=== PATIENT | female | born 1995 | race Caucasian/White ===

== ENCOUNTER 2018-01-02 12:28 | Emergency (ER) | payer SELFPAY ==
--- NOTE | 2018-01-02 12:58 | EDPHYS ---
Physician Documentation [facility] Name: Shania Martino Age: 22 yrs Sex: Female : 1995 Arrival Date: 01/02/2018 Time: 12:30 Bed 24 Private MD: Gómez Nunez ED Physician Akin Crockett HPI: 01/02 12:55 This 22 yrs old Female presents to ER via Ambulatory with complaints of Ear rn Pain. 12:55 The patient presents with pain. The complaints affect the right ear. Onset: The rn symptoms/episode began/occurred 1 week(s) ago. Modifying factors: The symptoms are alleviated by nothing, the symptoms are aggravated by pulling on ears, touching. Severity of symptoms: At their worst the symptoms were mild in the emergency department the symptoms are unchanged. The patient has not experienced similar symptoms in the past. The patient has not recently seen a physician. 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 - Social history:: Smoking status: Patient uses tobacco products, smokes one-half pack cigarettes per day. - Ebola Screening: : Patient negative for fever greater than or equal to 101.5 degrees Fahrenheit, and additional compatible Ebola Virus Disease symptoms Patient denies exposure to infectious person Patient denies travel to an Ebola-affected area in the 21 days before illness onset No symptoms or risks identified at this time. - Family history:: not pertinent. - Hospitalizations: : No recent hospitalization is reported. ROS: 12:55 Constitutional: Negative for fever, chills, and weight loss, Eyes: Negative for injury, rn pain, redness, and discharge, ENT: + right ear pain and drainage Exam: 12:55 Constitutional: This is a well developed, well nourished patient who is awake, alert, rn and in no acute distress. ENT: right TM with swelling and pain with palpation, + greenish discharge in external canal, TM not visualized Vital Signs: 12:52 BP 131 / 82; Pulse 105; Resp 16; Temp 98.4; Pulse Ox 98% on R/A; Weight 77.11 kg; aj Height 4 ft. 9 in. (144.78 cm); 12:52 Body Mass Index 36.79 (77.11 kg, 144.78 cm) aj MDM: 12:47 Patient medically screened. rn 12:55 Differential diagnosis: otitis externa. Data reviewed: vital signs, nurses notes, and rn as a result, I will discharge patient. Counseling: I had a detailed discussion with the patient and/or guardian regarding: the historical points, exam findings, and any diagnostic results supporting the discharge/admit diagnosis, the need for outpatient follow up, to return to the emergency department if symptoms worsen or persist or if there are any questions or concerns that arise at home. Special discussion: I discussed with the patient/guardian in detail that at this point there is no indication for admission to the hospital. It is understood, however, that if the symptoms persist or worsen the patient needs to return immediately for re-evaluation. Based on the history and exam findings, there is no indication for further emergent testing or inpatient evaluation. I discussed with the patient/guardian the need to see the ENT specialist for further evaluation of the symptoms. ED course: Told to f/u with ENT given diabetic and possible progression or possibility of fungal infection if abx dont work.. Administered Medications: No medications were administered Disposition: 01/02/18 12:57 Discharged to Home. Impression: Otitis externa in other diseases classified elsewhere, right ear. - Condition is Stable. - Discharge Instructions: Otitis Externa. - Prescriptions for Cipro 500 mg Oral Tablet - take 1 tablet by ORAL route every 12 hours for 10 days; 20 tablet. Cortisporin- TC 3.3-3-10-0.5 mg/mL Otic Suspension - instill 4 drop by OTIC route every 6 hours; 1 bottle. - Medication Reconciliation Form, Thank You Letter, Antibiotic Education, Prescription Opioid Use form. - Follow up: Nidia Galo MD; When: As needed; Reason: Recheck today's complaints, Re-evaluation by your physician. - Problem is an ongoing problem. - Symptoms are unchanged. Signatures: Nai Pelletier RN RN Akin Casas MD MD rn Reaves, Karey, RN RN kr2 Corrections: (The following items were deleted from the chart) 13:13 12:57 01/02/2018 12:57 Discharged to Home. Impression: Otitis externa in other diseases kr2 classified elsewhere, right ear. Condition is Stable. Prescriptions for Cipro 500 mg Oral Tablet - take 1 tablet by ORAL route every 12 hours for 10 days; 20 tablet, Cortisporin-TC 3.3-3-10-0.5 mg/mL Otic Suspension - instill 4 drop by OTIC route every 6 hours; 1 bottle. and Forms are Medication Reconciliation Form, Thank You Letter, Antibiotic Education, Prescription Opioid Use. Follow up: Nidia Galo; When: As needed; Reason: Recheck today's complaints, Re-evaluation by your physician. Problem is an ongoing problem. Symptoms are unchanged. rn
--- NOTE | 2018-01-02 12:58 | ER ---
Nurse's Notes [facility] Name: Shania Martino Age: 22 yrs Sex: Female : 1995 Arrival Date: 01/02/2018 Time: 12:30 Bed 24 Private MD: Gómez Nunez Diagnosis: Otitis externa in other diseases classified elsewhere, right ear Presentation: 01/02 12:50 Presenting complaint: Patient states: Right ear pain for 1 week. Denies fever. aj Transition of care: patient was not received from another setting of care. Onset of symptoms was December 27, 2017. Risk Assessment: Do you want to hurt yourself or someone else? Patient reports no desire to harm self or others. Initial Sepsis Screen: Does the patient meet any 2 criteria? No. Patient's initial sepsis screen is negative. Does the patient have a suspected source of infection? No. Patient's initial sepsis screen is negative. Care prior to arrival: None. 12:50 Method Of Arrival: Ambulatory aj 12:50 Acuity: NEGRO 5 aj Triage Assessment: 12:52 General: Appears in no apparent distress. comfortable, Behavior is calm, cooperative, aj appropriate for age. Pain: Complains of pain in right ear. EENT: Reports pain in right ear. Neuro: Level of Consciousness is awake, alert, obeys commands, Oriented to person, place, time, situation, Appropriate for age. Respiratory: Airway is patent Respiratory effort is even, unlabored, Respiratory pattern is regular, symmetrical. Derm: Skin is intact, is healthy with good turgor, Skin is pink, warm \T\ dry. normal. 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 - Social history:: Smoking status: Patient uses tobacco products, smokes one-half pack cigarettes per day. - Ebola Screening: : Patient negative for fever greater than or equal to 101.5 degrees Fahrenheit, and additional compatible Ebola Virus Disease symptoms Patient denies exposure to infectious person Patient denies travel to an Ebola-affected area in the 21 days before illness onset No symptoms or risks identified at this time. - Family history:: not pertinent. - Hospitalizations: : No recent hospitalization is reported. Screenin:12 Abuse screen: Denies threats or abuse. Denies injuries from another. Nutritional kr2 screening: No deficits noted. Tuberculosis screening: No symptoms or risk factors identified. Fall Risk None identified. Assessment: 13:00 General: Appears in no apparent distress. comfortable, well groomed, well developed, kr2 well nourished, Behavior is calm, cooperative, appropriate for age. Pain: Complains of pain in right ear Pain currently is 8 out of 10 on a pain scale. Quality of pain is described as aching, tender, Is continuous. Neuro: Level of Consciousness is awake, alert, obeys commands, Oriented to person, place, time, situation, Appropriate for age. Cardiovascular: Capillary refill < 3 seconds in bilateral fingers Patient's skin is warm and dry. Respiratory: Airway is patent Respiratory effort is even, unlabored, Respiratory pattern is regular, symmetrical. EENT: Ear canal w/ drainage noted from right ear. Derm: Skin is intact, is healthy with good turgor, Skin is pink, warm \T\ dry. Vital Signs: 12:52 BP 131 / 82; Pulse 105; Resp 16; Temp 98.4; Pulse Ox 98% on R/A; Weight 77.11 kg; aj Height 4 ft. 9 in. (144.78 cm); 12:52 Body Mass Index 36.79 (77.11 kg, 144.78 cm) aj ED Course: 12:30 Patient arrived in ED. sb2 12:31 Gómez Nunez MD is Private Physician. sb2 12:47 Akin Crockett MD is Attending Physician. rn 12:51 Triage completed. aj 12:52 Arm band placed on right wrist. Patient placed in an exam room. aj 12:57 Nidia Galo MD is Referral Physician. rn 13:10 Mandi Larios, ANASTASIA is Primary Nurse. kr2 13:12 Patient has correct armband on for positive identification. Bed in low position. Call kr2 light in reach. Side rails up X 1. Pulse ox on. NIBP on. Door closed. Warm blanket given. Head of bed elevated. 13:12 No provider procedures requiring assistance completed. Patient did not have IV access kr2 during this emergency room visit. Administered Medications: No medications were administered Outcome: 12:57 Discharge ordered by . rn 13:12 Discharged to home ambulatory, with family. kr2 13:12 Condition: good 13:12 Discharge instructions given to patient, family, Instructed on discharge instructions, follow up and referral plans. medication usage, Demonstrated understanding of instructions, follow-up care, medications, Prescriptions given X 2. 13:13 Patient left the ED. kr2 Signatures: Nai Pelletier RN Akin Tam MD MD rn Reaves, Karey, RN RN kr2 Mary Menendez sb2
[2018-01-02 13:16] VITALS: BP 131/82; TEMP 98.4; O2SAT 98
== END 2018-01-02 13:13 | disposition home or self-care (01) ==
LOC: ER 12:28
DX: H60.91 Unspecified otitis externa, right ear (principal); F17.210 Nicotine dependence, cigarettes, uncomplicated; F20.9 Schizophrenia, unspecified
CPT/HCPCS: 99283

== ENCOUNTER 2018-03-23 21:51 | Emergency (ER) | payer OTHER, SELFPAY ==
--- NOTE | 2018-03-23 23:12 | ER ---
Nurse's Notes [facility] Name: Shania Martino Age: 23 yrs Sex: Female : 1995 Arrival Date: 03/23/2018 Time: 21:52 Bed 23 Private MD: Diagnosis: Other sprain of right thumb Presentation: 03/23 22:25 Presenting complaint: Patient states: right hand, wrist pain started tonight while tl3 playing with daughter, unable to move wrist, thumb or index finger. Transition of care: patient was not received from another setting of care. Onset of symptoms was March 23, 2018. Risk Assessment: Do you want to hurt yourself or someone else? Patient reports no desire to harm self or others. Initial Sepsis Screen: Does the patient meet any 2 criteria? No. Patient's initial sepsis screen is negative. Does the patient have a suspected source of infection? No. Patient's initial sepsis screen is negative. Care prior to arrival: None. 22:25 Method Of Arrival: Ambulatory tl3 22:25 Acuity: NEGRO 4 tl3 Triage Assessment: 22:28 General: Appears in no apparent distress. uncomfortable, well groomed, well developed, tl3 well nourished, Behavior is calm, cooperative, appropriate for age. Pain: Complains of pain in dorsal aspect of distal phalanx of right thumb, dorsal aspect of proximal phalanx of right thumb, dorsal aspect of distal phalanx of right index finger, dorsal aspect of middle phalanx of right index finger, dorsal aspect of proximal phalanx of right index finger, dorsal aspect of right wrist and Right first web space. EENT: No signs and/or symptoms were reported regarding the EENT system. Neuro: Level of Consciousness is awake, alert, obeys commands, Oriented to person, place, time, situation, Appropriate for age. Cardiovascular: Patient's skin is warm and dry. Respiratory: Airway is patent Respiratory effort is even, unlabored, Respiratory pattern is regular, symmetrical. GI: No signs and/or symptoms were reported involving the gastrointestinal system. : No signs and/or symptoms were reported regarding the genitourinary system. Derm: No signs and/or symptoms reported regarding the dermatologic system. Musculoskeletal: Reports pain in right hand. 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 - Social history:: Smoking status: unknown. - Ebola Screening: : No symptoms or risks identified at this time. - Family history:: not pertinent. Screenin:29 Abuse screen: Denies threats or abuse. Nutritional screening: No deficits noted. tl3 Tuberculosis screening: No symptoms or risk factors identified. Fall Risk None identified. Assessment: 23:27 Reassessment: Patient appears in no apparent distress at this time. No changes from tl3 previously documented assessment. Patient and/or family updated on plan of care and expected duration. Pain level reassessed. Vital Signs: 22:28 BP 122 / 88; Pulse 101; Resp 18; Temp 98.6; Pulse Ox 100% on R/A; tl3 23:27 BP 137 / 72; Pulse 101; Resp 18; Pulse Ox 96% ; tl3 ED Course: 21:52 Patient arrived in ED. ds1 22:11 Harpreet Briones MD is Attending Physician. mau 22:19 Dee Johnson, ANASTASIA is Primary Nurse. tl3 22:26 Triage completed. tl3 22:28 Arm band placed on left wrist. tl3 23:11 Jere Reyes MD is Referral Physician. mau 23:19 X-ray completed. Portable x-ray completed in exam room. Patient tolerated procedure kw well. 23:22 Hand Right 3 View XRAY In Process Unspecified. EDMS 23:22 Wrist Right 3 View XRAY In Process Unspecified. EDMS 23:27 Orthoglass splint: Thumb spica splint applied on right forearm. ds4 23:29 Patient has correct armband on for positive identification. Bed in low position. tl3 23:29 No provider procedures requiring assistance completed. Patient did not have IV access tl3 during this emergency room visit. Administered Medications: 23:18 Drug: Motrin 600 mg Route: PO; rv 23:29 Follow up: Response: No adverse reaction tl3 Outcome: 23:11 Discharge ordered by . mau 23:29 Discharged to home ambulatory. tl3 23:29 Condition: improved 23:29 Discharge instructions given to patient, Instructed on discharge instructions, follow up and referral plans. Demonstrated understanding of instructions, follow-up care, medications, splint care, Prescriptions given X 2. 23:38 Patient left the ED. tl3 Signatures: Dispatcher [employer] EDMS Harpreet Briones MD MD cha Sanford, Demi ds1 Mary Ann Chadwick Donovan ds4 Charla Maynard bb2 Dee Johnson, ANASTASIA RN tl3 Pete Jansen, ANASTASIA RN rv Corrections: (The following items were deleted from the chart) 23:19 23:18 X-ray completed. Portable x-ray completed in exam room. Patient tolerated bb2 procedure well. bb2
--- NOTE | 2018-03-23 23:12 | EDPHYS ---
Physician Documentation [facility] Name: Shania Martino Age: 23 yrs Sex: Female : 1995 Arrival Date: 03/23/2018 Time: 21:52 Bed 23 Private MD: ED Physician Harpreet Briones HPI: 03/23 22:57 This 23 yrs old Female presents to ER via Ambulatory with complaints of Hand mau Pain. 22:57 The patient or guardian reports decreased range of motion, pain. The complaints affect mau the MCP of right thumb and CMC of right thumb. Context: The problem was sustained at home. Onset: The symptoms/episode began/occurred 1 week(s) ago. Modifying factors: The symptoms are alleviated by holding still, the symptoms are aggravated by movement, dependent position. Associated signs and symptoms: The patient has no apparent associated signs or symptoms. Severity of symptoms: At their worst the symptoms were mild, moderate, in the emergency department the symptoms are unchanged. The patient has not experienced similar symptoms in the past. 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 - Social history:: Smoking status: unknown. - Ebola Screening: : No symptoms or risks identified at this time. - Family history:: not pertinent. ROS: 22:57 Constitutional: Negative for fever, chills, and weight loss, Eyes: Negative for injury, mau pain, redness, and discharge, ENT: Negative for injury, pain, and discharge, Neck: Negative for injury, pain, and swelling, Cardiovascular: Negative for chest pain, palpitations, and edema, Respiratory: Negative for shortness of breath, cough, wheezing, and pleuritic chest pain, Abdomen/GI: Negative for abdominal pain, nausea, vomiting, diarrhea, and constipation, Back: Negative for injury and pain, : Negative for injury, bleeding, discharge, and swelling, Skin: Negative for injury, rash, and discoloration, Neuro: Negative for headache, weakness, numbness, tingling, and seizure, Psych: Negative for depression, anxiety, suicide ideation, homicidal ideation, and hallucinations, Allergy/Immunology: Negative for hives, rash, and allergies, Endocrine: Negative for neck swelling, polydipsia, polyuria, polyphagia, and marked weight changes, Hematologic/Lymphatic: Negative for swollen nodes, abnormal bleeding, and unusual bruising. 22:57 MS/extremity: Positive for decreased range of motion, pain, swelling, tenderness, of the dorsal aspect of proximal phalanx of right thumb and dorsal aspect of right wrist. Exam: 22:57 Constitutional: This is a well developed, well nourished patient who is awake, alert, mau and in no acute distress. Head/Face: Normocephalic, atraumatic. Eyes: Pupils equal round and reactive to light, extra-ocular motions intact. Lids and lashes normal. Conjunctiva and sclera are non-icteric and not injected. Cornea within normal limits. Periorbital areas with no swelling, redness, or edema. ENT: Nares patent. No nasal discharge, no septal abnormalities noted. Tympanic membranes are normal and external auditory canals are clear. Oropharynx with no redness, swelling, or masses, exudates, or evidence of obstruction, uvula midline. Mucous membranes moist. Neck: Trachea midline, no thyromegaly or masses palpated, and no cervical lymphadenopathy. Supple, full range of motion without nuchal rigidity, or vertebral point tenderness. No Meningismus. Chest/axilla: Normal chest wall appearance and motion. Nontender with no deformity. No lesions are appreciated. Cardiovascular: Regular rate and rhythm with a normal S1 and S2. No gallops, murmurs, or rubs. Normal PMI, no JVD. No pulse deficits. Respiratory: Lungs have equal breath sounds bilaterally, clear to auscultation and percussion. No rales, rhonchi or wheezes noted. No increased work of breathing, no retractions or nasal flaring. Abdomen/GI: Soft, non-tender, with normal bowel sounds. No distension or tympany. No guarding or rebound. No evidence of tenderness throughout. Back: No spinal tenderness. No costovertebral tenderness. Full range of motion. Skin: Warm, dry with normal turgor. Normal color with no rashes, no lesions, and no evidence of cellulitis. Neuro: Awake and alert, GCS 15, oriented to person, place, time, and situation. Cranial nerves II-XII grossly intact. Motor strength 5/5 in all extremities. Sensory grossly intact. Cerebellar exam normal. Normal gait. Psych: Awake, alert, with orientation to person, place and time. Behavior, mood, and affect are within normal limits. 22:57 Musculoskeletal/extremity: ROM: limited active range of motion, limited passive range of motion, Circulation is intact in all extremities. Compartment Syndrome exam of affected extremity: is normal. DVT Exam: no swelling, negative Homans' sign noted on exam, no appreciated bluish discoloration, no erythema, no increased warmth, pain, tenderness. Vital Signs: 22:28 BP 122 / 88; Pulse 101; Resp 18; Temp 98.6; Pulse Ox 100% on R/A; tl3 23:27 BP 137 / 72; Pulse 101; Resp 18; Pulse Ox 96% ; tl3 MDM: 22:11 Patient medically screened. [facility] 22:57 Data reviewed: vital signs, nurses notes, radiologic studies. [facility] 03/23 22:56 Order name: Hand Right 3 View XRAY [facility] 03/23 22:56 Order name: Wrist Right 3 View XRAY [facility] 03/23 22:56 Order name: Thumb Spica Splint; Complete Time: 23:26 [facility] Administered Medications: 23:18 Drug: Motrin 600 mg Route: PO; rv 23:29 Follow up: Response: No adverse reaction tl3 Disposition: 03/23/18 23:11 Discharged to Home. Impression: Other sprain of right thumb. - Condition is Stable. - Discharge Instructions: Thumb Sprain. - Prescriptions for Ibuprofen 600 mg Oral Tablet - take 1 tablet by ORAL route every 8 hours As needed take with food; 21 tablet. Tylenol- Codeine #3 300-30 mg Oral Tablet - take 2 tablets by ORAL route every 6 hours As needed; 26 tablet. - Medication Reconciliation Form, Thank You Letter, Antibiotic Education, Prescription Opioid Use form. - Follow up: Private Physician; When: 2 - 3 days; Reason: Recheck today's complaints, Continuance of care, Re-evaluation by your physician. Follow up: Jere Reyes; When: 2 - 3 days; Reason: Recheck today's complaints, Re-evaluation by your physician. - Problem is new. - Symptoms have improved. Signatures: Dispatcher [employer] EDHarpreet Evangelista MD MD cha Lowrey, Tammy, RN RN tl3 Pete Jansen, RN RN rv Corrections: (The following items were deleted from the chart) 23:38 23:11 03/23/2018 23:11 Discharged to Home. Impression: Other sprain of right thumb. tl3 Condition is Stable. Discharge Instructions: Thumb Sprain. Prescriptions for Ibuprofen 600 mg Oral Tablet - take 1 tablet by ORAL route every 8 hours As needed take with food; 21 tablet, Tylenol-Codeine #3 300-30 mg Oral Tablet - take 2 tablets by ORAL route every 6 hours As needed; 26 tablet. and Forms are Medication Reconciliation Form, Thank You Letter, Antibiotic Education, Prescription Opioid Use. Follow up: Private Physician; When: 2 - 3 days; Reason: Recheck today's complaints, Continuance of care, Re-evaluation by your physician. Follow up: Jere Reyes; When: 2 - 3 days; Reason: Recheck today's complaints, Re-evaluation by your physician. Problem is new. Symptoms have improved. mau
[2018-03-23] MEDS ORDERED: IBUPROFEN 400 MG TAB ONE (23:22)
[2018-03-23] MEDS ORDERED: IBUPROFEN 200 MG TAB PO ONE (23:22)
[2018-03-24 01:04] VITALS: TEMP 98.6
[2018-03-24 01:05] VITALS: BP 137/72; O2SAT 96
--- NOTE | 2018-03-24 08:43 | RAD REPORT ---
EXAM DESCRIPTION: RAD - Wrist Right 3 View - 03/23/2018 11:22 pm CLINICAL HISTORY: Hand and wrist pain, no specific trauma history or point tenderness detailed COMPARISON: None. FINDINGS: No fracture is identified. There is no dislocation or periosteal reaction noted. No acute bone or joint finding seen. No foreign body or other soft tissue abnormality. IMPRESSION: Negative right wrist examination.
--- NOTE | 2018-03-24 08:45 | RAD REPORT ---
EXAM DESCRIPTION: RAD - Hand Right 3 View - 03/23/2018 11:22 pm CLINICAL HISTORY: Right hand and wrist pain common no specific trauma history or point tenderness de lineated. COMPARISON: None. FINDINGS: No fracture is identified. There is no dislocation or periosteal reaction noted. No forei gn body or other soft tissue abnormality. IMPRESSION: Negative right hand examination.
== END 2018-03-23 23:38 | disposition home or self-care (01) ==
LOC: ER 21:51
DX: S63.681A Other sprain of right thumb, initial encounter (principal); X58.XXXA Exposure to other specified factors, initial encounter; Y93.9 Activity, unspecified; Y92.009 Unspecified place in unspecified non-institutional (private) residence as the place of occurrence of the external cause; F31.9 Bipolar disorder, unspecified; F32.9 Major depressive disorder, single episode, unspecified
CPT/HCPCS: 99284

== ENCOUNTER 2018-04-24 18:20 | Emergency (ER) | payer OTHER ==
[2018-04-24] MEDS ORDERED: ONDANSETRON 4 MG/2 ML VIAL ONE (19:07)
[2018-04-24] MEDS ORDERED: FENTANYL CITR 100 MCG/2 ML ONE (19:07)
[2018-04-24] MEDS ORDERED: NA CHLORIDE 0.9% 1,000 ML ONE (19:08)
[2018-04-24 19:18] LABS: Absolute Monocytes 0.7 K/uL (0.1-1.3); Absolute Neutrophil 7.3 K/uL (1.8-8.0); Basophils % 0.6 % (0-1.3); Eosinophils % 2.3 % (0-4.4); Lymphocytes % 32.4 % (15.3-44.8); MCH 29.6 pg (27.0-35.0); MCV 87.3 fL (80-100); MPV 8.5 fL (7.6-11.3); Monocytes % 5.9 % (3.3-12.3); RBC Red Blood Cell Count 4.92 M/uL (3.86-4.86)
[2018-04-24 19:33] LABS: Albumin 3.9 g/dL (3.4-5.0); Bilirubin Total 0.3 mg/dL (0.2-1.0); Potassium 3.9 mmol/L (3.5-5.1); Protein, Total 7.5 g/dL (6.4-8.2)
[2018-04-24 19:33] LABS: Urine Blood TRACE (NEG); Urine Glucose NEGATIVE (NEG); Urine Protein NEGATIVE (NEG); Urine Specific Gravity >1.030 (1.005-1.030)
--- NOTE | 2018-04-24 20:00 | RAD REPORT ---
EXAM DESCRIPTION: CT - Stone Protocol - 04/24/2018 7:48 pm CLINICAL HISTORY: Flank pain. Abd pain;Flank pain COMPARISON: No comparisons TECHNIQUE: Axial images were obtained without oral or IV contrast. Lack of contrast limits solid org an and vascular assessment. The [id number] spans the entirety of the system partially obscuring uppermost abdomen and lung bases. Coronal reformatted images were obtained and reviewed. All CT scans are performed using dose optimization technique as appropriate and may include automated exposure control or mA/KV adjustment according to patient size. FINDINGS: The lower lung sher are clear. Imaged portions of the liver and spleen show no suspicious findings on non-contrast imaging. The panc reas and adrenal glands are normal. No pathologic lymphadenopathy in the abdomen or pelvis. No urinary tract stones or obstructive uropathy. No bowel obstruction, free air, free fluid or abscess. Normal appendix noted. No significant bony abnormality. IMPRESSION: No urinary tract stones or obstructive uropathy.
--- NOTE | 2018-04-24 20:04 | ER ---
Nurse's Notes [facility] Name: Shania Martino Age: 23 yrs Sex: Female : 1995 Arrival Date: 04/24/2018 Time: 18:22 Bed 6 Private MD: KAREN MIGUEL Diagnosis: Abdominal tenderness;Bipolar disorder;Dysuria Presentation: 04/24 18:31 Presenting complaint: Patient states: left flank pain/kidney pain X 1 week, denies pain iw or burning with urination, has had some vomiting and nausea, denies fever. Transition of care: patient was not received from another setting of care. Onset of symptoms was April 17, 2018. Risk Assessment: Do you want to hurt yourself or someone else? Patient reports no desire to harm self or others. Initial Sepsis Screen: Does the patient meet any 2 criteria? No. Patient's initial sepsis screen is negative. Does the patient have a suspected source of infection? No. Patient's initial sepsis screen is negative. Care prior to arrival: None. 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 - Social history:: Smoking status: Patient uses tobacco products, denies chronic smoking, but will smoke occasionally. - Ebola Screening: : Patient negative for fever greater than or equal to 101.5 degrees Fahrenheit, and additional compatible Ebola Virus Disease symptoms Patient denies exposure to infectious person Patient denies travel to an Ebola-affected area in the 21 days before illness onset No symptoms or risks identified at this time. - Family history:: not pertinent. Screenin:47 Abuse screen: Denies threats or abuse. Denies injuries from another. Nutritional rv screening: No deficits noted. Tuberculosis screening: No symptoms or risk factors identified. Fall Risk None identified. Assessment: 18:45 General: Appears in no apparent distress. comfortable, Behavior is calm, cooperative. rv Pain: Complains of pain in left flank Pain radiates to right flank. Neuro: Level of Consciousness is awake, alert, obeys commands, Oriented to person, place, time, situation. Cardiovascular: Capillary refill < 3 seconds. Respiratory: Airway is patent. GI: No signs and/or symptoms were reported involving the gastrointestinal system. : No signs and/or symptoms were reported regarding the genitourinary system. EENT: No signs and/or symptoms were reported regarding the EENT system. Derm: Skin is intact. 19:11 Reassessment: Patient appears in no apparent distress at this time. No changes from ak1 previously documented assessment. Patient is alert, oriented x 3, equal unlabored respirations, skin warm/dry/pink. Vital Signs: 18:34 BP 131 / 86; Pulse 104; Resp 16; Pulse Ox 98% on R/A; Weight 85.73 kg; Height 4 ft. 9 iw in. (144.78 cm); Pain 8/10; 18:48 Temp 98.5(O); rv 20:17 BP 121 / 71; Pulse 87; Resp 19; Temp 98.6; Pulse Ox 100% on R/A; Pain 1/10; ak1 18:34 Body Mass Index 40.90 (85.73 kg, 144.78 cm) iw ED Course: 18:22 Patient arrived in ED. rg4 18:22 KAREN MIGUEL is Private Physician. rg4 18:26 Harpreet Briones MD is Attending Physician. mau 18:32 Triage completed. iw 18:34 Arm band placed on. iw 18:47 Patient has correct armband on for positive identification. Bed in low position. Call rv light in reach. Side rails up X 1. Adult w/ patient. Pulse ox on. NIBP on. 18:57 Nichole Gould RN is Primary Nurse. ak1 19:00 Initial lab(s) drawn, by de, sent to lab. Inserted saline lock: 20 gauge in left rv forearm, using aseptic technique. Blood collected. 19:14 EKG done, by ED staff, reviewed by Harpreet Briones MD. cb2 19:20 Report given to NICHOLE OCONNOR. rv 19:30 Urine Dipstick--Ancillary (enter results) Sent. ak1 19:30 Urine --Ancillary (enter results) Sent. ak1 19:49 CT Stone Protocol In Process Unspecified. EDAZ 20:04 KAREN MIGUEL is Referral Physician. [facility] 20:17 No provider procedures requiring assistance completed. IV discontinued, intact, ak1 bleeding controlled, No redness/swelling at site. Pressure dressing applied. Administered Medications: 19:00 Drug: NS 0.9% 1000 ml Route: IV; Rate: 1 bolus; Site: left forearm; rv 20:17 Follow up: IV Status: Completed infusion ak1 19:00 Drug: fentaNYL (PF) 25 mcg Route: IVP; Site: left forearm; rv 19:30 Follow up: Response: No adverse reaction ak1 19:00 Drug: Zofran 4 mg Route: IVP; Site: left forearm; rv 19:29 Follow up: Response: No adverse reaction ak1 20:16 Not Given (Patient Refused): fentaNYL (PF) 25 mcg IVP once ak1 Outcome: 20:04 Discharge ordered by . [facility] 20:18 Discharged to home ambulatory, with family. ak1 20:18 Condition: stable 20:18 Discharge instructions given to patient, family, Instructed on discharge instructions, follow up and referral plans. no drinking with medication, no driving heavy equipment, medication usage, safe sex practices, Demonstrated understanding of instructions, follow-up care, medications, Prescriptions given X 3. 20:18 Patient left the ED. ak1 Signatures: Dispatcher [employer] [facility] Harpreet Briones MD MD cha Williams, Irene, RN RN iw Krenek, Amber, RN RN ak1 Garcia, Rubi rg4 Bulan, Christian cb2 Vicente, Ronaldo, RN RN rv
--- NOTE | 2018-04-24 20:05 | EDPHYS ---
Physician Documentation [facility] Name: Shania Martino Age: 23 yrs Sex: Female : 1995 Arrival Date: 04/24/2018 Time: 18:22 Bed 6 Private MD: KAREN MIGUEL ED Physician Harpreet Briones HPI: 04/24 18:56 This 23 yrs old Female presents to ER via Ambulatory with complaints of Low mau Back Pain. 18:56 The patient presents with pain that is acute. The symptoms are located in the low back. mau The pain radiates to the left low back and left mid back. The problem was sustained from unknown cause. Onset: The symptoms/episode began/occurred just prior to arrival. Modifying factors: The patient symptoms are alleviated by nothing, the patient symptoms are aggravated by any movement, movement, nothing. Associated signs and symptoms: The patient has no apparent associated signs or symptoms. Severity of symptoms: At their worst the symptoms were mild, moderate, in the emergency department the symptoms are unchanged. The patient has not experienced similar symptoms in the past. 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 - Social history:: Smoking status: Patient uses tobacco products, denies chronic smoking, but will smoke occasionally. - Ebola Screening: : Patient negative for fever greater than or equal to 101.5 degrees Fahrenheit, and additional compatible Ebola Virus Disease symptoms Patient denies exposure to infectious person Patient denies travel to an Ebola-affected area in the 21 days before illness onset No symptoms or risks identified at this time. - Family history:: not pertinent. ROS: 18:56 Constitutional: Negative for fever, chills, and weight loss, Eyes: Negative for injury, mau pain, redness, and discharge, ENT: Negative for injury, pain, and discharge, Neck: Negative for injury, pain, and swelling, Cardiovascular: Negative for chest pain, palpitations, and edema, Respiratory: Negative for shortness of breath, cough, wheezing, and pleuritic chest pain, : Negative for injury, bleeding, discharge, and swelling, MS/Extremity: Negative for injury and deformity, Skin: Negative for injury, rash, and discoloration, Neuro: Negative for headache, weakness, numbness, tingling, and seizure, Psych: Negative for depression, anxiety, suicide ideation, homicidal ideation, and hallucinations, Allergy/Immunology: Negative for hives, rash, and allergies, Endocrine: Negative for neck swelling, polydipsia, polyuria, polyphagia, and marked weight changes, Hematologic/Lymphatic: Negative for swollen nodes, abnormal bleeding, and unusual bruising. 18:56 Abdomen/GI: Positive for abdominal pain. 18:56 Back: Positive for pain at rest, flank pain, on the left. Exam: 18:56 Constitutional: This is a well developed, well nourished patient who is awake, alert, mau and in no acute distress. Head/Face: Normocephalic, atraumatic. Eyes: Pupils equal round and reactive to light, extra-ocular motions intact. Lids and lashes normal. Conjunctiva and sclera are non-icteric and not injected. Cornea within normal limits. Periorbital areas with no swelling, redness, or edema. ENT: Nares patent. No nasal discharge, no septal abnormalities noted. Tympanic membranes are normal and external auditory canals are clear. Oropharynx with no redness, swelling, or masses, exudates, or evidence of obstruction, uvula midline. Mucous membranes moist. Neck: Trachea midline, no thyromegaly or masses palpated, and no cervical lymphadenopathy. Supple, full range of motion without nuchal rigidity, or vertebral point tenderness. No Meningismus. Chest/axilla: Normal chest wall appearance and motion. Nontender with no deformity. No lesions are appreciated. Cardiovascular: Regular rate and rhythm with a normal S1 and S2. No gallops, murmurs, or rubs. Normal PMI, no JVD. No pulse deficits. Respiratory: Lungs have equal breath sounds bilaterally, clear to auscultation and percussion. No rales, rhonchi or wheezes noted. No increased work of breathing, no retractions or nasal flaring. Female : Normal external genitalia. Skin: Warm, dry with normal turgor. Normal color with no rashes, no lesions, and no evidence of cellulitis. MS/ Extremity: Pulses equal, no cyanosis. Neurovascular intact. Full, normal range of motion. Neuro: Awake and alert, GCS 15, oriented to person, place, time, and situation. Cranial nerves II-XII grossly intact. Motor strength 5/5 in all extremities. Sensory grossly intact. Cerebellar exam normal. Normal gait. Psych: Awake, alert, with orientation to person, place and time. Behavior, mood, and affect are within normal limits. 18:56 Abdomen/GI: Inspection: abdomen appears normal, Bowel sounds: normal, Palpation: moderate abdominal tenderness, Liver: no appreciated palpable abnormalities, Hernia: not appreciated. Vital Signs: 18:34 BP 131 / 86; Pulse 104; Resp 16; Pulse Ox 98% on R/A; Weight 85.73 kg; Height 4 ft. 9 iw in. (144.78 cm); Pain 8/10; 18:48 Temp 98.5(O); rv 20:17 BP 121 / 71; Pulse 87; Resp 19; Temp 98.6; Pulse Ox 100% on R/A; Pain 1/10; ak1 18:34 Body Mass Index 40.90 (85.73 kg, 144.78 cm) iw MDM: 18:26 Patient medically screened. [facility] 19:01 Data reviewed: vital signs, nurses notes, lab test result(s), EKG, radiologic studies. [facility] 04/24 18:53 Order name: Urine Dipstick--Ancillary (enter results) 04/24 18:53 Order name: Urine --Ancillary (enter results) 04/24 18:54 Order name: Urine Dipstick-Ancillary; Complete Time: 19:47 [facility] 04/24 18:54 Order name: Urine --Ancillary; Complete Time: 19:47 [facility] 04/24 18:55 Order name: CBC with Diff; Complete Time: 19:31 [facility] 04/24 18:55 Order name: Comprehensive Metabolic Panel; Complete Time: 19:47 [facility] 04/24 18:29 Order name: Urine Dipstick-Ancillary (obtain specimen); Complete Time: 18:45 [facility] 04/24 18:55 Order name: CT Stone Protocol; Complete Time: 20:04 [facility] 04/24 18:55 Order name: Lipase; Complete Time: 19:48 [facility] 04/24 18:55 Order name: EKG; Complete Time: 18:56 [facility] 04/24 18:29 Order name: Urine Test (obtain specimen); Complete Time: 18:45 [facility] 04/24 18:55 Order name: EKG - Nurse/Tech; Complete Time: 19:14 [facility] Administered Medications: 19:00 Drug: NS 0.9% 1000 ml Route: IV; Rate: 1 bolus; Site: left forearm; rv 20:17 Follow up: IV Status: Completed infusion ak1 19:00 Drug: fentaNYL (PF) 25 mcg Route: IVP; Site: left forearm; rv 19:30 Follow up: Response: No adverse reaction ak1 19:00 Drug: Zofran 4 mg Route: IVP; Site: left forearm; rv 19:29 Follow up: Response: No adverse reaction ak1 20:16 Not Given (Patient Refused): fentaNYL (PF) 25 mcg IVP once ak1 Disposition: 04/24/18 20:04 Discharged to Home. Impression: Abdominal tenderness, Bipolar disorder, Dysuria. - Condition is Stable. - Discharge Instructions: Abdominal Pain, Adult, Dysuria, Abdominal Pain, Adult, [id number]. - Prescriptions for Bentyl 20 mg Oral Tablet - take 1 tablet by ORAL route every 6 hours As needed; 20 tablet. Motrin IB 200 mg Oral Tablet - take 2 tablet by ORAL route every 6 hours As needed as needed with food; 20 tablet. Bactrim DS 800- 160 mg Oral Tablet - take 1 tablet by ORAL route every 12 hours for 7 days; 14 tablet. - Medication Reconciliation Form, Thank You Letter, Antibiotic Education, Prescription Opioid Use form. - Follow up: KAREN MIGUEL; When: 2 - 3 days; Reason: Recheck today's complaints, Continuance of care, Re-evaluation by your physician. - Problem is new. - Symptoms have improved. Signatures: Dispatcher [employer] Harpreet Yadav MD MD cha Williams, Irene, RN RN iw Nichole Gould RN RN ak1 Pete Jansen, RN RN rv Corrections: (The following items were deleted from the chart) 20:18 20:04 04/24/2018 20:04 Discharged to Home. Impression: Abdominal tenderness; Bipolar ak1 disorder; Dysuria. Condition is Stable. Discharge Instructions: Abdominal Pain, Adult, Dysuria, Abdominal Pain, Adult, [id number]. Prescriptions for Bentyl 20 mg Oral Tablet - take 1 tablet by ORAL route every 6 hours As needed; 20 tablet, Motrin IB 200 mg Oral Tablet - take 2 tablet by ORAL route every 6 hours As needed as needed with food; 20 tablet, Bactrim DS 800-160 mg Oral Tablet - take 1 tablet by ORAL route every 12 hours for 7 days; 14 tablet. and Forms are Medication Reconciliation Form, Thank You Letter, Antibiotic Education, Prescription Opioid Use. Follow up: KAREN MIGUEL; When: 2 - 3 days; Reason: Recheck today's complaints, Continuance of care, Re-evaluation by your physician. Problem is new. Symptoms have improved. mau
[2018-04-24 21:05] VITALS: BP 121/71; TEMP 98.6; O2SAT 100
--- NOTE | 2018-04-25 07:48 | EKG ---
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
== END 2018-04-24 20:18 | disposition home or self-care (01) ==
LOC: ER 18:20
DX: R30.0 Dysuria (principal); F31.9 Bipolar disorder, unspecified; E11.9 Type 2 diabetes mellitus without complications; F32.9 Major depressive disorder, single episode, unspecified; Z72.0 Tobacco use; Z79.4 Long term (current) use of insulin; Z88.0 Allergy status to penicillin
CPT/HCPCS: 36415; 74176; 76377; 80053; 81003; 81025; 83690; 85025; 93005; 96361; 96374; 96375; 99284; J2405; J3010; J7030

== ENCOUNTER 2019-01-14 23:59 | Emergency (ER) | payer OTHER ==
[2019-01-15] MEDS ORDERED: MAGNE/ALUM HYDROXD 30 ML UCUP ONE (00:47)
[2019-01-15] MEDS ORDERED: NA CHLORIDE 0.9% 1,000 ML ONE (00:48)
[2019-01-15] MEDS ORDERED: LIDOCAINE VISCOUS 2% SOLN 15 ML UDC ONE (00:48)
[2019-01-15 01:19] LABS: Absolute Lymphocytes (CBC) 4.9 K/uL (0.7-4.9); Basophils % 1.2 % (0-1.3); Hematocrit 41.8 % (36.0-45.0); Lymphocytes % 36.8 % (15.3-44.8); MPV 9.1 fL (7.6-11.3); RBC Red Blood Cell Count 4.82 M/uL (3.86-4.86)
[2019-01-15 01:29] LABS: ALT/SGPT 54 U/L (12-78); AST/SGOT 18 U/L (15-37); Albumin 4.1 g/dL (3.4-5.0); Alkaline Phosphatase 119 U/L (45-117); BUN Blood Urea Nitrogen 9 mg/dL (7-18); Bicarbonate 27 mmol/L (21-32); Bilirubin Direct < 0.1 mg/dL (0-0.2); Bilirubin Total 0.3 mg/dL (0.2-1.0); Glucose Level 144 mg/dL (74-106); Lipase 190 U/L (73-393); Potassium 3.5 mmol/L (3.5-5.1); Protein, Total 7.4 g/dL (6.4-8.2); Sodium Level 141 mmol/L (136-145)
[2019-01-15] MEDS ORDERED: ONDANSETRON 4 MG/2 ML VIAL ONE (02:11)
[2019-01-15] MEDS ORDERED: MORPHINE 2 MG/ML SYR ONE (02:11)
[2019-01-15 03:31] LABS: Urine Blood TRACE (NEG); Urine Glucose NEGATIVE (NEG); Urine Protein NEGATIVE (NEG); Urine Specific Gravity 1.025 (1.005-1.030); Urine pH 6.5 (5.0-7.0)
--- NOTE | 2019-01-15 03:35 | ER ---
Nurse's Notes [facility] Name: Shania Martino Age: 23 yrs Sex: Female : 1995 Arrival Date: 01/15/2019 Time: 00:03 Bed 2 Private MD: Diagnosis: Biliary colic Presentation: 01/15 00:20 Presenting complaint: Patient states: intermittent abd pain [id number] with pain becoming ak1 constant over the past 2 weeks. pt stated she vomited X3 today. Transition of care: patient was not received from another setting of care. Onset of symptoms is unknown. Risk Assessment: Do you want to hurt yourself or someone else? Patient reports no desire to harm self or others. Initial Sepsis Screen: Does the patient meet any 2 criteria? No. Patient's initial sepsis screen is negative. Does the patient have a suspected source of infection? No. Patient's initial sepsis screen is negative. Care prior to arrival: None. 00:20 Method Of Arrival: Ambulatory ak1 00:20 Acuity: NEGRO 3 ak1 Triage Assessment: 00:22 General: Appears in no apparent distress. Behavior is calm, cooperative. 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 - Social history:: Smoking status: Patient uses tobacco products, smokes one-half pack cigarettes per day. - Ebola Screening: : No symptoms or risks identified at this time. Screenin:43 Abuse screen: Denies threats or abuse. Nutritional screening: No deficits noted. jd3 Tuberculosis screening: No symptoms or risk factors identified. Fall Risk Ambulatory Aid- None/Bed Rest/Nurse Assist (0 pts). Gait- Normal/Bed Rest/Wheelchair (0 pts) Mental Status- Oriented to own ability (0 pts). Total Renner Fall Scale indicates No Risk (0-24 pts). Assessment: 00:41 General: Appears in no apparent distress. uncomfortable, Behavior is calm, cooperative, jd3 appropriate for age. Pain: Complains of pain in right upper quadrant and left lower quadrant Quality of pain is described as aching, sharp, tender. Neuro: Level of Consciousness is awake, alert, obeys commands, Oriented to person, place, time, situation. Cardiovascular: Denies chest pain, shortness of breath, Capillary refill < 3 seconds Patient's skin is warm and dry. Respiratory: Airway is patent Respiratory effort is even, unlabored, Respiratory pattern is regular, symmetrical, Denies cough, shortness of breath. GI: Abdomen is round non-distended, Bowel sounds present X 4 quads. Abd is soft and non tender X 4 quads. Reports lower abdominal pain, upper abdominal pain, nausea, vomiting, Patient currently denies constipation, diarrhea. : No signs and/or symptoms were reported regarding the genitourinary system. EENT: No signs and/or symptoms were reported regarding the EENT system. Derm: Skin is intact, Skin is dry, Skin is normal, Skin temperature is warm. Musculoskeletal: Circulation, motion, and sensation intact. Range of motion: intact in all extremities. 01:13 Reassessment: Patient appears in no apparent distress at this time. Patient and/or jd3 family updated on plan of care and expected duration. Pain level reassessed. Patient is alert, oriented x 3, equal unlabored respirations, skin warm/dry/pink. awaiting results. 02:19 Reassessment: Patient appears in no apparent distress at this time. No changes from jd3 previously documented assessment. Patient and/or family updated on plan of care and expected duration. Pain level reassessed. Patient is alert, oriented x 3, equal unlabored respirations, skin warm/dry/pink. awaiting CT results. 03:23 Reassessment: Patient appears in no apparent distress at this time. Patient and/or jd3 family updated on plan of care and expected duration. Pain level reassessed. Patient is alert, oriented x 3, equal unlabored respirations, skin warm/dry/pink. provider at bedside discussing results. 03:41 Reassessment: Patient appears in no apparent distress at this time. Patient and/or jd3 family updated on plan of care and expected duration. Pain level reassessed. Patient is alert, oriented x 3, equal unlabored respirations, skin warm/dry/pink. reported understanding of discharge instructions, even and steady gait upon discharge. Vital Signs: 00:20 BP 125 / 85; Pulse 84; Resp 16; Temp 97.4; Pulse Ox 96% on R/A; Weight 72.57 kg (R); ak1 Height 4 ft. 9 in. (144.78 cm); Pain 10/10; 01:13 BP 122 / 80; Pulse 75; Resp 17 S; Pulse Ox 100% on R/A; jd3 02:19 BP 123 / 87; Pulse 87; Resp 16 S; Pulse Ox 97% on R/A; jd3 03:24 BP 111 / 74; Pulse 76; Resp 16 S; Pulse Ox 97% on R/A; jd3 00:20 Body Mass Index 34.62 (72.57 kg, 144.78 cm) ak1 ED Course: 00:03 Patient arrived in ED. es 00:06 Kenneth Blackwell MD is Attending Physician. tw4 00:21 Triage completed. ak1 00:22 Arm band placed on Patient placed in an exam room, on a stretcher, Patient notified of ak1 wait time. 00:24 Jef Thompson, ANASTASIA is Primary Nurse. jd3 00:43 Patient has correct armband on for positive identification. Bed in low position. Call jd3 light in reach. Side rails up X 1. Adult w/ patient. 00:57 Inserted saline lock: 22 gauge in right forearm, using aseptic technique. Blood jd3 collected. 02:28 CT Abd/Pelvis - IV Contrast Only In Process Unspecified. EDMS 03:35 Dannie Hughes MD is Referral Physician. tw4 03:35 Armando Santiago MD is Referral Physician. tw4 03:41 No provider procedures requiring assistance completed. IV discontinued, intact, jd3 bleeding controlled, No redness/swelling at site. Pressure dressing applied. Administered Medications: 00:44 Drug: GI Cocktail without - (Maalox Suspension 30 ml, Lidocaine Liquid 2 % 15 jd3 ml) Route: PO; 01:40 Follow up: Response: No adverse reaction jd3 00:57 Drug: NS 0.9% 1000 ml Route: IV; Rate: 1 bolus; Site: right forearm; jd3 02:30 Follow up: Response: No adverse reaction; IV Status: Completed infusion; IV Intake: jd3 1000ml 02:03 Not Given (Patient Refused): morphine 2 mg IVP once jd3 02:03 Drug: Zofran 4 mg Route: IVP; Site: right forearm; jd3 03:00 Follow up: Response: No adverse reaction jd3 Intake: 02:30 IV: 1000ml; Total: 1000ml. jd3 Outcome: 03:34 Discharge ordered by . tw4 03:42 Discharged to home ambulatory, with family. jd3 03:42 Condition: stable 03:42 Discharge instructions given to patient, family, Instructed on discharge instructions, follow up and referral plans. medication usage, Demonstrated understanding of instructions, follow-up care, medications, Prescriptions given X 1. 03:42 Patient left the ED. jd3 Signatures: Dispatcher [employer] Stefanie Ramos Amber RN RN ak1 Jef Thompson RN RN jd3 Kenneth Blackwell MD MD tw4
--- NOTE | 2019-01-15 03:36 | EDPHYS ---
Physician Documentation [facility] Name: Shania Martino Age: 23 yrs Sex: Female : 1995 Arrival Date: 01/15/2019 Time: 00:03 Bed 2 Private MD: ED Physician Kenneth Blackwell HPI: 01/15 03:36 This 23 yrs old Female presents to ER via Ambulatory with complaints of tw4 Abdominal Pain. 03:36 The patient presents with abdominal pain. The symptoms do not radiate. Associated signs tw4 and symptoms: none. The symptoms are described as dull. Modifying factors: The symptoms are alleviated by nothing, the symptoms are aggravated by nothing. Severity of pain: At its worst the pain was moderate in the emergency department the pain is unchanged. The patient has not experienced similar symptoms in the past. 03:37 Onset: The symptoms/episode began/occurred 3 month(s) ago, and became worse 2 week(s) tw4 ago. 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 - Social history:: Smoking status: Patient uses tobacco products, smokes one-half pack cigarettes per day. - Ebola Screening: : No symptoms or risks identified at this time. ROS: 03:36 Constitutional: Negative for fever, chills, and weight loss, Eyes: Negative for injury, tw4 pain, redness, and discharge, Cardiovascular: Negative for chest pain, palpitations, and edema, Respiratory: Negative for shortness of breath, cough, wheezing, and pleuritic chest pain, MS/Extremity: Negative for injury and deformity, Skin: Negative for injury, rash, and discoloration, Neuro: Negative for headache, weakness, numbness, tingling, and seizure. 03:36 Abdomen/GI: Positive for abdominal pain, Negative for nausea and vomiting, nausea, vomiting, and diarrhea, nausea, vomiting, diarrhea, dysphagia, hematemesis, black/tarry stool, rectal pain. Exam: 03:38 Constitutional: This is a well developed, well nourished patient who is awake, alert, tw4 and in no acute distress. Head/Face: Normocephalic, atraumatic. Chest/axilla: Normal chest wall appearance and motion. Nontender with no deformity. No lesions are appreciated. Cardiovascular: Regular rate and rhythm with a normal S1 and S2. No gallops, murmurs, or rubs. Normal PMI, no JVD. No pulse deficits. Respiratory: Lungs have equal breath sounds bilaterally, clear to auscultation and percussion. No rales, rhonchi or wheezes noted. No increased work of breathing, no retractions or nasal flaring. Back: No spinal tenderness. No costovertebral tenderness. Full range of motion. MS/ Extremity: Pulses equal, no cyanosis. Neurovascular intact. Full, normal range of motion. Neuro: Awake and alert, GCS 15, oriented to person, place, time, and situation. Cranial nerves II-XII grossly intact. Motor strength 5/5 in all extremities. Sensory grossly intact. Cerebellar exam normal. Normal gait. 03:38 Abdomen/GI: Inspection: abdomen appears normal, Bowel sounds: diminished, Palpation: mild abdominal tenderness, in the epigastric area. Vital Signs: 00:20 BP 125 / 85; Pulse 84; Resp 16; Temp 97.4; Pulse Ox 96% on R/A; Weight 72.57 kg (R); ak1 Height 4 ft. 9 in. (144.78 cm); Pain 10/10; 01:13 BP 122 / 80; Pulse 75; Resp 17 S; Pulse Ox 100% on R/A; jd3 02:19 BP 123 / 87; Pulse 87; Resp 16 S; Pulse Ox 97% on R/A; jd3 03:24 BP 111 / 74; Pulse 76; Resp 16 S; Pulse Ox 97% on R/A; jd3 00:20 Body Mass Index 34.62 (72.57 kg, 144.78 cm) ak1 MDM: 00:12 Patient medically screened. tw4 03:38 Differential diagnosis: Cholelithiasis, gastritis, gastroesophageal reflux disease, GI tw4 Bleed. Data reviewed: vital signs, nurses notes. Counseling: I had a detailed discussion with the patient and/or guardian regarding: the historical points, exam findings, and any diagnostic results supporting the discharge/admit diagnosis, lab results, radiology results. Medication response: GI Cocktail partially relieved the patient's pain. Response to treatment: the patient's symptoms have mildly improved after treatment, and as a result, I will discharge patient. Special discussion: Based on the patient's Hx, exam, and Dx evaluation, there is no indication for emergent surgery or inpatient Tx. It is understood by the patient/guardian that if the Sx's persist or worsen they need to return immediately for re-evaluation. I discussed with the patient/guardian in detail that at this point there is no indication for admission to the hospital. It is understood, however, that if the symptoms persist or worsen the patient needs to return immediately for re-evaluation. ED course: Pt 's Ct revealed GB wall thickening no evidence of cholelithiasis. Pt's LFT's were normal making cholecystitis less likely. 01/15 00:06 Order name: Basic Metabolic Panel; Complete Time: 02:43 01/15 02:43 Interpretation: Normal except: CL 108; GLUC 144; GFR 85. 01/15 00:06 Order name: CBC with Diff; Complete Time: 02:43 01/15 02:43 Interpretation: Normal except: WBC 13.3. 01/15 00:06 Order name: Creatinine for Radiology; Complete Time: 02:43 01/15 02:43 Interpretation: Within normal limits: CRE 0.85. 01/15 00:06 Order name: Hepatic Function; Complete Time: 02:43 01/15 02:43 Interpretation: Normal except: ALK 119. 01/15 00:06 Order name: Lipase; Complete Time: 02:43 01/15 02:43 Interpretation: Within normal limits: LIP 190. 01/15 02:50 Order name: Urine Dipstick--Ancillary (enter results); Complete Time: 03:34 ny5 01/15 00:06 Order name: IV Saline Lock; Complete Time: 00:57 01/15 00:06 Order name: Labs collected and sent; Complete Time: 00:57 01/15 01:53 Order name: CT Abd/Pelvis - IV Contrast Only tw4 01/15 02:50 Order name: Urine --Ancillary (enter results); Complete Time: 03:34 ar5 01/15 00:06 Order name: Urine Dipstick-Ancillary (obtain specimen); Complete Time: 01:39 tw4 Administered Medications: 00:44 Drug: GI Cocktail without - (Maalox Suspension 30 ml, Lidocaine Liquid 2 % 15 jd3 ml) Route: PO; 01:40 Follow up: Response: No adverse reaction jd3 00:57 Drug: NS 0.9% 1000 ml Route: IV; Rate: 1 bolus; Site: right forearm; jd3 02:30 Follow up: Response: No adverse reaction; IV Status: Completed infusion; IV Intake: jd3 1000ml 02:03 Not Given (Patient Refused): morphine 2 mg IVP once jd3 02:03 Drug: Zofran 4 mg Route: IVP; Site: right forearm; jd3 03:00 Follow up: Response: No adverse reaction jd3 Disposition: 01/15/19 03:34 Discharged to Home. Impression: Biliary colic. - Condition is Stable. - Discharge Instructions: Biliary Colic, Adult. - Prescriptions for Tramadol 50 mg Oral Tablet - take 1 tablet by ORAL route every 8 hours as needed; 12 tablet. - Medication Reconciliation Form, Thank You Letter, Antibiotic Education, Prescription Opioid Use form. - Follow up: Private Physician; When: Upon discharge from the Emergency Department; Reason: If symptoms return, Recheck today's complaints, Continuance of care. Follow up: Dannie Hughes MD; When: Tomorrow; Reason: If symptoms return, Recheck today's complaints, Continuance of care. Follow up: Armando Santiago MD; When: Tomorrow; Reason: If symptoms return, Recheck today's complaints, Continuance of care. - Problem is new. - Symptoms have improved. Signatures: Dispatcher [employer] Nichole Machado RN RN ak1 Jef Thompson RN RN jd3 Kenneth Blackwell MD MD tw4 Corrections: (The following items were deleted from the chart) 03:36 03:34 01/15/2019 03:34 Discharged to Home. Impression: Biliary colic. Condition is tw4 Stable. Forms are Medication Reconciliation Form, Thank You Letter, Antibiotic Education, Prescription Opioid Use. Follow up: Private Physician; When: Upon discharge from the Emergency Department; Reason: If symptoms return, Recheck today's complaints, Continuance of care. Problem is new. Symptoms have improved. tw4 03:38 03:36 Onset: The symptoms/episode began/occurred today, tw4 tw4 03:42 03:36 01/15/2019 03:34 Discharged to Home. Impression: Biliary colic. Condition is jd3 Stable. Discharge Instructions: Biliary Colic, Adult. Prescriptions for Tramadol 50 mg Oral Tablet - take 1 tablet by ORAL route every 8 hours as needed; 12 tablet. and Forms are Medication Reconciliation Form, Thank You Letter, Antibiotic Education, Prescription Opioid Use. Follow up: Private Physician; When: Upon discharge from the Emergency Department; Reason: If symptoms return, Recheck today's complaints, Continuance of care. Follow up: Dannie Hughes; When: Tomorrow; Reason: If symptoms return, Recheck today's complaints, Continuance of care. Follow up: Armando Santiago; When: Tomorrow; Reason: If symptoms return, Recheck today's complaints, Continuance of care. Problem is new. Symptoms have improved. tw4
[2019-01-15 04:01] VITALS: TEMP 97.4
[2019-01-15 04:04] VITALS: O2SAT 97
[2019-01-15 04:05] VITALS: BP 111/74
--- NOTE | 2019-01-15 10:35 | RAD REPORT ---
EXAM DESCRIPTION: Abdomen Pelvis W Contrast CLINICAL HISTORY: ABD PAIN COMPARISON: None. TECHNIQUE: CT ABDOMEN PELVIS WITH IV CONTRAST on 01/15/2019 1:53 AM CDT This exam was performed according to our departmental dose-optimization program, which includes autom ated exposure control, adjustment of the mA and/or kV according to patient size and/or use of iterati ve reconstruction technique. FINDINGS: Lower lungs are clear. Abdomen: The liver is normal in appearance. There is no biliary dilatation. Gallbladder is mildly dis tended with wall thickening measuring up to 4 mm. The pancreas and spleen are normal in appearance. T he adrenal glands and kidneys are unremarkable. Abdominal aorta is normal in course and caliber without aneurysm. There is no free air. There is no r etroperitoneal adenopathy. Pelvis: There is no bowel obstruction. Urinary bladder is unremarkable. There is no free fluid. Appen álavro is normal uterus is normal in size. Skeleton: There are no acute osseous findings. No suspicious bony lesions. IMPRESSION: Mild gallbladder wall thickening. Early cholecystitis is not excluded. Electronically signed by: Dutch Noel MD 01/15/2019 2:32 AM CDT Due to temporary technical issues with the PACS/Fluency reporting system, reports are being signed by the in house radiologist as a courtesy to ensure prompt reporting. The interpreting radiologist is f ully responsible for the content of the report.
== END 2019-01-15 03:42 | disposition home or self-care (01) ==
LOC: ER 23:59
DX: K80.50 Calculus of bile duct without cholangitis or cholecystitis without obstruction (principal); E11.9 Type 2 diabetes mellitus without complications; F17.210 Nicotine dependence, cigarettes, uncomplicated; Z79.4 Long term (current) use of insulin; Z88.0 Allergy status to penicillin
CPT/HCPCS: 36415; 74177; 80048; 80076; 81003; 81025; 83690; 85025; 96361; 96374; 99284; J2270; J2405; J7030; Q9967

== ENCOUNTER 2019-04-03 22:06 | Emergency (ER) | payer OTHER, SELFPAY ==
[2019-04-03] MEDS ORDERED: SMZ./TMP. 800/160 MG TABLET ONE (22:44)
--- NOTE | 2019-04-03 22:46 | ER ---
Nurse's Notes [facility] Name: Shania Martino Age: 24 yrs Sex: Female : 1995 Arrival Date: 04/03/2019 Time: 22:08 Bed 17 Private MD: Diagnosis: Cutaneous abscess of buttock Presentation: 04/03 22:11 Presenting complaint: Patient states: i think a spider bit me on my right buttocks, I rv noticed it yesterday. we tried to pop it. today it got bigger and feels warm. Transition of care: patient was not received from another setting of care. Onset of symptoms was April 02, 2019 at 08:00. Risk Assessment: Do you want to hurt yourself or someone else? Patient reports no desire to harm self or others. Initial Sepsis Screen: Does the patient meet any 2 criteria? No. Patient's initial sepsis screen is negative. Does the patient have a suspected source of infection? No. Patient's initial sepsis screen is negative. Care prior to arrival: None. 22:11 Method Of Arrival: Ambulatory rv 22:11 Acuity: NEGRO 5 rv Triage Assessment: 22:19 Bite description: bite sustained to right gluteus bharathi is superficial, from insect rv by spider?, animal information: vaccination(s) is not applicable. General: Appears in no apparent distress. comfortable, Behavior is calm, cooperative. Pain: Complains of pain in right gluteus bharathi. EENT: No signs and/or symptoms were reported regarding the EENT system. Neuro: Level of Consciousness is awake, alert, obeys commands, Oriented to person, place, time, situation. Cardiovascular: Patient's skin is warm and dry. Respiratory: Airway is patent. GI: No signs and/or symptoms were reported involving the gastrointestinal system. : No signs and/or symptoms were reported regarding the genitourinary system. Derm: Rash noted that is red, on right gluteus bharathi. Musculoskeletal: No signs and/or symptoms reported regarding the musculoskeletal system. 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 - Social history:: Smoking status: Patient uses tobacco products, smokes one-half pack cigarettes per day. - Ebola Screening: : No symptoms or risks identified at this time. Screenin:21 Abuse screen: Denies threats or abuse. Denies injuries from another. Nutritional rv screening: No deficits noted. Tuberculosis screening: No symptoms or risk factors identified. Fall Risk None identified. Assessment: 22:21 Derm: Skin. rv 22:26 General: Appears in no apparent distress. Pain: Complains of pain in right gluteus wh bharathi Pain radiates to right leg Pain currently is 6 out of 10 on a pain scale. Quality of pain is described as aching, Pain began 1 day ago. Neuro: Level of Consciousness is awake, alert, obeys commands. Cardiovascular: Capillary refill < 3 seconds. Respiratory: Airway is patent Respiratory effort is even, unlabored, Respiratory pattern is regular, symmetrical. GI: Abdomen is round non-distended. : No signs and/or symptoms were reported regarding the genitourinary system. EENT: No signs and/or symptoms were reported regarding the EENT system. Derm: Skin is intact, is healthy with good turgor, Skin is pink, warm \T\ dry. normal, Rash noted that is on right gluteus bharathi. Musculoskeletal: Circulation, motion, and sensation intact. Vital Signs: 22:15 BP 125 / 77; Pulse 104; Resp 17; Temp 98.2(O); Pulse Ox 97% on R/A; Weight 72.57 kg; rv Height 4 ft. 9 in. (144.78 cm); 22:15 Body Mass Index 34.62 (72.57 kg, 144.78 cm) rv ED Course: 22:08 Patient arrived in ED. cl3 22:11 Pete Jansen, ANASTASIA is Primary Nurse. rv 22:13 Triage completed. rv 22:21 Patient has correct armband on for positive identification. Bed in low position. Call rv light in reach. Side rails up X 1. Pulse ox on. NIBP on. 22:21 Patient placed in the treatment room, on a stretcher, on pulse oximetry, Patient rv notified of wait time. 22:22 Lauren George [facility]-C [facility]. 22:22 Eduin Coreas MD is Attending Physician. 22:49 No provider procedures requiring assistance completed. Patient did not have IV access during this emergency room visit. Administered Medications: :45 Drug: Bactrim (160 mg-800 mg (DS) 1 tablet Route: PO; 22:50 Follow up: Response: No adverse reaction Outcome: :45 Discharge ordered by . kb 22:49 Discharged to home ambulatory, with friend. 22:49 Condition: good 22:49 Discharge instructions given to patient, Instructed on discharge instructions, follow up and referral plans. medication usage, POC Skin Abscess Demonstrated understanding of instructions, follow-up care, medications, POC Prescriptions given X 1. 22:50 Patient left the ED. Signatures: Lauren George FNP-C FNP-Mikayla Calhoun Pete Jansen, RN RN Lito Gore cl3
--- NOTE | 2019-04-03 22:46 | EDPHYS ---
Physician Documentation [facility] Name: Shania Martino Age: 24 yrs Sex: Female : 1995 Arrival Date: 04/03/2019 Time: 22:08 Bed 17 Private MD: ED Physician Eduin Coreas HPI: 04/03 22:42 This 24 yrs old Female presents to ER via Ambulatory with complaints of kb Insect Bite. 22:42 The patient presents with an abscess of the right gluteus bharathi. Description: kb erythematous. Onset: The symptoms/episode began/occurred yesterday. Possible cause(s): spider bite. Associated signs and symptoms: Pertinent positives: erythema, swelling. Modifying factors: the symptoms are alleviated by nothing, the symptoms are aggravated by touching. Severity of symptoms: At their worst the symptoms were mild, in the emergency department the symptoms are unchanged. The patient has not experienced similar symptoms in the past. The patient has not recently seen a physician. 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 - Social history:: Smoking status: Patient uses tobacco products, smokes one-half pack cigarettes per day. - Ebola Screening: : No symptoms or risks identified at this time. ROS: 22:40 Constitutional: Negative for fever, chills, and weight loss, Neck: Negative for injury, kb pain, and swelling, Cardiovascular: Negative for chest pain, palpitations, and edema, Respiratory: Negative for shortness of breath, cough, wheezing, and pleuritic chest pain, Abdomen/GI: Negative for abdominal pain, nausea, vomiting, diarrhea, and constipation, Back: Negative for injury and pain, MS/Extremity: Negative for injury and deformity, Neuro: Negative for headache, weakness, numbness, tingling, and seizure. 22:40 Skin: Positive for abscess, of the right gluteus bharathi. Exam: 22:41 Constitutional: This is a well developed, well nourished patient who is awake, alert, kb and in no acute distress. Head/Face: Normocephalic, atraumatic. Neck: Trachea midline, no thyromegaly or masses palpated, and no cervical lymphadenopathy. Supple, full range of motion without nuchal rigidity, or vertebral point tenderness. No Meningismus. Chest/axilla: Normal chest wall appearance and motion. Nontender with no deformity. No lesions are appreciated. Cardiovascular: Regular rate and rhythm with a normal S1 and S2. No gallops, murmurs, or rubs. Normal PMI, no JVD. No pulse deficits. Respiratory: Lungs have equal breath sounds bilaterally, clear to auscultation and percussion. No rales, rhonchi or wheezes noted. No increased work of breathing, no retractions or nasal flaring. Abdomen/GI: Soft, non-tender, with normal bowel sounds. No distension or tympany. No guarding or rebound. No evidence of tenderness throughout. MS/ Extremity: Pulses equal, no cyanosis. Neurovascular intact. Full, normal range of motion. Neuro: Awake and alert, GCS 15, oriented to person, place, time, and situation. Cranial nerves II-XII grossly intact. Motor strength 5/5 in all extremities. Sensory grossly intact. Cerebellar exam normal. Normal gait. 22:41 Skin: abscess, that is small, of the right gluteus bharathi, with induration. Vital Signs: 22:15 BP 125 / 77; Pulse 104; Resp 17; Temp 98.2(O); Pulse Ox 97% on R/A; Weight 72.57 kg; rv Height 4 ft. 9 in. (144.78 cm); 22:15 Body Mass Index 34.62 (72.57 kg, 144.78 cm) rv MDM: 22:22 Patient medically screened. kb 22:40 Data reviewed: vital signs, nurses notes. Data interpreted: Pulse oximetry: on room air kb is 97 %. Interpretation: normal. Counseling: I had a detailed discussion with the patient and/or guardian regarding: the historical points, exam findings, and any diagnostic results supporting the discharge/admit diagnosis, the need for outpatient follow up, a family practitioner, to return to the emergency department if symptoms worsen or persist or if there are any questions or concerns that arise at home. Administered Medications: 22:45 Drug: Bactrim (160 mg-800 mg (DS) 1 tablet Route: PO; 22:50 Follow up: Response: No adverse reaction Disposition: 04/04 07:11 Co-signature as Attending Physician, Eduin Coreas MD Available for consultation at ps1 all times . Disposition: 04/03/19 22:45 Discharged to Home. Impression: Cutaneous abscess of buttock. - Condition is Stable. - Discharge Instructions: Skin Abscess, Ekff-vs-Vgaw. - Prescriptions for Bactrim DS 800- 160 mg Oral Tablet - take 1 tablet by ORAL route every 12 hours for 10 days; 20 tablet. - Medication Reconciliation Form, Thank You Letter, Antibiotic Education, Prescription Opioid Use form. - Follow up: Emergency Department; When: As needed; Reason: Worsening of condition. Follow up: Private Physician; When: 2 - 3 days; Reason: Recheck today's complaints, Continuance of care, Re-evaluation by your physician. Signatures: Lauren George, CROP OR [employer]IVESTOCK TENANT FARMER-C CROP OR LIVESTOCK TENANT FARMER-Mikayla Calhoun Eduin Coreas MD MD ps1 Pete Jansen, RN RN rv Corrections: (The following items were deleted from the chart) 04/03 22:50 22:45 04/03/2019 22:45 Discharged to Home. Impression: Cutaneous abscess of buttock. Condition is Stable. Forms are Medication Reconciliation Form, Thank You Letter, Antibiotic Education, Prescription Opioid Use. Follow up: Emergency Department; When: As needed; Reason: Worsening of condition. Follow up: Private Physician; When: 2 - 3 days; Reason: Recheck today's complaints, Continuance of care, Re-evaluation by your physician. kb
[2019-04-03 23:08] VITALS: BP 125/77; TEMP 98.2; O2SAT 97
== END 2019-04-03 22:50 | disposition home or self-care (01) ==
LOC: ER 22:06
DX: L02.31 Cutaneous abscess of buttock (principal); F41.8 Other specified anxiety disorders; Z88.0 Allergy status to penicillin
CPT/HCPCS: 99283

== ENCOUNTER 2020-11-20 17:00 | Emergency (ER) | payer SELFPAY ==
--- OUTSIDE RECORDS SUMMARY | 2020-11-20 17:04 | XMS REPORT | Continuity of Care Document ---
:1995 Author Organization [facility] t Address [address] [place] [address] Care Team Providers Name Role Phone Unavailable Unavailable Unavailable Payers Payer Name Policy Type Policy Number Effective Date Expiration Date S ource Problems This patient has no known problems. Allergies, Adverse Reactions, Alerts Allergy Allergy Status Severity Reaction(s) Onset Inactive Treating Comm ents Source Name Type Date Date Clinician Penicill DA Active [facility] ins 02-18 [place] 00:00: [facility] 00 are [facility] Medications This patient has no known medications. Procedures This patient has no known procedures. Results Test Description Test Time Test Comments Results Result [facility] e Comments SURGICAL SPECIMENS 2019-02-27 15:48:00 --------RUN DATE: 02/27/19 [facility] - LAB PAGE 1 RUN TIME: 1549 Specimen Inquiry RUN USER: INTERFACE --------[facility] [id number] LOC: [id number] U #: [id number] AGE/SX: 24/F ROOM: [facility] RE02/18/19REG DR: Prakash Hogan MD : 95 BED: 1 DIS: 02/22/19 STATUS: DIS IN TLOC: -------- SPEC #: [id number] RECD: 02/20/19-161 STATUS: KDEnio [facility] #: [id number] KEITH: 02/20/19-[address]: Prakash Hogan MD ENTERED: 02/20/19-1715 SP TYPE: SURG OTHR DR: No Primary or Family Physician Self Referred Leoncio Franks MD,Kojo Caraballo MD, MDORDERED: PATHGM3, PATH SPEC, H E STAIN TISSUES: A. GALLBLADDER - Gallbladder CLINICAL HISTORY Diagnosis/Clinical Data: Cholelithiasis Operative Procedure: Lap anahi with loc FINAL DIAGNOSIS Gallbladder, cholecystectomy: Cholelithiasis Chronic cholecystitis with focal areas with prominent numbers of eosinophils Electronically signed by: Dakota Lucas MD GROSS DESCRIPTION Received in formalin labeled "gallbladder" is a 7.3 x 3.5 x 2 cm intact gallbladder with a patent cystic duct. The serosa is lavender-pink and smooth. A cystic duct lymph node is not present. The specimen is opened to reveal green viscous bile and 3 douglas yellow, irregular choleliths ranging 0.4-0.5 cm. The mucosa is andersen-green and velvety . The wall thickness ranges 0.1-0.2 cm. no gross lesions are identified. Optical Design Engineer sections are submitted in cassettes as follows, A1 - Cystic duct margin en face in gallbladder wall CG 02/20/2019 10:58 PM MICROSCOPIC DESCRIPTION The epithelium appears somewhat autolyzed. That which remains shows no atypia. The wall itself is thickened. Areas of fibrosis are noted. Focally prominent numbers of eosinophils are seen. Scattered lymphocytes and plasma cells are found as well. CONTINUED ON NEXT PAGE --------RUN DATE: 02/27/19 [facility] - LAB PAGE 2 RUN TIME: 1549 Specimen Inquiry RUN USER: INTERFACE --------SPEC #: [id number] PATIENT: FAISAL ROJAS #[id number] (Continued) -------- Signed SIGNATURE ON FILE Dakota Lucas MD 02/27/19 1548 -------- END OF REPORT GLUBED 2019-02-22 07:43:00 Test Item Value Reference Range Interpretation Comme nts GLUBED (test code = GLUBED) 93 MG/DL 70-105 N [id number] 21:01:00 Test Item Value Reference Range Interpretation Comments GLUBED (test code = GLUBED) 90 MG/DL 70-105 N [id number] 16:52:00 Test Item Value Reference Range Interpretation Comments GLUBED (test code = GLUBED) 149 MG/DL 70-105 H [id number] 11:10:00 Test Item Value Reference Range Interpretation Comments GLUBED (test code = GLUBED) 90 MG/DL 70-105 N [id number] 08:08:00 Test Item Value Reference Range Interpretation Comments GLUBED (test code = GLUBED) 116 MG/DL 70-105 H COMPREHENSIVE METABOLIC [id number] 05:44:00 Test Item Value Reference Range Interpretation Comments SODIUM (test code = 139 mmol/L 135-145 N NA) POTASSIUM (test 4.0 mmol/L 3.6-5.0 N code = K) CHLORIDE (test code 105 mmol/L 101-111 N = CL) CARBON DIOXIDE 25 mmol/L 21-31 N (test code = CO2) GLUCOSE (test code 117 mg/dl 70-100 H = GLU) BLOOD UREA NITROGEN < 5 mg/dl 6-20 L (test code = BUN) GLOMERULAR >=60 max >60 The estimated FILTRATION RATE estimate glomerular (test code = GFR) filtration rate is computed usingpatient ra ce, age (>18), sex, and serum creatinin e. If anyof the ne eded data elements a re missing the Laboratory vishnu ot compute an estimation of t he glomerular filtration rate . CREATININE (test 0.64 mg/dL 0.44-1.03 N code = CREAT) TOTAL PROTEIN (test 5.8 g/dL 6.7-8.2 L code = PROT) ALBUMIN (test code 3.4 g/dL 3.2-5.5 N = ALB) CALCIUM (test code 8.5 mg/dL 8.5-10.5 N = CA) BILIRUBIN TOTAL 1.90 mg/dL 0.2-1.3 H (test code = BILT) SGOT/AST (test code 125 U/L 10-42 H = AST) SGPT/ALT (test code 593 U/L 10-60 H = ALT) ALKALINE 271 U/L 42-121 H PHOSPHATASE (test code = ALKP) CBC W/AUTO [id number] 05:03:00 Test Item Value Reference Range Interpretation Comments WHITE BLOOD CELL (test code = 10.5 x10 3/uL 3.2-11.5 N WBC) RED BLOOD CELL (test code = 4.34 x10(6)/m 3.70-5.10 N RBC) HEMOGLOBIN (test code = HGB) 13.1 g/dL 12.0-15.0 N HEMATOCRIT (test code = HCT) 38.9 % 35.7-44.8 N MEAN CELL VOLUME (test code = 90 fL 80-100 N MCV) MEAN CELL HGB (test code = MCH) 30.2 pg 26.2-33.8 N MEAN CELL HGB CONCENTRATION 33.7 g/dL 30.0-34.0 N (test code = MCHC) RED CELL DISTRIBUTION WIDTH 13.4 % 11.3-14.5 N (test code = RDW) PLATELET COUNT (test code = 295 x10 3/uL 130-408 N PLT) MEAN PLATELET VOLUME (test code 8.5 fl 6.4-10.5 N = MPV) NEUTROPHIL % (test code = NT%) 71.6 % 40.0-70.0 H LYMPHOCYTE % (test code = LY%) 19.2 % 20-40 L MONOCYTE % (test code = MO%) 6.4 % 1-10 N EOSINOPHIL % (test code = EO%) 2.4 % 1.0-5.0 N BASOPHIL % (test code = BA%) 0.4 % 0.0-1.0 N NEUTROPHIL # (test code = NT#) 7.5 x10 3/uL 1.6-7.2 H LYMPHOCYTE # (test code = LY#) 2.00 x10 3/uL 1.1-2.7 N MONOCYTE # (test code = MO#) 0.7 x10 3/uL 0.3-0.8 N EOSINOPHIL # (test code = EO#) 0.3 x10 3/uL 0.0-0.5 N BASOPHIL # (test code = BA#) 0.0 x10 3/uL 0.0-0.1 N [id number] 20:11:00 Test Item Value Reference Range Interpretation Comments GLUBED (test code = GLUBED) 188 MG/DL 70-105 H COMPREHENSIVE METABOLIC [id number] 18:14:00 Test Item Value Reference Range Interpretation Comments SODIUM (test code = 138 mmol/L 135-145 N NA) POTASSIUM (test 3.8 mmol/L 3.6-5.0 N code = K) CHLORIDE (test code 104 mmol/L 101-111 N = CL) CARBON DIOXIDE 25 mmol/L 21-31 N (test code = CO2) GLUCOSE (test code 139 mg/dl 70-100 H = GLU) BLOOD UREA NITROGEN < 5 mg/dl 6-20 L (test code = BUN) GLOMERULAR >=60 max >60 The estimated FILTRATION RATE estimate glomerular (test code = GFR) filtration rate is computed usingpatient ra ce, age (>18), sex, and serum creatinin e. If anyof the ne eded data elements a re missing the Laboratory vishnu ot compute an estimation of t he glomerular filtration rate . CREATININE (test 0.72 mg/dL 0.44-1.03 N code = CREAT) TOTAL PROTEIN (test 6.6 g/dL 6.7-8.2 L code = PROT) ALBUMIN (test code 3.6 g/dL 3.2-5.5 N = ALB) CALCIUM (test code 8.3 mg/dL 8.5-10.5 L = CA) BILIRUBIN TOTAL 3.20 mg/dL 0.2-1.3 H (test code = BILT) SGOT/AST (test code 240 U/L 10-42 H = AST) SGPT/ALT (test code 749 U/L 10-60 H = ALT) ALKALINE 292 U/L 42-121 H PHOSPHATASE (test code = ALKP) [id number] 15:38:00 Test Item Value Reference Range Interpretation Comments GLUBED (test code = GLUBED) 167 MG/DL 70-105 H [id number] 13:06:00 Test Item Value Reference Range Interpretation Comments GLUBED (test code = GLUBED) 127 MG/DL 70-105 H [id number] 11:08:00 Test Item Value Reference Range Interpretation Comments GLUBED (test code = GLUBED) 139 MG/DL 70-105 H [id number] 08:23:00 Test Item Value Reference Range Interpretation Comments GLUBED (test code = GLUBED) 121 MG/DL 70-105 H ACUTE HEPATITIS [id number] 08:07:00 Test Item Value Reference Range Interpretation Comments AB HEPATITIS A IGM (test code = NEGATIVE NEGATIVE HAVMAB) AG HEPATITIS B SURFACE (test code = NEGATIVE NEGATIVE HBSAG) AB HEPATITIS B CORE IGM (test code = NEGATIVE NEGATIVE HBCMAB) AB HEPATITIS C (test code = HCVAB) NEGATIVE NEGATIVE [id number] 06:58:00 Test Item Value Reference Range Interpretation Comments AMYLASE (test code = CLIFFORD) 619 U/L 25-125 H [id number] 06:58:00 Test Item Value Reference Range Interpretation Comments LIPASE (test code = LIP) 851 IU/L 22-51 H [id number] 06:34:00 Test Item Value Reference Range Interpretation Comments AMYLASE (test code = CLIFFORD) 619 U/L 25-125 H [id number] 06:34:00 Test Item Value Reference Range Interpretation Comments LIPASE (test code = LIP) IU/L 22-51 COMPREHENSIVE METABOLIC [id number] 06:34:00 Test Item Value Reference Range Interpretation Comments SODIUM (test code = 136 mmol/L 135-145 N NA) POTASSIUM (test 3.7 mmol/L 3.6-5.0 N code = K) CHLORIDE (test code 103 mmol/L 101-111 N = CL) CARBON DIOXIDE 21 mmol/L 21-31 N (test code = CO2) GLUCOSE (test code 168 mg/dl 70-100 H = GLU) BLOOD UREA NITROGEN < 5 mg/dl 6-20 L (test code = BUN) GLOMERULAR >=60 max >60 The estimated FILTRATION RATE estimate glomerular (test code = GFR) filtration rate is computed usingpatient ra ce, age (>18), sex, and serum creatinin e. If anyof the ne eded data elements a re missing the Laboratory vishnu ot compute an estimation of t he glomerular filtration rate . CREATININE (test 0.65 mg/dL 0.44-1.03 N code = CREAT) TOTAL PROTEIN (test 6.9 g/dL 6.7-8.2 N code = PROT) ALBUMIN (test code 3.9 g/dL 3.2-5.5 N = ALB) CALCIUM (test code 8.8 mg/dL 8.5-10.5 N = CA) BILIRUBIN TOTAL 4.40 mg/dL 0.2-1.3 H (test code = BILT) SGOT/AST (test code 261 U/L 10-42 H = AST) SGPT/ALT (test code 869 U/L 10-60 H = ALT) ALKALINE 284 U/L 42-121 H PHOSPHATASE (test code = ALKP) PROTHROMBIN [id number] 06:31:00 Test Item Value Reference Range Interpretation Comments PROTHROMBIN TIME 13.7 SECONDS 9.6-13.0 H PATIENT (test code = PTP) INTERNATIONAL NORMAL 1.2 The INR is to be RATIO (test code = used only for INR) monitoring oral anticoagulantth erap y. INDICATION IN R VALUE ---- ---- ---- --------1. Prophylaxis, de ep venous thrombos is, 2.0 - 2.5 including high-risk surgery.2. Prophylaxis, de ep venous thrombos is, 2.0 - 3.0 hip surgery, treatment for d eep venous thromb osis or pulmonary prevention of systemic emboli sm in patients wit h valvular heart disease, atrial fibrillation, tissue heart va lve, or acute myocar dial infarction.3. Mechanical prosthesis hear t valves, 3.0 - 4.5 recurrent syste maury embolism. THROMBOPLASTIN TIME [id number] 06:31:00 Test Item Value Reference Range Interpretation Comments THROMBOPLASTIN TIME PARTIAL (test 35 SECONDS 25-37 N code = PTT) CBC W/AUTO [id number] 06:29:00 Test Item Value Reference Range Interpretation Comments WHITE BLOOD CELL (test code = 11.9 x10 3/uL 3.2-11.5 H WBC) RED BLOOD CELL (test code = 4.72 x10(6)/m 3.70-5.10 N RBC) HEMOGLOBIN (test code = HGB) 14.0 g/dL 12.0-15.0 N HEMATOCRIT (test code = HCT) 42.0 % 35.7-44.8 N MEAN CELL VOLUME (test code = 89 fL 80-100 N MCV) MEAN CELL HGB (test code = MCH) 29.8 pg 26.2-33.8 N MEAN CELL HGB CONCENTRATION 33.4 g/dL 30.0-34.0 N (test code = MCHC) RED CELL DISTRIBUTION WIDTH 13.4 % 11.3-14.5 N (test code = RDW) PLATELET COUNT (test code = 323 x10 3/uL 130-408 N PLT) MEAN PLATELET VOLUME (test code 8.7 fl 6.4-10.5 N = MPV) NEUTROPHIL % (test code = NT%) 83.8 % 40.0-70.0 H LYMPHOCYTE % (test code = LY%) 9.7 % 20-40 L MONOCYTE % (test code = MO%) 5.3 % 1-10 N EOSINOPHIL % (test code = EO%) 0.9 % 1.0-5.0 L BASOPHIL % (test code = BA%) 0.3 % 0.0-1.0 N NEUTROPHIL # (test code = NT#) 10.0 x10 3/uL 1.6-7.2 H LYMPHOCYTE # (test code = LY#) 1.20 x10 3/uL 1.1-2.7 N MONOCYTE # (test code = MO#) 0.6 x10 3/uL 0.3-0.8 N EOSINOPHIL # (test code = EO#) 0.1 x10 3/uL 0.0-0.5 N BASOPHIL # (test code = BA#) 0.0 x10 3/uL 0.0-0.1 N [id number] 20:25:00 Test Item Value Reference Range Interpretation Comments GLUBED (test code = GLUBED) 170 MG/DL 70-105 H [id number] 18:44:00 Test Item Value Reference Range Interpretation Comments GLUBED (test code = GLUBED) 152 MG/DL 70-105 H COMPREHENSIVE METABOLIC [id number] 15:29:00 Test Item Value Reference Range Interpretation Comments SODIUM (test code = 137 mmol/L 135-145 N NA) POTASSIUM (test 3.7 mmol/L 3.6-5.0 N code = K) CHLORIDE (test code 106 mmol/L 101-111 N = CL) CARBON DIOXIDE 25 mmol/L 21-31 N (test code = CO2) GLUCOSE (test code 123 mg/dl 70-100 H = GLU) BLOOD UREA NITROGEN 5 mg/dl 6-20 L (test code = BUN) GLOMERULAR >=60 max >60 The estimated FILTRATION RATE estimate glomerular (test code = GFR) filtration rate is computed usingpatient ra ce, age (>18), sex, and serum creatinin e. If anyof the ne eded data elements a re missing the Laboratory vishnu ot compute an estimation of t he glomerular filtration rate . CREATININE (test 0.63 mg/dL 0.44-1.03 N code = CREAT) TOTAL PROTEIN (test 6.6 g/dL 6.7-8.2 L code = PROT) ALBUMIN (test code 3.9 g/dL 3.2-5.5 N = ALB) CALCIUM (test code 8.9 mg/dL 8.5-10.5 N = CA) BILIRUBIN TOTAL 2.40 mg/dL 0.2-1.3 H (test code = BILT) SGOT/AST (test code 401 U/L 10-42 H = AST) SGPT/ALT (test code 1030 U/L 10-60 H = ALT) ALKALINE 256 U/L 42-121 H PHOSPHATASE (test code = ALKP) [id number] 12:38:00 Test Item Value Reference Range Interpretation Comments GLUBED (test code = GLUBED) 122 MG/DL 70-105 H HGBA1C - GLYCOSYLATED [id number] 11:51:00 Test Item Value Reference Range Interpretation Comments GLYCOSYLATED HEMOGLOBIN 6.3 % 4.0-6.0 H Inte rpretive Data: (HA1C) (test code = Caution should be GLYHGB) exercised when interpreting th e HgbA1c in patients wit h hemolytic anemi a, iron deficiency and when the total hemoglobi n is < 9g/dL, due to a decrease in ave rage age of red blood ce lls - MRI [id number] 11:17:00Patient Name: FAISAL ROJAS Unit No: [id number] EXAMS: CPT: [id number] MRI MRCP 46421 MRCP: HISTORY: Dilated common bile duct. COMPARISON: Ultrasound from February 18, 2019 TECHNIQUE: Multisequence multiplanar MR imaging of the abdomen without contrast. FINDINGS: The common bile duct is mildly dilated measuring 7 mm. Trace intrahepatic biliary dilatation. No bile duct stone or stricture seen. The re is no evidence of pancreas divisum. Pancreatic duct is not dilated. No focal pancreatic lesion identified. No focal hepatic lesion is seen by MRI. There is a small gallstone in the gallbladder. Adrenal glands, spleen, kidneys unremarkable. No evidence of bowel obstruction. No enlarged lymph nodes are seen. Aorta is normal in caliber. No free fluid or free air is noted. Visualized spine is normal in morphology. IMPRESSION: Dilated common bile duct with mild intrahepatic biliary dilatation. However, no bile duct stone or definite stricture is seen. This could be a obstruction at the ampullary level. at 1117 Reported and signed by: Azar Hines MD CC: Prakash Hogan MD Technologist: [facility] Dt/Tm: 02/19/2019 (1117) by:[email or web address] Orig Print D/T: S: 02/19/2019 (1120) BATCH NO: N/A Name: FAISAL ROJAS [facility] Phys: YASMIN. - Prakash Hogan [address] [facility] : 1995 Age:24 Sex: F [place], [place] [address] Loc: [id number] 1 Exam Date: 02/18/2019 Status: ADM IN PH: FAX:PAGE 1 Signed ReportCOMPREHENSIVE METABOLIC [id number] 08:30:00 Test Item Value Reference Range Interpretation Comments SODIUM (test code = 138 mmol/L 135-145 N NA) POTASSIUM (test 4.3 mmol/L 3.6-5.0 N code = K) CHLORIDE (test code 106 mmol/L 101-111 N = CL) CARBON DIOXIDE 24 mmol/L 21-31 N (test code = CO2) GLUCOSE (test code 154 mg/dl 70-100 H = GLU) BLOOD UREA NITROGEN 5 mg/dl 6-20 L (test code = BUN) GLOMERULAR >=60 max >60 The estimated FILTRATION RATE estimate glomerular (test code = GFR) filtration rate is computed usingpatient ra ce, age (>18), sex, and serum creatinin e. If anyof the ne eded data elements a re missing the Laboratory vishnu ot compute an estimation of t he glomerular filtration rate . CREATININE (test 0.64 mg/dL 0.44-1.03 N code = CREAT) TOTAL PROTEIN (test 6.0 g/dL 6.7-8.2 L code = PROT) ALBUMIN (test code 3.6 g/dL 3.2-5.5 N = ALB) CALCIUM (test code 8.9 mg/dL 8.5-10.5 N = CA) BILIRUBIN TOTAL 1.60 mg/dL 0.2-1.3 H (test code = BILT) SGOT/AST (test code 684 U/L 10-42 H = AST) SGPT/ALT (test code 1151 U/L 10-60 H = ALT) ALKALINE 238 U/L 42-121 H PHOSPHATASE (test code = ALKP) [id number] 08:23:00 Test Item Value Reference Range Interpretation Comments GLUBED (test code = GLUBED) 139 MG/DL 70-105 H CBC W/AUTO [id number] 08:08:00 Test Item Value Reference Range Interpretation Comments WHITE BLOOD CELL (test code = 6.1 x10 3/uL 3.2-11.5 N WBC) RED BLOOD CELL (test code = 4.45 x10(6)/m 3.70-5.10 N RBC) HEMOGLOBIN (test code = HGB) 13.3 g/dL 12.0-15.0 N HEMATOCRIT (test code = HCT) 39.7 % 35.7-44.8 N MEAN CELL VOLUME (test code = 89 fL 80-100 N MCV) MEAN CELL HGB (test code = MCH) 30.0 pg 26.2-33.8 N MEAN CELL HGB CONCENTRATION 33.6 g/dL 30.0-34.0 N (test code = MCHC) RED CELL DISTRIBUTION WIDTH 13.0 % 11.3-14.5 N (test code = RDW) PLATELET COUNT (test code = 297 x10 3/uL 130-408 N PLT) MEAN PLATELET VOLUME (test code 8.3 fl 6.4-10.5 N = MPV) NEUTROPHIL % (test code = NT%) 50.2 % 40.0-70.0 N LYMPHOCYTE % (test code = LY%) 33.1 % 20-40 N MONOCYTE % (test code = MO%) 8.5 % 1-10 N EOSINOPHIL % (test code = EO%) 7.5 % 1.0-5.0 H BASOPHIL % (test code = BA%) 0.7 % 0.0-1.0 N NEUTROPHIL # (test code = NT#) 3.1 x10 3/uL 1.6-7.2 N LYMPHOCYTE # (test code = LY#) 2.00 x10 3/uL 1.1-2.7 N MONOCYTE # (test code = MO#) 0.5 x10 3/uL 0.3-0.8 N EOSINOPHIL # (test code = EO#) 0.5 x10 3/uL 0.0-0.5 N BASOPHIL # (test code = BA#) 0.0 x10 3/uL 0.0-0.1 N [id number] 23:40:00 Test Item Value Reference Range Interpretation Comments AMYLASE (test code = CLIFFORD) 1232 U/L 25-125 H BASIC METABOLIC [id number] 23:26:00 Test Item Value Reference Range Interpretation Comments SODIUM (test code 140 mmol/L 135-145 N = NA) POTASSIUM (test 3.9 mmol/L 3.6-5.0 N code = K) CHLORIDE (test 103 mmol/L 101-111 N code = CL) CARBON DIOXIDE 28 mmol/L 21-31 N (test code = CO2) GLUCOSE (test code 163 mg/dl 70-100 H = GLU) BLOOD UREA 8 mg/dl 6-20 N NITROGEN (test code = BUN) GLOMERULAR >=60 max >60 The estimated FILTRATION RATE estimate glomerular (test code = GFR) filtration rate is computed usingpatient ra ce, age (>18), sex, and serum creatinin e. If anyof the neede d data elements a re missing the Laboratory vishnu ot compute an estimation of t he glomerular filtration rate . CREATININE (test 0.65 mg/dL 0.44-1.03 N code = CREAT) CALCIUM (test code 9.5 mg/dL 8.5-10.5 N = CA) LIVER FUNCTION [id number] 23:26:00 Test Item Value Reference Range Interpretation Comments TOTAL PROTEIN (test code = PROT) 7.2 g/dL 6.7-8.2 N ALBUMIN (test code = ALB) 4.2 g/dL 3.2-5.5 N BILIRUBIN TOTAL (test code = BILT) 1.80 mg/dL 0.2-1.3 H BILIRUBIN DIRECT (test code = 0.9 mg/dL 0.00-0.20 H BILD) SGOT/AST (test code = AST) 586 U/L 10-42 H SGPT/ALT (test code = ALT) 1004 U/L 10-60 H ALKALINE PHOSPHATASE (test code = 232 U/L 42-121 H ALKP) [id number] 23:26:00 Test Item Value Reference Range Interpretation Comments LIPASE (test code = LIP) 4026 IU/L 22-51 H BASIC METABOLIC [id number] 22:34:00 Test Item Value Reference Range Interpretation Comments SODIUM (test code 140 mmol/L 135-145 N = NA) POTASSIUM (test 3.9 mmol/L 3.6-5.0 N code = K) CHLORIDE (test 103 mmol/L 101-111 N code = CL) CARBON DIOXIDE 28 mmol/L 21-31 N (test code = CO2) GLUCOSE (test code 163 mg/dl 70-100 H = GLU) BLOOD UREA 8 mg/dl 6-20 N NITROGEN (test code = BUN) GLOMERULAR >=60 max >60 The estimated FILTRATION RATE estimate glomerular (test code = GFR) filtration rate is computed usingpatient ra ce, age (>18), sex, and serum creatinin e. If anyof the neede d data elements a re missing the Laboratory vishnu ot compute an estimation of t he glomerular filtration rate . CREATININE (test 0.65 mg/dL 0.44-1.03 N code = CREAT) CALCIUM (test code 9.5 mg/dL 8.5-10.5 N = CA) LIVER FUNCTION [id number] 22:34:00 Test Item Value Reference Range Interpretation Comments TOTAL PROTEIN (test code = PROT) 7.2 g/dL 6.7-8.2 N ALBUMIN (test code = ALB) 4.2 g/dL 3.2-5.5 N BILIRUBIN TOTAL (test code = BILT) 1.80 mg/dL 0.2-1.3 H BILIRUBIN DIRECT (test code = 0.9 mg/dL 0.00-0.20 H BILD) SGOT/AST (test code = AST) 586 U/L 10-42 H SGPT/ALT (test code = ALT) 1004 U/L 10-60 H ALKALINE PHOSPHATASE (test code = 232 U/L 42-121 H ALKP) [id number] 22:34:00 Test Item Value Reference Range Interpretation Comments LIPASE (test code = LIP) IU/L 22-51 URINALYSIS [id number] 22:23:00 Test Item Value Reference Range Interpretation Comments UA COLOR (test code = COLU) YELLOW YELLOW UA APPEARANCE (test code = APPU) Cloudy CLEAR UA GLUCOSE DIPSTICK (test code = NEGATIVE NEGATIVE DGLUU) UA BILIRUBIN DIPSTICK (test code = NEGATIVE NEGATIVE BILU) UA KETONE DIPSTICK (test code = NEGATIVE NEGATIVE KETU) UA SPECIFIC GRAVITY (test code = 1.013 1.001-1.030 SGU) UA BLOOD DIPSTICK (test code = GEOVANNA) NEGATIVE NEGATIVE UA PH DIPSTICK (test code = LING) 9.0 5.0-9.0 A UA PROTEIN DIPSTICK (test code = NEGATIVE NEGATIVE PROU) UA UROBILINOGEN DIPSTICK (test code 2.0 <=1.0 A = URO) UA NITRITE DIPSTICK (test code = NEGATIVE NEGATIVE AMELIA) UA ASCORBIC ACID DIPSTICK (test NEGATIVE code = AAU) UA LEUKOCYTE ESTERASE DIPSTICK NEGATIVE NEGATIVE (test code = LEUU) UA WBC (test code = WBCU) 0-5 /HPF 0-5 UA RBC (test code = RBCU) 0-5 /HPF 0-5 UA EPITHELIAL CELLS (test code = RARE /LPF NONE-FEW EPIU) UA BACTERIA (test code = BACU) None /HPF NONE SEEN UA AMORPHOUS SEDIMENT (test code = FEW /HPF NONE SEEN AMORU) HCG SERUM [id number] 22:19:00 Test Item Value Reference Range Interpretation Comments HCG SERUM QUAL NEGATIVE NEGATIVE This is a brigette litative (test code = HCGQL) screenin g test.The quantitative Bh cg may be helpful.Weakly positive results should be repeated in 48 hours. CBC W/AUTO [id number] 22:12:00 Test Item Value Reference Range Interpretation Comments WHITE BLOOD CELL (test code = 11.2 x10 3/uL 3.2-11.5 N WBC) RED BLOOD CELL (test code = 4.72 x10(6)/m 3.70-5.10 N RBC) HEMOGLOBIN (test code = HGB) 14.1 g/dL 12.0-15.0 N HEMATOCRIT (test code = HCT) 41.4 % 35.7-44.8 N MEAN CELL VOLUME (test code = 88 fL 80-100 N MCV) MEAN CELL HGB (test code = MCH) 29.8 pg 26.2-33.8 N MEAN CELL HGB CONCENTRATION 34.0 g/dL 30.0-34.0 N (test code = MCHC) RED CELL DISTRIBUTION WIDTH 13.1 % 11.3-14.5 N (test code = RDW) PLATELET COUNT (test code = 352 x10 3/uL 130-408 N PLT) MEAN PLATELET VOLUME (test code 8.6 fl 6.4-10.5 N = MPV) NEUTROPHIL % (test code = NT%) 61.8 % 40.0-70.0 N LYMPHOCYTE % (test code = LY%) 25.7 % 20-40 N MONOCYTE % (test code = MO%) 6.9 % 1-10 N EOSINOPHIL % (test code = EO%) 4.4 % 1.0-5.0 N BASOPHIL % (test code = BA%) 1.2 % 0.0-1.0 H NEUTROPHIL # (test code = NT#) 6.9 x10 3/uL 1.6-7.2 N LYMPHOCYTE # (test code = LY#) 2.90 x10 3/uL 1.1-2.7 H MONOCYTE # (test code = MO#) 0.8 x10 3/uL 0.3-0.8 N EOSINOPHIL # (test code = EO#) 0.5 x10 3/uL 0.0-0.5 N BASOPHIL # (test code = BA#) 0.1 x10 3/uL 0.0-0.1 N - US ABDOMEN [id number] 18:30:00Patient Name: FAISAL ROJAS Unit No: [id number] EXAMS: CPT: [id number] US ABDOMEN LTD [id number] ULTRASOUND: RIGHT UPPER QUADRANT CLINICAL HISTORY: Abdominal pain. COMPARISON: None available FINDINGS: Images of the pancreatic head and proximal body do not demonstrate any focal lesions. Heterogeneous fatty infiltrationliver. Small gallbladder calculi. No wall thickening or pericholecystic fluid. Common duct measured 0.7 cm Right kidney does not demonstrate hydronephrosis or renal calculi. IMPRESSION: Cholelithiasis. The common duct is prominent measuring 0.7 cm. Cannot exclude distal biliary obstruction. This can be further evaluated with MRCP. Heterogeneous fatty infiltration of liver. at 1830 Reported and signed by: Jose Fernandez MD CC: Technologist: DEANDRE Abdalla Probe: Trscr Dt/Tm: 02/18/2019 (1830) by:Telly Orig Print D/T: S: 02/18/2019 (1833) BATCH NO: N/A Name: FAISAL ROJAS [facility] Phys: Breanna Herman DO [address] : 1995 Age: 24 Sex: F [place] [id number] Loc: N.ERS Exam Date: 02/18/2019 Status: PRE ER PH: FAX: PAGE 1 Signed Report
[2020-11-20 17:46] LABS: Basophils % 1.1 % (0-1.3); Hematocrit 42.1 % (36.0-45.0); Lymphocytes % 34.2 % (15.3-44.8); MPV 8.9 fL (7.6-11.3); RBC Red Blood Cell Count 5.15 M/uL (3.86-4.86)
[2020-11-20 17:54] LABS: Protime INR 1.05
[2020-11-20 17:59] LABS: Urine Blood Negative (Negative); Urine Glucose Negative (Negative); Urine Protein 1+ (Negative); Urine Specific Gravity 1.025 (1.005-1.030); Urine pH 5.5 (5.0-7.0)
[2020-11-20] MEDS ORDERED: FOLIC ACID 1 MG, MULTIVITAMINS INJ 10 ML, THIAMINE HCL 100 MG in NA CHLORIDE 0.9% 1,000 ML IV ONE (18:00)
[2020-11-20] MEDS ORDERED: NA CHLORIDE 0.9% 1,000 ML ONE ×2 (18:07→19:56)
[2020-11-20 18:09] LABS: ALT/SGPT 41 U/L (12-78); AST/SGOT 17 U/L (15-37); Albumin 4.1 g/dL (3.4-5.0); Alkaline Phosphatase 97 U/L (45-117); BUN Blood Urea Nitrogen 7 mg/dL (7-18); Bicarbonate 17 mmol/L (21-32); Bilirubin Direct 0.1 mg/dL (0-0.2); Bilirubin Total 0.7 mg/dL (0.2-1.0); Glucose Level 262 mg/dL (74-106); Protein, Total 7.7 g/dL (6.4-8.2); Sodium Level 137 mmol/L (136-145)
[2020-11-20 18:10] LABS: Potassium 2.8 mmol/L (3.5-5.1)
[2020-11-20 18:12] LABS: Urine Specific Gravity/Preg 1.025 (1.005-1.030)
[2020-11-20 18:31] LABS: Arterial Blood Carboxyhemoglob 3.4 % (0-1.5); Blood Gas Oxyhemoglobin 92.5 % (94-97); Blood O2 Saturation 96.8 % (92-98.5)
[2020-11-20 18:32] LABS: Barbiturates NEGATIVE (NEGATIVE); Benzodiazepines NEGATIVE (NEGATIVE); Cocaine NEGATIVE (NEGATIVE); METHAMPHETAM POSITIVE (NEGATIVE); Methadone NEGATIVE (NEGATIVE); Opiates NEGATIVE (NEGATIVE); Phencyclidine NEGATIVE (NEGATIVE); THC Cannibis NEGATIVE (NEGATIVE)
[2020-11-20] MEDS ORDERED: INSULIN -REGULAR HUMAN 50 UNIT/0.5 ML ML ONE ×2 (19:03→23:40)
[2020-11-20] MEDS ORDERED: KCL 20 MEQ/100 mL IVPB 20 MEQ/100 ML BAG IV ONE (19:03)
[2020-11-20 22:32] LABS: BUN Blood Urea Nitrogen 8 mg/dL (7-18); Bicarbonate 21 mmol/L (21-32); Glucose Level 289 mg/dL (74-106); Sodium Level 143 mmol/L (136-145)
[2020-11-20 22:33] LABS: Potassium 3.4 mmol/L (3.5-5.1)
[2020-11-20] MEDS ORDERED: LORazepam 2 MG/ML VIAL ONE (22:59)
[2020-11-20] MEDS ORDERED: POTASSIUM 25 MEQ EFFERV TAB ONE (23:00)
--- NOTE | 2020-11-21 00:48 | ER ---
Nurse's Notes [facility] Name: Shania Martino Age: 25 yrs Sex: Female : 1995 Arrival Date: 11/20/2020 Time: 17:05 Bed 18 Private MD: Diagnosis: Suicidal ideations;Suicide attempt-OVERDOSE, NONTOXIC;Type 1 diabetes mellitus;Alcohol abuse;Alcohol abuse with intoxication;Bipolar disorder;Schizophrenia Presentation: 11/20 17:22 Chief complaint: EMS states: "pt is reporting suicidal ideation as well as doing 20 of jd3 ecstasy last night and drinking unknown amount of ETOH today.". Coronavirus screen: At this time, the client does not indicate any symptoms associated with coronavirus-19. Ebola Screen: Patient negative for fever greater than or equal to 101.5 degrees Fahrenheit, and additional compatible Ebola Virus Disease symptoms. Initial Sepsis Screen: Does the patient meet any 2 criteria? No. Patient's initial sepsis screen is negative. Does the patient have a suspected source of infection? No. Patient's initial sepsis screen is negative. Risk Assessment: Do you want to hurt yourself or someone else? Patient reports desire/thoughts of hurting themselves or someone else. Provider notified. Onset of symptoms was November 20, 2020. 17:22 Method Of Arrival: EMS: [facility] jd3 17:22 Acuity: NEGRO 2 jd3 17:24 Note [facility] [place] at bedside at this time. 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 - Social history:: Smoking status: unknown Patient uses alcohol, street drugs, methylenedioxymethamphetamine. Screenin:22 Abuse screen: Denies threats or abuse. Nutritional screening: No deficits noted. jd3 Tuberculosis screening: No symptoms or risk factors identified. Fall Risk Ambulatory Aid- None/Bed Rest/Nurse Assist (0 pts). Gait- Normal/Bed Rest/Wheelchair (0 pts) Mental Status- Oriented to own ability (0 pts). Total Renner Fall Scale indicates No Risk (0-24 pts). Assessment: 17:24 Reassessment: [facility] [place] at bedside. jd3 17:25 Reassessment: Patient and/or family updated on plan of care and expected duration. Pain jd3 level reassessed. Patient is alert, oriented x 3, equal unlabored respirations, skin warm/dry/pink. poison control: monitor pt for prolonged QRS, tox work-up, treat symptoms as they arise. provider notified of poison control's recommendation. 18:00 General: Appears comfortable, Behavior is cooperative, appropriate for age, anxious, jd3 restless. Pain: Denies pain. Neuro: Level of Consciousness is awake, alert, obeys commands, Oriented to person, place, time, situation. Cardiovascular: Denies chest pain, Capillary refill < 3 seconds Patient's skin is warm and dry. 18:00 Respiratory: Airway is patent Respiratory effort is even, unlabored, Respiratory jd3 pattern is regular, symmetrical, Denies cough, shortness of breath. GI: No signs and/or symptoms were reported involving the gastrointestinal system. : No signs and/or symptoms were reported regarding the genitourinary system. EENT: No signs and/or symptoms were reported regarding the EENT system. Derm: Skin is intact, Skin is dry, Skin is normal, Skin temperature is warm. Musculoskeletal: Circulation, motion, and sensation intact. Range of motion: intact in all extremities. 18:30 Reassessment: notified to call [facility] deputy Elias at [phone] prior to jd3 2100 to notify of pt outcome and plan. 19:00 Reassessment: Patient appears in no apparent distress at this time. Patient and/or jd3 family updated on plan of care and expected duration. Pain level reassessed. Patient is alert, oriented x 3, equal unlabored respirations, skin warm/dry/pink. report given to Xiang OCONNOR. 19:00 Reassessment: Patient and/or family updated on plan of care and expected duration. Pain ad5 level reassessed. Patient is alert, oriented x 3, equal unlabored respirations, skin warm/dry/pink. Received care of pt at this time. Pt resting comfortably in stretcher with family at bedside. Pt reports continued SI, denies c/o at this time. Pt remains awake and alert, resp even/unlabored. Skin pwd. IV infusing to R hand without abnormalities or c/o. Pt tolerating po at this time. Denies needs or c/o. See additional paper charting for [facility] SS. Pt remains on SI precautions per protocol with sitter at bedside. NAD noted, will continue to monitor. 20:00 Reassessment: Patient appears in no apparent distress at this time. No changes from ad5 previously documented assessment. Patient and/or family updated on plan of care and expected duration. Pain level reassessed. Pt up to restroom, ambulatory with steady gait. Repositioned back into stretcher for comfort. Reattached to CM, VSS. Resp with ease. IVF reconnected at this time, infusing without difficulty or c/o. Pt remains on SI precautions per protocol with sitter at bedside. NAD noted, will continue to monitor. 21:00 Reassessment: Patient appears in no apparent distress at this time. No changes from ad5 previously documented assessment. Spoke with mental health deputy regarding pt placement status, questions/concerns addressed. Pt IV KCL infusion complete at this time, provider aware. Awaiting further orders. Pt given warm blanket and ice chips per request. Denies other needs. Pt remains on SI precautions per protocol with sitter at bedside. NAD noted, will continue to monitor. 22:00 Reassessment: Patient appears in no apparent distress at this time. No changes from ad5 previously documented assessment. Patient and/or family updated on plan of care and expected duration. Pain level reassessed. Patient is alert, oriented x 3, equal unlabored respirations, skin warm/dry/pink. Pt remains on SI precautions per protocol with sitter at bedside. Pt report to receiving RN in ED, questions/concerns addressed. 22:29 Reassessment: Patient appears in no apparent distress at this time. Patient and/or ad1 family updated on plan of care and expected duration. Pain level reassessed. Patient is alert, oriented x 3, equal unlabored respirations, skin warm/dry/pink. patient with no needs at this time, states she is ready to go. 23:00 Reassessment: No changes from previously documented assessment. Patient and/or family ad1 updated on plan of care and expected duration. Pain level reassessed. Patient is alert, oriented x 3, equal unlabored respirations, skin warm/dry/pink. agitation noted. 11/21 00:00 Reassessment: Patient appears in no apparent distress at this time. No changes from ad1 previously documented assessment. Patient and/or family updated on plan of care and expected duration. Pain level reassessed. Patient is alert, oriented x 3, equal unlabored respirations, skin warm/dry/pink. 01:00 Reassessment: Patient appears in no apparent distress at this time. eyes closed, even ad1 respirations. 02:00 Reassessment: Patient appears in no apparent distress at this time. eyes closed, even ad1 respiratons. 03:00 Reassessment: Patient appears in no apparent distress at this time. eyes closed, even ad1 respirations. 04:00 Reassessment: Patient appears in no apparent distress at this time. eyes closed, even ad1 respirations. 07:00 Reassessment: Patient appears in no apparent distress at this time. Pt. is resting with rb3 eyes closed, respirations even, unlabored. Sitter at the bedside. 08:00 General: Appears in no apparent distress. Behavior is calm, cooperative. Pain: Denies rb3 pain. Neuro: Level of Consciousness is awake, alert, obeys commands, Oriented to person, place, time, situation. Cardiovascular: Patient's skin is warm and dry. Respiratory: Airway is patent Respiratory effort is even, unlabored, Respiratory pattern is regular, symmetrical. 09:00 Reassessment: Patient appears in no apparent distress at this time. No changes from rb3 previously documented assessment. 09:58 Reassessment: Pt. request to speak with the doctor about going home. Dr. Briones rb3 notified. 09:58 Reassessment: Patient appears in no apparent distress at this time. Pt. denies wanting rb3 to hurt herself or anyone else. 11:00 Reassessment: Patient appears in no apparent distress at this time. PT. is resting with rb3 eyes closed, respirations even, unlabored. 12:00 Reassessment: Patient appears in no apparent distress at this time. Patient and/or rb3 family updated on plan of care and expected duration. Pain level reassessed. Patient is alert, oriented x 3, equal unlabored respirations, skin warm/dry/pink. 12:11 Reassessment: Discharge pending due to Dr. Broines wanting to send a prescriptions rb3 home with the pt. and for security to bring personal belongings. Psych: 11/20 18:00 [place] Suicide Severity Screening: In the past month, have you wished you were jd3 or wished you could go to sleep and not wake up? Patient responds "yes." Based off the client's responses additional C-SSRS screening is required. "In the past month, have you actually had any thoughts of killing yourself?" Patient responds "yes." Based off the client's response additional Severy suicide severity screening questions to be further documented on paper forms. "In your lifetime, have you ever done anything, started to do anything, or prepared to do anything to end your life?" Patient responds "yes." Patient reports suicidal intent within 3 past months. Subjective: Patient's mood is sad, hopeless, Delusions are denied, Hallucinations are denied Having thoughts of suicide. Plan for suicide is overdose on drugs. Objective: Patient is cooperative, restless, Speech is normal, Affect is appropriate. Interventions: Removed personal items and placed in bag. Patient placed in hospital gown. Searched person for dangerous items. Urine collected and sent for urine drug test. Belonging list filled out. Safety Checks: Personal items have been removed. Door is open. Visitors are present. sitter at bedside. Patient uses Last use was 4 hours ago. pt reports taking ectasy 1 day ago. Consultation: [facility] [place] consulted and placement received after medically cleared. Vital Signs: 17:14 BP 109 / 61; Pulse 99; Resp 16; Temp 97.8; Pulse Ox 95% on R/A; dh4 19:53 BP 123 / 61; Pulse 112; Resp 19; Pulse Ox 97% on R/A; ea 20:00 BP 113 / 65; Pulse 112; Resp 19; Pulse Ox 95% on R/A; ea 21:00 BP 101 / 50; Pulse 109; Resp 18; Pulse Ox 99% ; ea 22:00 BP 116 / 71; Pulse 108; Resp 18; Pulse Ox 97% ; ea 23:00 BP 97 / 77; Pulse 112; Resp 26; Pulse Ox 97% ; ad1 11/21 00:00 BP 117 / 40; Pulse 110; Resp 27; Pulse Ox 95% ; ad1 01:00 BP 100 / 40; Pulse 98; Resp 23; ad1 02:00 BP 96 / 54; Pulse 101; Resp 22; Pulse Ox 93% ; ad1 03:00 BP 103 / 57; Pulse 94; Pulse Ox 93% ; ad1 04:00 BP 94 / 60; Pulse 93; Resp 18; Pulse Ox 95% ; ad1 07:03 BP 95 / 54; Pulse 90; Resp 19; Pulse Ox 95% ; rb3 08:05 BP 99 / 57; Pulse 87; Resp 18; Temp 97.6(TE); Pulse Ox 94% on R/A; mh5 09:05 BP 102 / 59; Pulse 85; Resp 16; Pulse Ox 94% on R/A; mh5 10:05 BP 116 / 74; Pulse 99; Resp 20; Pulse Ox 96% on R/A; mh5 11:03 BP 97 / 43; Pulse 90; Resp 20; Pulse Ox 95% on R/A; mh5 11:50 BP 121 / 72; Pulse 100; Resp 18; Pulse Ox 96% on R/A; mh5 ED Course: 11/20 17:05 Patient arrived in ED. hb 17:06 Harpreet Pierre PA is PHCP. cp 17:06 Royal Leon MD is Attending Physician. cp 17:21 Jef Thompson, ANASTASIA is Primary Nurse. jd3 17:24 Triage completed. jd3 17:33 Arm band placed on. EKG completed in triage. Results shown to MD. jd3 18:21 Patient has correct armband on for positive identification. Bed in low position. Call jd3 light in reach. Side rails up X 1. Adult w/ patient. 21:57 BMP Sent. ad5 23:20 Followed up with [facility] regarding pts case. Was informed they had tt3 no clinicals and knew nothing about the pt. 23:29 Faxed pt chart to [facility], [address], [facility], [facility] and [facility] between 23:29 and 23:32. 23:33 Initiated transfer at [facility] with James. Stated she needed the patients clinicals, tt3 demographics and the [facility] exclusionary faxed to [phone]. 11/21 08:30 Diet: Patient given a regular meal tray. mh5 11:37 Attending Physician role handed off by Royal Leon MD mau 11:37 Harpreet Briones MD is Attending Physician. mau 12:23 No provider procedures requiring assistance completed. IV discontinued, intact, rb3 bleeding controlled, No redness/swelling at site. Pressure dressing applied. Administered Medications: 11/20 18:08 Drug: NS 0.9% 1000 ml Route: IV; Rate: 1 bolus; Site: right hand; jd3 20:50 Follow up: IV Status: Completed infusion; IV Intake: 1000ml ad5 18:57 Drug: Potassium Chloride 20 mEq Route: IV; Rate: calculated rate; Site: right hand; jd3 18:57 Drug: NovoLIN R (insulin regular human) 7 units {Co-Signature: hb (Hannah Wall RN).} jd3 Route: Sub-Q; Site: abdomen; 20:50 Follow up: Response: No adverse reaction ad5 19:00 Drug: Banana Bag - (NS 0.9% 1000 ml, foLIC Acid 1 mg, Thiamine 100 mg, Multivitamin 1 ad5 amp) Route: IV; Rate: 250 ml/hr; Site: right hand; 20:00 Drug: NS 0.9% 1000 ml Route: IV; Rate: 1 bolus; Site: right hand; ad5 22:55 Drug: Ativan (LORazepam) 1 mg Route: IVP; Site: right hand; ad1 22:55 Drug: Potassium Effervescent Tablet 50 mEq Route: PO; ad1 23:21 Drug: NovoLIN R (insulin regular human) 10 units {Co-Signature: ad5 (Xiang Oconnor).} ad1 Route: Sub-Q; Site: right upper arm; Intake: 20:50 IV: 1000ml; Total: 1000ml. ad5 Outcome: 11/21 00:47 ER care complete, transfer ordered by . cp 11:44 Discharge ordered by . mau 12:23 Discharged to home ambulatory, with family. rb3 12:23 Condition: stable 12:23 Discharge instructions given to patient, Instructed on discharge instructions, follow up and referral plans. medication usage, Demonstrated understanding of instructions, follow-up care, medications, Prescriptions given X 1. 12:25 Patient left the ED. rb3 Signatures: Harpreet Briones MD MD cha DelToro, Anna RN RN ad1 Page, HarpreetFEI jason cp, Heather, RN RN Farideh Hughes 5 Ruby Anaya RN RN Jef Shin RN RN jd3 Anthony Sanchez 4 Himanshu Ferguson 3 Aminah Rey RN RN rb3 Elvin, Xiang ad5 Hannah Wall RN Xiang Oconnor ad5 Corrections: (The following items were deleted from the chart) 11/20 17:28 17:24 Reassessment: [facility] [place] at bedside jd3 jd3 22:47 19:00 Reassessment: Patient and/or family updated on plan of care and expected ad5 duration. Pain level reassessed. Patient is alert, oriented x 3, equal unlabored respirations, skin warm/dry/pink. Received care of pt at this time. Pt resting comfortably in stretcher with family at bedside. Pt reports continued SI, denies c/o at this time. Pt remains awake and alert, resp even/unlabored. Skin pwd. IV infusing to R hand without abnormalities or c/o. Pt tolerating po at this time. Denies needs or c/o. See additional paper charting for [facility]. NAD noted, will continue to monitor. ad5 22:47 20:00 Reassessment: Patient appears in no apparent distress at this time. No changes ad5 from previously documented assessment. Patient and/or family updated on plan of care and expected duration. Pain level reassessed. Pt up to restroom, ambulatory with steady gait. Repositioned back into stretcher for comfort. Reattached to , VSS. Resp with ease. IVF reconnected at this time, infusing without difficulty or c/o. NAD noted, will continue to monitor. ad5 22:48 21:00 Reassessment: Patient appears in no apparent distress at this time. No changes ad5 from previously documented assessment. Spoke with mental health deputy regarding pt placement status, questions/concerns addressed. Pt IV KCL infusion complete at this time, provider aware. Awaiting further orders. Pt given warm blanket and ice chips per request. Denies other needs. NAD noted, will continue to monitor. ad5 11/21 01:39 11/20 22:46 Reassessment: ad5 ad1 11/21 01:39 11/20 23:00 Reassessment: ad1 ad1
--- NOTE | 2020-11-21 00:48 | EDPHYS ---
Physician Documentation [facility] Name: Shania Martino Age: 25 yrs Sex: Female : 1995 Arrival Date: 11/20/2020 Time: 17:05 Bed 18 Private MD: ED Physician Harpreet Briones HPI: 11/20 17:45 This 25 yrs old Female presents to ER via EMS with complaints of Suicidal cp Ideation, ETOH Abuse. 17:45 The patient presents to the emergency department with a history of substance abuse, cp suicide ideation, and the patient has a plan, to overdose with medications. 17:45 Onset: The symptoms/episode began/occurred today. Past psychiatric history: Prior cp diagnosis: bipolar disorder, depression, schizophrenia, Psychiatric medications include: none. Associated signs and symptoms: Pertinent positives; alcohol intoxication, Pertinent negatives: abdominal pain, chest pain, hallucinations, homicidal ideation. Severity of symptoms: in the emergency department the symptoms are unchanged despite EMS interventions. 17:45 Patient reports taking 20 tablets of ectasy last evening. cp VEST BASTER: 18:00 LMP N/A - Irregular menses jd3 Historical: - Allergies: 18:14 PENICILLINS; jd3 - PMHx: 18:14 Asthma; Bipolar disorder; Depression; Schizophrenia; Diabetes - IDDM; epilepsy; jd3 - PSHx: 18:14 pancreas and bile duct surgery; Cholecystectomy; jd3 - Immunization history:: Adult Immunizations unknown. - Social history:: Smoking status: unknown Patient uses alcohol, street drugs, methylenedioxymethamphetamine. ROS: 17:50 Constitutional: Negative for fever. cp 17:50 Cardiovascular: Negative for chest pain. 17:50 Respiratory: Negative for cough, shortness of breath, wheezing. 17:50 Abdomen/GI: Negative for abdominal pain, nausea, vomiting, and diarrhea. 17:50 Neuro: Negative for altered mental status. 17:50 Psych: Positive for suicidal ideation. 17:50 Eyes: Negative for injury, pain, redness, and discharge. cp 17:50 ENT: Negative for ear pain, sore throat, difficulty swallowing, difficulty handling cp secretions. 17:50 All other systems are negative. Exam: 17:46 ECG was reviewed by the Attending Physician. cp 17:55 Constitutional: The patient appears in no acute distress, alert, awake, cp non-diaphoretic, non-toxic, well developed, well nourished, obese. 17:55 Head/Face: Normocephalic, atraumatic. cp 17:55 Eyes: Pupils: equal, round, and reactive to light and accomodation, Conjunctiva: normal, no exudate, no injection, Sclera: no appreciated abnormality, Lids and lashes: appear normal, bilaterally. 17:55 ENT: External ear(s): are unremarkable, Nose: is normal, Mouth: Lips: moist, Oral mucosa: moist, Posterior pharynx: Airway: no evidence of obstruction, patent. 17:55 Neck: ROM/movement: is normal, is supple, without pain, no range of motions limitations. 17:55 Chest/axilla: Inspection: normal, Palpation: is normal, no crepitus, no tenderness. 17:55 Cardiovascular: Rate: tachycardic, Rhythm: regular. 17:55 Respiratory: the patient does not display signs of respiratory distress, Respirations: normal, no use of accessory muscles, no retractions, labored breathing, is not present, Breath sounds: are clear throughout, no decreased breath sounds. 17:55 Abdomen/GI: Inspection: abdomen appears normal, Bowel sounds: active, all quadrants, Palpation: abdomen is soft and non-tender, in all quadrants. 17:55 Psych: Behavior/mood is cooperative, Affect is calm, Judgement / Insight is impaired. Delusions/hallucinations are not present. Vital Signs: 17:14 BP 109 / 61; Pulse 99; Resp 16; Temp 97.8; Pulse Ox 95% on R/A; dh4 19:53 BP 123 / 61; Pulse 112; Resp 19; Pulse Ox 97% on R/A; ea 20:00 BP 113 / 65; Pulse 112; Resp 19; Pulse Ox 95% on R/A; ea 21:00 BP 101 / 50; Pulse 109; Resp 18; Pulse Ox 99% ; ea 22:00 BP 116 / 71; Pulse 108; Resp 18; Pulse Ox 97% ; ea 23:00 BP 97 / 77; Pulse 112; Resp 26; Pulse Ox 97% ; ad1 11/21 00:00 BP 117 / 40; Pulse 110; Resp 27; Pulse Ox 95% ; ad1 01:00 BP 100 / 40; Pulse 98; Resp 23; ad1 02:00 BP 96 / 54; Pulse 101; Resp 22; Pulse Ox 93% ; ad1 03:00 BP 103 / 57; Pulse 94; Pulse Ox 93% ; ad1 04:00 BP 94 / 60; Pulse 93; Resp 18; Pulse Ox 95% ; ad1 07:03 BP 95 / 54; Pulse 90; Resp 19; Pulse Ox 95% ; rb3 08:05 BP 99 / 57; Pulse 87; Resp 18; Temp 97.6(TE); Pulse Ox 94% on R/A; mh5 09:05 BP 102 / 59; Pulse 85; Resp 16; Pulse Ox 94% on R/A; mh5 10:05 BP 116 / 74; Pulse 99; Resp 20; Pulse Ox 96% on R/A; mh5 11:03 BP 97 / 43; Pulse 90; Resp 20; Pulse Ox 95% on R/A; mh5 11:50 BP 121 / 72; Pulse 100; Resp 18; Pulse Ox 96% on R/A; mh5 MDM: 11/20 17:10 Patient medically screened. 23:30 Data reviewed: vital signs, nurses notes, lab test result(s), EKG. cp 23:30 Response to treatment: the patient's symptoms have markedly improved after treatment. 11/20 17:11 Order name: Acetaminophen; Complete Time: 18:18 11/20 17:11 Order name: Basic Metabolic Panel; Complete Time: 18:18 11/20 18:19 Interpretation: Normal except: K 2.8; CO2 17; GLUC 262; CA 8.4. 11/20 17:11 Order name: CBC with Diff; Complete Time: 18:18 11/20 18:21 Interpretation: Normal except: WBC 11.70; RBC 5.15; MCV 81.7; MCH 26.8. 11/20 17:11 Order name: ETOH Level; Complete Time: 18:18 cp 11/20 18:22 Interpretation: Abnormal: ETOH 156. 11/20 17:11 Order name: Hepatic Function; Complete Time: 18:18 cp 11/20 17:11 Order name: PT-INR; Complete Time: 18:18 cp 11/20 17:11 Order name: Ptt, Activated; Complete Time: 18:18 cp 11/20 17:11 Order name: Salicylate; Complete Time: 18:34 cp 11/20 17:11 Order name: Urine Drug Screen; Complete Time: 18:34 11/20 18:34 Interpretation: Normal except: METHAMPHETAMINE POSITIVE. 11/20 17:59 Order name: Urine Dipstick-Ancillary; Complete Time: 18:18 [facility] 11/20 18:06 Order name: Urine --Ancillary (enter results); Complete Time: 18:18 11/20 18:21 Order name: ABG; Complete Time: 20:25 11/20 19:59 Order name: SARS-COV-2 RT PCR; Complete Time: 20:25 [facility] 11/20 17:11 Order name: Urine Test (obtain specimen); Complete Time: 18:08 11/20 17:11 Order name: Suicide Precautions; Complete Time: 17:35 11/20 17:11 Order name: EKG; Complete Time: 17:12 11/20 17:11 Order name: EKG - Nurse/Tech; Complete Time: 17:39 11/20 20:05 Order name: Glucose, Ancillary Testing; Complete Time: 20:25 [facility] 11/20 20:25 Interpretation: Abnormal: GLUC,ANCIL 307. 11/20 21:37 Order name: BMP; Complete Time: 22:36 [facility] 11/20 22:42 Interpretation: Normal except: K 3.4; CL 111; GLUC 289; CA 7.6. 11/21 07:58 Order name: Diet Regular; Complete Time: 07:59 [facility] 11/21 10:15 Order name: Diet Ada 1800 Carlos; Complete Time: 10:16 [facility] 11/20 17:11 Order name: IV Saline Lock; Complete Time: 17:39 11/20 17:11 Order name: Labs collected and sent; Complete Time: 17:41 11/20 17:11 Order name: Suicide Screening ([place]); Complete Time: 17:35 11/20 17:11 Order name: Urine Dipstick-Ancillary (obtain specimen); Complete Time: 18:08 cp EC:46 Rate is 99 beats/min. Rhythm is regular. NJ interval is normal. QRS interval is normal. cp QT interval is prolonged at 386 msec. Interpreted by me. Reviewed by me. Administered Medications: 18:08 Drug: NS 0.9% 1000 ml Route: IV; Rate: 1 bolus; Site: right hand; jd3 20:50 Follow up: IV Status: Completed infusion; IV Intake: 1000ml ad5 18:57 Drug: Potassium Chloride 20 mEq Route: IV; Rate: calculated rate; Site: right hand; jd3 18:57 Drug: NovoLIN R (insulin regular human) 7 units {Co-Signature: hb (Hannah Wall RN).} jd3 Route: Sub-Q; Site: abdomen; 20:50 Follow up: Response: No adverse reaction ad5 19:00 Drug: Banana Bag - (NS 0.9% 1000 ml, foLIC Acid 1 mg, Thiamine 100 mg, Multivitamin 1 ad5 amp) Route: IV; Rate: 250 ml/hr; Site: right hand; 20:00 Drug: NS 0.9% 1000 ml Route: IV; Rate: 1 bolus; Site: right hand; ad5 22:55 Drug: Ativan (LORazepam) 1 mg Route: IVP; Site: right hand; ad1 22:55 Drug: Potassium Effervescent Tablet 50 mEq Route: PO; ad1 23:21 Drug: NovoLIN R (insulin regular human) 10 units {Co-Signature: ad5 (Xiang Oconnor).} ad1 Route: Sub-Q; Site: right upper arm; Disposition: 11/21 11:40 Co-signature as Attending Physician, Harpreet Briones MD I agree with the assessment and mau plan of care. Disposition: 11/21/20 11:44 Discharged to Home. Impression: Suicidal ideations, Suicide attempt - OVERDOSE, NONTOXIC, Type 1 diabetes mellitus, Alcohol abuse, Alcohol abuse with intoxication, Bipolar disorder, Schizophrenia. - Condition is Stable. - Discharge Instructions: Alcohol Intoxication, Bipolar Disorder, Suicidal Feelings: How to Help Yourself, Helping Someone Who is Suicidal, Alcohol Intoxication, Fofe-ox-Kirp, Alcohol Abuse and Nutrition, Type 1 Diabetes Mellitus, Self Care, Adult, Odir-ex-Aaag. - Prescriptions for Depakote 500 mg Oral Tablet, Delayed Release (E.C.) - take 1 tablet by ORAL route every 12 hours; 30 tablet. - Medication Reconciliation Form, Thank You Letter, Antibiotic Education, Prescription Opioid Use form. - Follow up: Private Physician; When: 2 - 3 days; Reason: Recheck today's complaints, Continuance of care, Re-evaluation by your physician. - Problem is new. - Symptoms have improved. Signatures: Dispatcher [employer] EDMS Harpreet Briones MD MD cha DelToro, Anna RN RN ad1 Harpreet Pierre PA PA Jef Thompson, RN RN jd3 Aminah Rey RN RN rb3 Xiang Oconnor ad5 Hannah Wall RN Xiang Oconnor ad5 Corrections: (The following items were deleted from the chart) 11/20 18:19 18:18 Normal except: K 2.8; CO2 17; GLUC 262. [facility] 19:19 17:53 CORONAVIRUS+MR.LAB.BRZ ordered. EDMS EDMS 22:42 22:41 Normal except: K 3.4; CL 111; GLUC 289. [facility] 11/21 02:11 11/20 17:50 All other systems are negative, [facility] 11/21 11:41 00:47 11/21/2020 00:47 Transfer ordered to [facility]. Diagnosis is Suicidal mau ideations. Reason for transfer: Higher level of care. Accepting physician is Doctor. Condition is Stable. Problem is new. Symptoms have improved. 12:25 11:44 11/21/2020 11:44 Discharged to Home. Impression: Suicidal ideations; Suicide rb3 attempt - OVERDOSE, NONTOXIC; Type 1 diabetes mellitus; Alcohol abuse; Alcohol abuse with intoxication; Bipolar disorder; Schizophrenia. Condition is Stable. Forms are Medication Reconciliation Form, Thank You Letter, Antibiotic Education, Prescription Opioid Use. Follow up: Private Physician; When: 2 - 3 days; Reason: Recheck today's complaints, Continuance of care, Re-evaluation by your physician. Problem is new. Symptoms have improved. mau
--- NOTE | 2020-11-21 07:47 | EKG ---
Test Date: 2020-11-20 Test Time: 17:39:25 Actuarial Intern: DAE MEASUREMENT RESULTS: Intervals: Rate: 99 ID: [id number] QRSD: 84 QT: 386 QTc: 495 [place]: P: 54 ID: [id number] QRS: 73 T: 58 INTERPRETIVE STATEMENTS: Normal sinus rhythm Prolonged QT Abnormal ECG Compared to ECG 04/24/2018 19:12:17 Prolonged QT interval now present Electronically Signed On 11-21-20 07:46:19 CDT by Gilmer Robertson
[2020-11-21 12:57] VITALS: TEMP 97.6
[2020-11-21 13:03] VITALS: BP 121/72; O2SAT 96
== END 2020-11-21 12:25 | disposition home or self-care (01) ==
LOC: ER 17:00
DX: R45.851 Suicidal ideations (principal); F10.129 Alcohol abuse with intoxication, unspecified; E10.9 Type 1 diabetes mellitus without complications; T43.641A Poisoning by ecstasy, accidental (unintentional), initial encounter; F31.9 Bipolar disorder, unspecified; F20.9 Schizophrenia, unspecified; Z20.822 Contact with and (suspected) exposure to COVID-19; J45.909 Unspecified asthma, uncomplicated; G40.909 Epilepsy, unspecified, not intractable, without status epilepticus; Y90.6 Blood alcohol level of 120-199 mg/100 ml
CPT/HCPCS: 36415; 80048; 80076; 80307; 80320; 80329; 81003; 81025; 82805; 82947; 85025; 85610; 85730; 93005; 96361; 96372; 96374; 96375; 99285; J3411; J3480; J7030; U0003

== ENCOUNTER 2022-06-10 17:42 | Emergency (ER) | payer SELFPAY ==
--- OUTSIDE RECORDS SUMMARY | 2022-06-10 17:46 | XMS REPORT | Continuity of Care Document ---
:1995 Author Organization [facility] t Address [address] [place] [address] Care Team Providers Name Role Phone Yanick_Yecenia Attending Clinician Unavailable Yanick_Yecenia Admitting Clinician Unavailable Payers Payer Name Policy Type Policy Number Effective Date Expiration Date S ource MEDICA (PPO) [id number] 2016 00:00:00 Problems This patient has no known problems. Allergies, Adverse Reactions, Alerts Allergy Allergy Status Severity Reaction(s) Onset Inactive Treating Comm ents Source Name Type Date Date Clinician Penicill DA Active U [facility] ins 02-18 [place] 00:00: [facility] [address] [facility] Medications This patient has no known medications. Procedures This patient has no known procedures. Encounters Start End Encounter Admission Attending Care Care Encounter Source Date/Time Date/Time Type Type Clinicians Facility Department ID 2020-12-23 2020-12-23 Outpatient Dev [facility] [id number] [place] 05:14:00 05:14:00 [facility] 2020-05-13 2020-05-13 Outpatient TiffanyR [facility] [id number] [place] 02:38:00 02:38:00 [facility] Results Test Description Test Time Test Comments Results Result [facility] e Comments SURGICAL SPECIMENS 2019-02-27 15:48:00 --------RUN DATE: 02/27/19 [facility] - LAB PAGE 1 RUN TIME: 1549 Specimen Inquiry RUN USER: INTERFACE --------PATIENT: FAISAL ROJAS LOC: [id number] U #: [id number] AGE/SX: 24/F ROOM: [facility] RE[facility]: Prakash Hogan MD : [birth year] BED: 1 DIS: 02/22/19 STATUS: DIS IN TLOC: -------- SPEC #: [id number] RECD: 02/20/19 STATUS: JENNIFER REEdson #: [id number] KEITH: 02/20/19-[address]: Prakash Hogan MD ENTERED: 02/20/19 SP TYPE: SURG OTHR DR: No Primary [...] 0.1-0.2 cm. no gross lesions are identified. Design Engineering Specialist sections are submitted in cassettes as follows, [...] CONTINUED ON NEXT PAGE --------RUN DATE: 02/27/19 [facility] LAB PAGE 2 RUN TIME: 1549 Specimen Inquiry RUN USER: INTERFACE --------SPEC #: [id number] PATIENT: FAISAL ROJAS Lizet #[id number] (Continued) -------- Signed SIGNATURE ON Dakota Dela Cruz MD 02/27/19 1548 -------- END OF REPORT GLUBED 2019-02-22 07:43:00 Test Item Value Reference Range Interpretation Comme nts GLUBED (test code = GLUBED) 93 MG/DL 70-105 N [id number] 21:01:00 Test Item Value Reference Range Interpretation Comments GLUBED (test code = GLUBED) 90 MG/DL 70-105 N [id number] 16:52:00 Test Item Value Reference Range Interpretation Comments GLUBED (test code = GLUBED) 149 MG/DL 70-105 H [id number] 11:10:00 Test Item Value Reference Range Interpretation Comments GLUBED (test code = GLUBED) 90 MG/DL 70-105 N [id number] 08:08:00 Test Item Value Reference Range Interpretation Comments GLUBED (test code = GLUBED) 116 MG/DL 70-105 H COMPREHENSIVE METABOLIC [id number] 05:44:00 Test Item Value Reference Range Interpretation [...] PHOSPHATASE (test code = ALKP) CBC W/AUTO [id number] 05:03:00 Test Item Value Reference Range Interpretation [...] = BA#) 0.0 x10 3/uL 0.0-0.1 N [id number] 20:11:00 Test Item Value Reference Range Interpretation Comments GLUBED (test code = GLUBED) 188 MG/DL 70-105 H COMPREHENSIVE METABOLIC [id number] 18:14:00 Test Item Value Reference Range Interpretation [...] 42-121 H PHOSPHATASE (test code = ALKP) [id number] 15:38:00 Test Item Value Reference Range Interpretation Comments GLUBED (test code = GLUBED) 167 MG/DL 70-105 H [id number] 13:06:00 Test Item Value Reference Range Interpretation Comments GLUBED (test code = GLUBED) 127 MG/DL 70-105 H [id number] 11:08:00 Test Item Value Reference Range Interpretation Comments GLUBED (test code = GLUBED) 139 MG/DL 70-105 H [id number] 08:23:00 Test Item Value Reference Range Interpretation Comments GLUBED (test code = GLUBED) 121 MG/DL 70-105 H ACUTE HEPATITIS [id number] 08:07:00 Test Item Value Reference Range Interpretation Comments AB HEPATITIS A IGM (test code = NEGATIVE NEGATIVE HAVMAB) AG HEPATITIS B SURFACE (test code = NEGATIVE NEGATIVE HBSAG) AB HEPATITIS B CORE IGM (test code = NEGATIVE NEGATIVE HBCMAB) AB HEPATITIS C (test code = HCVAB) NEGATIVE NEGATIVE [id number] 06:58:00 Test Item Value Reference Range Interpretation Comments AMYLASE (test code = CLIFFORD) 619 U/L 25-125 H [id number] 06:58:00 Test Item Value Reference Range Interpretation Comments LIPASE (test code = LIP) 851 IU/L 22-51 H [id number] 06:34:00 Test Item Value Reference Range Interpretation Comments AMYLASE (test code = CLIFFORD) 619 U/L 25-125 H [id number] 06:34:00 Test Item Value Reference Range Interpretation Comments LIPASE (test code = LIP) IU/L 22-51 COMPREHENSIVE METABOLIC [id number] 06:34:00 Test Item Value Reference Range Interpretation [...] H PHOSPHATASE (test code = ALKP) PROTHROMBIN [id number] 06:31:00 Test Item Value Reference Range Interpretation Comments PROTHROMBIN TIME 13.7 SECONDS 9.6-13.0 H PATIENT (test code = PTP) INTERNATIONAL NORMAL 1.2 The INR is to be RATIO (test code = used only for INR) monitoring oral anticoagulantth erap y. INDICATION I NR VALUE ---- ---- ---- --------1. Prophylaxis, de ep venous thrombos is, 2.0 - 2.5 inclu ding high-risk surgery.2. Prophylaxis, de ep venous thrombos is, 2.0 - 3.0 hip surgery, treatm ent for deep venous thrombosis or pulmonary prevention of systemic emboli sm in patients wit h valvular heart disease, atrial fibrillation, tissue heart va lve, or acute myocar dial infarction.3. Mechanical prosthesis hear t valves, 3.0 - 4 .5 recurrent syste maury embolism. THROMBOPLASTIN TIME [id number] 06:31:00 Test Item Value Reference Range Interpretation Comments THROMBOPLASTIN TIME PARTIAL (test 35 SECONDS 25-37 N code = PTT) CBC W/AUTO [id number] 06:29:00 Test Item Value Reference Range Interpretation [...] = BA#) 0.0 x10 3/uL 0.0-0.1 N [id number] 20:25:00 Test Item Value Reference Range Interpretation Comments GLUBED (test code = GLUBED) 170 MG/DL 70-105 H [id number] 18:44:00 Test Item Value Reference Range Interpretation Comments GLUBED (test code = GLUBED) 152 MG/DL 70-105 H COMPREHENSIVE METABOLIC [id number] 15:29:00 Test Item Value Reference Range Interpretation [...] 42-121 H PHOSPHATASE (test code = ALKP) [id number] 12:38:00 Test Item Value Reference Range Interpretation Comments GLUBED (test code = GLUBED) 122 MG/DL 70-105 H HGBA1C - GLYCOSYLATED [id number] 11:51:00 Test Item Value Reference Range Interpretation Comments GLYCOSYLATED HEMOGLOBIN 6.3 % 4.0-6.0 H Inte rpretive Data: (HA1C) (test code = Caution should be GLYHGB) exercised when interpreting th e HgbA1c in patients wit h hemolytic anemi a, iron deficiency and when the total hemoglobi n is < 9g/dL, due to a decrease in average age of red blood cells - MRI [id number] 11:17:00Patient Name: FAISAL ROJAS Unit No: [id number] EXAMS: CPT: [id number] MRI MRCP 31215 MRCP: HISTORY: Dilated common bile duct. COMPARISON: Ultrasound from February 18, 2019 TECHNIQUE: Multisequence multiplanar MR imaging of the abdomen without contrast. FINDINGS: The common bile duct is mildly dilatedmeasuring 7 mm. Trace intrahepatic biliary dilatation. No bile duct stone or stricture seen. There is no evidence of pancreas divisum. Pancreatic [...] MD CC: Prakash Hogan MD Technologist: Milton Goodson Dt/Tm: 02/19/2019 (1117) by:[email or web address] Orig Print D/T: S: 02/19/2019 (1120) BATCH NO: N/A Name: FAISAL ROJAS [facility] Phys: YASMIN.Ning Prakash Hogan [address] [place] : 1995 Age: 24 Sex: F [place] [id number] Loc: N.6026 1 Exam Date: 02/18/2019 Status: ADM IN PH: FAX: PAGE 1 Signed ReportCOMPREHENSIVE METABOLIC [id number] 08:30:00 Test Item Value Reference Range Interpretation [...] 42-121 H PHOSPHATASE (test code = ALKP) [id number] 08:23:00 Test Item Value Reference Range Interpretation Comments GLUBED (test code = GLUBED) 139 MG/DL 70-105 H CBC W/AUTO [id number] 08:08:00 Test Item Value Reference Range Interpretation [...] = BA#) 0.0 x10 3/uL 0.0-0.1 N [id number] 23:40:00 Test Item Value Reference Range Interpretation Comments AMYLASE (test code = CLIFFORD) 1232 U/L 25-125 H BASIC METABOLIC [id number] 23:26:00 Test Item Value Reference Range Interpretation [...] mg/dL 8.5-10.5 N = CA) LIVER FUNCTION [id number] 23:26:00 Test Item Value Reference Range Interpretation [...] code = 232 U/L 42-121 H ALKP) [id number] 23:26:00 Test Item Value Reference Range Interpretation Comments LIPASE (test code = LIP) 4026 IU/L 22-51 H BASIC METABOLIC [id number] 22:34:00 Test Item Value Reference Range Interpretation [...] mg/dL 8.5-10.5 N = CA) LIVER FUNCTION [id number] 22:34:00 Test Item Value Reference Range Interpretation [...] code = 232 U/L 42-121 H ALKP) [id number] 22:34:00 Test Item Value Reference Range Interpretation Comments LIPASE (test code = LIP) IU/L 22-51 URINALYSIS [id number] 22:23:00 Test Item Value Reference Range Interpretation [...] FEW /HPF NONE SEEN AMORU) HCG SERUM [id number] 22:19:00 Test Item Value Reference Range Interpretation Comments HCG SERUM QUAL NEGATIVE NEGATIVE This is a brigette litative (test code = HCGQL) screenin g test.The quantitative Bh cg may be helpful.Weakly positive results should be repeated in 48 hours. CBC W/AUTO [id number] 22:12:00 Test Item Value Reference Range Interpretation [...] x10 3/uL 0.0-0.1 N - US ABDOMEN [id number] 18:30:00Patient Name: FAISAL ROJAS Unit No: [id number] EXAMS: CPT: [id number] US ABDOMEN LTD 31753 ULTRASOUND: RIGHT UPPER QUADRANT CLINICAL HISTORY: Abdominal pain. COMPARISON: None available FINDINGS: Images of the pancreatic head and proximal body do not demonstrate any focal lesions. Heterogeneous fatty infiltration liver. Small gallbladder calculi. No wall thickening or pericholecystic fluid. Commonduct measured 0.7 cm Right kidney does not demonstrate hydronephrosis or renal calculi. IMPRESSION: C holelithiasis. The common duct is prominent measuring 0.7 cm. Cannot exclude distal biliary obstruction. This can be further evaluated with MRCP. Heterogeneous fatty infiltration of liver. at 1830 Reported and signed by: Jose Fernandez MD CC: Technologist: DEANDRE Abdalla Probe: Trscr Dt/Tm: 02/18/2019 (1830) by:Telly Orig Print D/T: S: 02/18/2019 (1833) BATCH NO: N/A Name: BOBFAISAL [facility] Phys: Breanna Herman DO [address] [place] : 1995 Age: 24 Sex: F [place] [id number] Loc: N.ERS Exam Date: 02/18/2019 Status: PRE ER PH: FAX: PAGE 1 Signed Report
[2022-06-10 18:27] LABS: Urine Blood Negative (Negative); Urine Glucose 2+ (Negative); Urine Protein Negative (Negative); Urine Specific Gravity 1.025 (1.005-1.030); Urine pH 6.5 (5.0-7.0)
[2022-06-10 18:38] LABS: Urine Specific Gravity/Preg 1.025 (1.005-1.030)
[2022-06-10] MEDS ORDERED: KETOROLAC 30 MG/ML INJ ONE (19:39)
[2022-06-10] MEDS ORDERED: NA CHLORIDE 0.9% 1,000 ML ONE (19:39)
[2022-06-10 19:53] LABS: Hematocrit 42.9 % (36.0-45.0); Lymphocytes % 26.2 % (15.3-44.8); MPV 8.5 fL (7.6-11.3); RBC Red Blood Cell Count 4.99 M/uL (3.86-4.86)
[2022-06-10 19:56] LABS: Calcium Oxalate Crystals- Ur Few /HPF (None Seen); Urine Bacteria 20-50 /HPF (<20); Urine Mucus 1+ /HPF (None Seen); Urine RBC <5 /HPF (None Seen)
[2022-06-10 20:18] LABS: Albumin 3.4 g/dL (3.4-5.0); Bilirubin Total 0.5 mg/dL (0.2-1.0); Potassium 3.5 mmol/L (3.5-5.1); Protein, Total 8.2 g/dL (6.4-8.2)
--- NOTE | 2022-06-10 20:49 | RAD REPORT ---
EXAM DESCRIPTION: CTAbdomen Pelvis W Contrast - 06/10/2022 8:36 pm CLINICAL HISTORY: Abdominal pain. lower abdomen pain COMPARISON: Abdomen Pelvis W Contrast dated 01/15/2019 TECHNIQUE: Biphasic CT imaging of the abdomen and pelvis was performed with 100 ml non-ionic IV cont rast. All CT scans are performed using dose optimization technique as appropriate and may include automated exposure control or mA/KV adjustment according to patient size. FINDINGS: The lung bases are clear.Cholecystectomy. The liver, spleen, pancreas, adrenal glands and kidneys are within normal limits. No bowel obstruction, free air, free fluid or abscess. The appendix is normal. There is a 4.9 x 2.9 cm rim enhancing collection adjacent to the left ovary in the region of the left adnexa probably tub o-ovarian abscess. No suspicious bony findings. 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 IMPRESSION: 4.9 x 2.9 cm rim enhancing collection adjacent to the left ovary the left adnexa likely represents tubo-ovarian abscess. Underlying pelvic infection/ pelvic inflammatory disease is likely.
[2022-06-10] MEDS ORDERED: CEFTRIAXONE 500 MG/VIAL ONE (21:40)
[2022-06-10] MEDS ORDERED: AZITHROMYCIN 250 MG TAB ONE (21:40)
[2022-06-10] MEDS ORDERED: WATER FOR INJ,STERILE 10 ML ONE (21:41)
[2022-06-10] MEDS ORDERED: DOXYCYCLINE 100 MG CAP PO ONE (21:41)
--- NOTE | 2022-06-10 21:41 | ER ---
Nurse's Notes [facility] Name: Shania Martino Age: 27 yrs Sex: Female : 1995 Arrival Date: 06/10/2022 Time: 17:45 Bed 19 Private MD: Diagnosis: Left Tubo-ovarian Abscess Presentation: 06/10 18:11 Chief complaint: Patient states: Suprapubic pain and vaginal pain x5 days, possible kb3 exposure to STI. Coronavirus screen: Vaccine status: Patient reports being unvaccinated. Client denies travel out of the [place] in the last 14 days. Ebola Screen: Patient negative for fever greater than or equal to 101.5 degrees Fahrenheit, and additional compatible Ebola Virus Disease symptoms Patient denies exposure to infectious person. Patient denies travel to an Ebola-affected area in the 21 days before illness onset. No symptoms or risks identified at this time. Initial Sepsis Screen: Does the patient meet any 2 criteria? No. Patient's initial sepsis screen is negative. Does the patient have a suspected source of infection? No. Patient's initial sepsis screen is negative. Risk Assessment: Do you want to hurt yourself or someone else? Patient reports no desire to harm self or others. Onset of symptoms was June 05, 2022. 18:11 Method Of Arrival: Ambulatory kb3 18:11 Acuity: NEGRO 3 kb3 Triage Assessment: 18:13 General: Appears distressed, uncomfortable, Behavior is calm, cooperative. Pain: kb3 Complains of pain in suprapubic area Pain does not radiate. Pain currently is 10 out of 10 on a pain scale. Quality of pain is described as burning, sharp. 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 - Social history:: Smoking status: Patient denies any tobacco usage or history of. Screenin:54 Abuse screen: Denies threats or abuse. Denies injuries from another. Nutritional kd3 screening: No deficits noted. Tuberculosis screening: No symptoms or risk factors identified. 22:34 [facility] ED Fall Risk Assessment (Adult) History of falling in the last 3 months, kl including since admission No falls in past 3 months (0 pts). Fall Risk No fall in past 12 months (0 pts). No secondary diagnosis (0 pts). No IV (0 pts). Ambulatory Aid- None/Bed Rest/Nurse Assist (0 pts). Gait- Normal/Bed Rest/Wheelchair (0 pts) Mental Status- Oriented to own ability (0 pts). Total Renner Fall Scale indicates No Risk (0-24 pts). Assessment: 19:53 General: Appears uncomfortable, Behavior is calm, cooperative. Pain: Complains of pain kd3 in abdomen and suprapubic area. Neuro: Level of Consciousness is awake, alert, obeys commands, Oriented to person, place, time, situation. Cardiovascular: Patient's skin is warm and dry. Respiratory: Airway is patent Trachea midline Respiratory effort is even, unlabored, Respiratory pattern is regular, symmetrical. 21:15 Reassessment: This nurse informed pt that she needs to be transferred for IV jl7 antibiotics and SECTION CHIEF. Pt crying, agitated, states "I'm just leaving." This nurse informed pt that she would be leaving against medical advise and that if she leaves she put herself at risk for sepsis and dying if she is not treated. Pt continues to shake her head and yell at her mother reporting "I'm homeless and will just go to [place] and get treatment up there." Again, this nurse informed pt that she would be transferred via EMS to [place] for treatment. Pt states "No, I am leaving." Pt agreed to PO and IM antibiotics and verbalized understanding of risk and she will sign an AMA form. ERP updated and will be to bedside to reinforce risk prior to pt being discharged. 22:31 Reassessment: pt refusing further blood work and transfer Harpreet ENAMORADO in to speak kl with patient pt educated pt and pt mother on risks of leaving and refusing further treatment for ovarian abscess Pt and mother verbalized understanding . Vital Signs: 18:11 BP 90 / 55; Pulse 110; Resp 20; Temp 100.2; Pulse Ox 99% ; Weight 63.5 kg; Height 4 ft. kb3 9 in. (144.78 cm); Pain 10/10; 19:53 BP 107 / 69; Pulse 108; Resp 19; Pulse Ox 98% on R/A; kd3 18:11 Body Mass Index 30.30 (63.50 kg, 144.78 cm) kb3 ED Course: 17:45 Patient arrived in ED. rg4 17:47 Harpreet Pierre PA is PHCP. cp 17:47 Jose Patton MD is Attending Physician. cp 18:13 Triage completed. kb3 18:13 Arm band placed on right wrist. kb3 18:26 Urine collected: clean catch specimen, cloudy. tm3 18:48 Sue Cortés, RN is Primary Nurse. kc6 19:33 Inserted saline lock: 20 gauge in right forearm, using aseptic technique. kd3 19:46 Urine Microscopic Only Sent. kd3 19:46 Lipase Sent. kd3 19:46 CMP Sent. kd3 19:46 CBC with Diff Sent. kd3 20:37 CT Abd/Pelvis - IV Contrast Only In Process Unspecified. EDMS 21:05 Primary Nurse role handed off by Sue Cortés RN wm 21:36 Mishel Eddy MD is Referral Physician. cp 22:16 US Transvaginal Study (Probe) In Process Unspecified. EDMS 22:33 No provider procedures requiring assistance completed. IV discontinued, intact, kl bleeding controlled, No redness/swelling at site. Pressure dressing applied. 22:35 Patient has correct armband on for positive identification. kl Administered Medications: 19:46 Drug: NS 0.9% 1000 ml Route: IV; Rate: 1 bolus; Site: right forearm; kd3 19:46 Drug: Ketorolac 15 mg Route: IVP; Site: right forearm; kd3 21:35 CANCELLED (Physician Discretion): Mefoxin (cefOXitin) 2 grams IVPB once over 30 mins; cp (mix in 100 mL NS) 22:21 Drug: Doxycycline 200 mg Route: PO; kl 22:21 Not Given (Patient Refused): NS 0.9% 1000 ml IV at 1 bolus Per protocol; 1000 mL bolus kl 22:21 Drug: Rocephin (cefTRIAXone) 500 mg Route: IM; Site: left ventrogluteal; kl 22:21 Drug: Zithromax (azithromycin) 1 grams Route: PO; kl Medication: 22:35 VIS not applicable for this client. kl Outcome: 21:40 Discharge ordered by . cp 22:34 Discharged to home with family. kl 22:34 Condition: unchanged 22:34 Discharge instructions given to patient, family, Instructed on discharge instructions, follow up and referral plans. medication usage, Demonstrated understanding of instructions. 22:35 Patient left the ED. Signatures: Dispatcher [employer] EDMS Patrica Jvaed, RN RN soto Rider, Jaison tm3 Harpreet Pierre PA PA cp Garcia, Rubi rg4 Vikash Do RN RN jl7 Bryanna Nash Kyli, RN RN kd3 Sue Cortés RN RN kc6 Maggie Munoz RN RN kb3 Corrections: (The following items were deleted from the chart) 18:14 18:13 Home Meds: Depakote Oral; kb3 kb3 18:14 18:13 Home Meds: divalproex Oral; kb3 kb3 18:14 18:13 Home Meds: Novolin R 100 unit/mL injection soln; kb3 kb3 18:14 18:13 Home Meds: Novolog 100 unit/mL Sub-Q soln 20 units morning and night; kb3 kb3 18:14 18:13 PMHx: Diabetes - IDDM; kb3 kb3
--- NOTE | 2022-06-10 21:41 | EDPHYS ---
Physician Documentation [facility] Name: Shania Martino Age: 27 yrs Sex: Female : 1995 Arrival Date: 06/10/2022 Time: 17:45 Bed 19 Private MD: ED Physician Jose Patton HPI: 06/10 19:00 This 27 yrs old Female presents to ER via Ambulatory with complaints of Pelvic Pain. cp 19:00 The patient presents with abdominal pain in the lower abdomen. Onset: The cp symptoms/episode began/occurred 5 day(s) ago. 19:00 The symptoms do not radiate. Associated signs and symptoms: Pertinent negatives: chest cp pain, constipation, diarrhea, dysuria, fever, vomiting, vaginal bleeding. The symptoms are described as constant. Severity of pain: in the emergency department the pain is unchanged despite home interventions. Patient reports concern for possible sexually transmitted infection. 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 - Social history:: Smoking status: Patient denies any tobacco usage or history of. ROS: 19:05 Constitutional: Negative for body aches, chills, fever, poor PO intake. cp 19:05 Eyes: Negative for injury, pain, redness, and discharge. cp 19:05 Cardiovascular: Negative for chest pain. 19:05 Respiratory: Negative for cough, shortness of breath, wheezing. 19:05 Abdomen/GI: Positive for abdominal pain, of the lower abdomen, Negative for vomiting, diarrhea, constipation, anorexia, black/tarry stool, rectal bleeding. 19:05 : Negative for urinary symptoms, flank pain, vaginal bleeding. 19:05 Skin: Negative for cellulitis, rash. 19:05 Neuro: Negative for altered mental status, dizziness, headache, numbness, weakness. 19:05 All other systems are negative. Exam: 19:10 Constitutional: The patient appears in no acute distress, alert, awake, cp non-diaphoretic, non-toxic, well developed, well nourished. 19:10 Head/Face: Normocephalic, atraumatic. cp 19:10 Eyes: Periorbital structures: appear normal, Conjunctiva: normal, no exudate, no injection, Sclera: no appreciated abnormality, Lids and lashes: appear normal, bilaterally. 19:10 ENT: External ear(s): are unremarkable, Nose: is normal, Mouth: Lips: moist, Oral mucosa: moist, Posterior pharynx: Airway: no evidence of obstruction, patent. 19:10 Chest/axilla: Inspection: normal. 19:10 Cardiovascular: Rate: tachycardic, Rhythm: regular. 19:10 Respiratory: the patient does not display signs of respiratory distress, Respirations: normal, no use of accessory muscles, no retractions, labored breathing, is not present, Breath sounds: are clear throughout, no decreased breath sounds, no stridor, no wheezing. 19:10 Abdomen/GI: Inspection: abdomen appears normal, Bowel sounds: active, all quadrants, Palpation: soft, in all quadrants, mild abdominal tenderness, in the right lower quadrant, moderate abdominal tenderness, in the suprapubic area and left lower quadrant, rebound tenderness, is not appreciated, voluntary guarding, is elicited in the suprapubic area and left lower quadrant. 19:10 Back: CVA tenderness, is absent. 19:10 Skin: cellulitis, is not appreciated, no rash present. 19:10 Neuro: Orientation: to person, place \T\ time. Mentation: is normal, Motor: moves all fours, strength is normal, Sensation: is normal. Vital Signs: 18:11 BP 90 / 55; Pulse 110; Resp 20; Temp 100.2; Pulse Ox 99% ; Weight 63.5 kg; Height 4 ft. kb3 9 in. (144.78 cm); Pain 10/10; 19:53 BP 107 / 69; Pulse 108; Resp 19; Pulse Ox 98% on R/A; kd3 18:11 Body Mass Index 30.30 (63.50 kg, 144.78 cm) kb3 MDM: 18:16 Patient medically screened. cp 20:55 Data reviewed: vital signs, nurses notes, lab test result(s), radiologic studies, CT cp scan. 06/10 18:27 Order name: Urine --Ancillary (enter results); Complete Time: 18:44 eb 12/16 18:27 Order name: Urine Dipstick-Ancillary; Complete Time: 18:44 EDMS 06/10 18:44 Interpretation: Normal except: UGLUC 2+; UKET Trace; UNIT Positive. 06/10 18:44 Order name: CBC with Diff; Complete Time: 20:00 06/10 20:00 Interpretation: Abnormal: WBC 11.40; RBC 4.99. 06/10 18:44 Order name: CMP; Complete Time: 21:36 06/10 20:55 Interpretation: Normal except: NA 134; GLUC 242; ALK 188; ALT 77; GLOB 4.8; A/G 0.7. 06/10 18:44 Order name: Lipase; Complete Time: 21:36 06/10 18:51 Order name: Urine Microscopic Only; Complete Time: 20:00 06/10 20:52 Interpretation: Reviewed. 06/10 20:57 Order name: Procalcitonin 06/10 21:02 Order name: ESR; Complete Time: 21:36 06/10 21:08 Order name: C-Reactive Protein; Complete Time: 21:36 EDMS 06/10 18:44 Order name: IV Saline Lock; Complete Time: 19:46 06/10 18:44 Order name: Labs collected and sent; Complete Time: 19:46 06/10 18:51 Order name: Pelvic Exam Setup; Complete Time: 20:29 06/10 19:22 Order name: CT Abd/Pelvis - IV Contrast Only; Complete Time: 20:51 06/10 20:56 Order name: US Transvaginal Study (Probe) cp Administered Medications: 19:46 Drug: NS 0.9% 1000 ml Route: IV; Rate: 1 bolus; Site: right forearm; kd3 19:46 Drug: Ketorolac 15 mg Route: IVP; Site: right forearm; kd3 21:35 CANCELLED (Physician Discretion): Mefoxin (cefOXitin) 2 grams IVPB once over 30 mins; cp (mix in 100 mL NS) 22:21 Drug: Doxycycline 200 mg Route: PO; kl 22:21 Not Given (Patient Refused): NS 0.9% 1000 ml IV at 1 bolus Per protocol; 1000 mL bolus kl 22:21 Drug: Rocephin (cefTRIAXone) 500 mg Route: IM; Site: left ventrogluteal; kl 22:21 Drug: Zithromax (azithromycin) 1 grams Route: PO; kl Disposition Summary: 06/10/22 21:40 Discharge Ordered Location: Home cp Problem: new cp Symptoms: are unchanged cp Condition: Stable cp Diagnosis - Left Tubo-ovarian Abscess cp Followup: cp - With: Mishel Eddy MD - When: 1 - 2 days - Reason: Recheck today's complaints Discharge Instructions: - Discharge Summary Sheet cp Forms: - Medication Reconciliation Form cp - Thank You Letter cp - Antibiotic Education cp - Prescription Opioid Use cp Prescriptions: - Doxycycline Hyclate 100 mg Oral Tablet - take 1 tablet by ORAL route every 12 hours for 14 days; 28 tablet; Refills: 0, cp Product Selection Permitted - Metronidazole 500 mg Oral Tablet - take 1 tablet by ORAL route every 8 hours for 14 days; 42 tablet; Refills: 0, cp Product Selection Permitted Addendum: 22:20 Addendum: Discussed results of labs and CT abd/pelvis showing concern for left c p tubo-ovarian cyst. 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 Patient is of sound mind and decision making capabilities and refuses transfer for COLD PRESS LOADER consult and IV antibiotics at this time. Risks of worsening symptoms to include possible were explained at length with nursing staff and mother present. Patient continued to refuse transfer. Will discharge and treat with oral antibiotics. Patient was informed that she may return at any time for reevaluation. Signatures: Dispatcher [employer] EDPatrica Peck RN RN kl Page, Corey, PA PA cp Doucette, Kyli, RN RN kd3 Maggie Munoz RN RN kb3 Corrections: (The following items were deleted from the chart) 18:14 18:13 Home Meds: Depakote Oral; kb3 kb3 18:14 18:13 Home Meds: divalproex Oral; kb3 kb3 18:14 18:13 Home Meds: Novolin R 100 unit/mL injection soln; kb3 kb3 18:14 18:13 Home Meds: Novolog 100 unit/mL Sub-Q soln 20 units morning and night; kb3 kb3 18:14 18:13 PMHx: Diabetes - IDDM; kb3 kb3 20:55 20:51 Normal except: NA 134; GLUC 242. cp cp 20:55 20:54 Normal except: NA 134; GLUC 242; ALK 188. cp cp 20:55 20:55 Normal except: NA 134; GLUC 242; ALK 188; ALT 77. cp cp 20:55 20:55 Normal except: NA 134; GLUC 242; ALK 188; ALT 77; GLOB 4.8. cp cp 21:09 21:02 C-REACTIVE PROTEIN+C.LAB.BRZ ordered. EDMS EDMS 21:35 20:54 Mefoxin (cefOXitin) 2 grams IVPB once over 30 mins; (mix in 100 mL NS) ordered. cpcp
--- NOTE | 2022-06-10 22:33 | RAD REPORT ---
EXAM DESCRIPTION: US - Transvaginal Study Probe - 06/10/2022 10:14 pm CLINICAL HISTORY: lower abdomen pain Pelvic pain. COMPARISON: No comparisons FINDINGS: The uterus is normal in size, shape and echotexture. The uterus measures 9.0 x 4.7 x 3.9 c m. The endometrial stripe measures 2 mm, normal. Right ovary appears normal in size. Normal blood flow is seen in both ovaries. Left ovary has an abno rmal appearance containing complex cystic structure. This likely correlates with tubo-ovarian abscess findings on recent CT. IMPRESSION: No evidence of ovarian torsion seen. Left-sided adnexal findings remain suspicious for left tubo-ovarian abscess. Advise correlation with clinical pelvic exam.
[2022-06-10 22:58] VITALS: TEMP 100.2
[2022-06-10 23:04] VITALS: BP 107/69; O2SAT 98
== END 2022-06-10 22:35 | disposition home or self-care (01) ==
LOC: ER 17:42
DX: N70.93 Salpingitis and oophoritis, unspecified (principal)
CPT/HCPCS: 36415; 74177; 76830; 80053; 81003; 81015; 81025; 83690; 84145; 85025; 85652; 86140; 96372; 96374; 99284; J0696; J7030; Q0144; Q9967

== ENCOUNTER 2022-10-21 20:11 | Emergency (ER) | payer SELFPAY ==
--- OUTSIDE RECORDS SUMMARY | 2022-10-21 20:15 | XMS REPORT | Continuity of Care Document ---
:1995 Author Organization [facility] t Address [address] [place] [address] Care Team Providers Name Role Phone Yanick_Yecenia Attending Clinician Unavailable Yanick_Yecenia Admitting Clinician Unavailable Payers Payer Name Policy Type Policy Number Effective Date Expiration Date S ource MEDICA (PPO) [id number] 2016 00:00:00 Problems This patient has no known problems. Allergies, Adverse Reactions, Alerts Allergy Allergy Status Severity Reaction(s) Onset Inactive Treating Comm ents Source Name Type Date Date Clinician Penicill DA Active U [facility] ins 02-18 [place] 00:00: [facility] 00 are [facility] Medications This patient has no known medications. Procedures This patient has no known procedures. Encounters Start End Encounter Admission Attending Care Care Encounter Source Date/Time Date/Time Type Type Clinicians Facility Department ID 2020-12-23 2020-12-23 Outpatient Dev [facility] [id number] [place] 05:14:00 05:14:00 [facility] 2020-05-13 2020-05-13 Outpatient TiffanyR [facility] [id number] [place] 02:38:00 02:38:00 [facility] Results Test Description Test Time Test Comments Results Result [facility] e Comments SURGICAL SPECIMENS 2019-02-27 15:48:00 --------RUN DATE: 02/27/19 [facility] - LAB PAGE 1 RUN TIME: 1549 Specimen Inquiry RUN USER: INTERFACE --------PATIENT: FAISAL ROJAS LOC: [id number] U #: [id number] AGE/SX: 24/F ROOM: [facility] RE02/18/19[facility] DR: Prakash Hogan MD : 95 BED: 1 DIS: 02/22/19 STATUS: DIS IN TLOC: -------- SPEC #: [id number] RECD: 02/20/19 STATUS: JENNIFER REEdson #: [id number] KEITH: 02/20/19-[address]: Prakash Hogan MD [...] 0.1-0.2 cm. no gross lesions are identified. Entry Level Electrical Engineer sections are submitted in cassettes as [...] CONTINUED ON NEXT PAGE --------RUN DATE: 02/27/19 [facility] LAB PAGE 2 RUN TIME: 1549 Specimen Inquiry RUN USER: INTERFACE --------SPEC #: [id number] PATIENT: FAISAL ROJAS Lizet #[id number] (Continued) -------- Signed SIGNATURE ON Dakota Dela Cruz MD 02/27/19 1548 -------- END OF REPORT GLUBED 2019-02-22 07:43:00 Test Item Value Reference Range Interpretation Comme nts GLUBED (test code = GLUBED) 93 MG/DL 70-105 N [id number] 21:01:00 Test Item Value Reference Range Interpretation Comments GLUBED (test code = GLUBED) 90 MG/DL 70-105 N [id number] 16:52:00 Test Item Value Reference Range Interpretation Comments GLUBED (test code = GLUBED) 149 MG/DL 70-105 H [id number] 11:10:00 Test Item Value Reference Range Interpretation Comments GLUBED (test code = GLUBED) 90 MG/DL 70-105 N [id number] 08:08:00 Test Item Value Reference Range Interpretation Comments GLUBED (test code = GLUBED) 116 MG/DL 70-105 H COMPREHENSIVE METABOLIC [id number] 05:44:00 Test Item Value Reference Range Interpretation [...] PHOSPHATASE (test code = ALKP) CBC W/AUTO [id number] 05:03:00 Test Item Value Reference Range Interpretation [...] = BA#) 0.0 x10 3/uL 0.0-0.1 N [id number] 20:11:00 Test Item Value Reference Range Interpretation Comments GLUBED (test code = GLUBED) 188 MG/DL 70-105 H COMPREHENSIVE METABOLIC [id number] 18:14:00 Test Item Value Reference Range Interpretation [...] 42-121 H PHOSPHATASE (test code = ALKP) [id number] 15:38:00 Test Item Value Reference Range Interpretation Comments GLUBED (test code = GLUBED) 167 MG/DL 70-105 H [id number] 13:06:00 Test Item Value Reference Range Interpretation Comments GLUBED (test code = GLUBED) 127 MG/DL 70-105 H [id number] 11:08:00 Test Item Value Reference Range Interpretation Comments GLUBED (test code = GLUBED) 139 MG/DL 70-105 H [id number] 08:23:00 Test Item Value Reference Range Interpretation Comments GLUBED (test code = GLUBED) 121 MG/DL 70-105 H ACUTE HEPATITIS [id number] 08:07:00 Test Item Value Reference Range Interpretation Comments AB HEPATITIS A IGM (test code = NEGATIVE NEGATIVE HAVMAB) AG HEPATITIS B SURFACE (test code = NEGATIVE NEGATIVE HBSAG) AB HEPATITIS B CORE IGM (test code = NEGATIVE NEGATIVE HBCMAB) AB HEPATITIS C (test code = HCVAB) NEGATIVE NEGATIVE [id number] 06:58:00 Test Item Value Reference Range Interpretation Comments AMYLASE (test code = CLIFFORD) 619 U/L 25-125 H [id number] 06:58:00 Test Item Value Reference Range Interpretation Comments LIPASE (test code = LIP) 851 IU/L 22-51 H [id number] 06:34:00 Test Item Value Reference Range Interpretation Comments AMYLASE (test code = CLIFFORD) 619 U/L 25-125 H [id number] 06:34:00 Test Item Value Reference Range Interpretation Comments LIPASE (test code = LIP) IU/L 22-51 COMPREHENSIVE METABOLIC [id number] 06:34:00 Test Item Value Reference Range Interpretation [...] H PHOSPHATASE (test code = ALKP) PROTHROMBIN [id number] 06:31:00 Test Item Value Reference Range Interpretation [...] .5 recurrent syste maury embolism. THROMBOPLASTIN TIME [id number] 06:31:00 Test Item Value Reference Range Interpretation Comments THROMBOPLASTIN TIME PARTIAL (test 35 SECONDS 25-37 N code = PTT) CBC W/AUTO [id number] 06:29:00 Test Item Value Reference Range Interpretation [...] = BA#) 0.0 x10 3/uL 0.0-0.1 N [id number] 20:25:00 Test Item Value Reference Range Interpretation Comments GLUBED (test code = GLUBED) 170 MG/DL 70-105 H [id number] 18:44:00 Test Item Value Reference Range Interpretation Comments GLUBED (test code = GLUBED) 152 MG/DL 70-105 H COMPREHENSIVE METABOLIC [id number] 15:29:00 Test Item Value Reference Range Interpretation [...] 42-121 H PHOSPHATASE (test code = ALKP) [id number] 12:38:00 Test Item Value Reference Range Interpretation Comments GLUBED (test code = GLUBED) 122 MG/DL 70-105 H HGBA1C - GLYCOSYLATED [id number] 11:51:00 Test Item Value Reference Range Interpretation Comments GLYCOSYLATED HEMOGLOBIN 6.3 % 4.0-6.0 H Inte rpretive Data: (HA1C) (test code = Caution should be GLYHGB) exercised when interpreting th e HgbA1c in patients wit h hemolytic anemi a, iron deficiency and when the total hemoglobi n is < 9g/dL, due to a decrease in average age of red blood cells - MRI [id number] 11:17:00Patient Name: FAISAL ROJAS Unit No: [id number] EXAMS: CPT: [id number] MRI MRCP 01701 MRCP: HISTORY: Dilated common bile duct. COMPARISON: Ultrasound from February 18, 2019 TECHNIQUE: Multisequence multiplanar MR imaging of the abdomen without contrast. FINDINGS: The common bile duct is mildly dilated measuring 7 mm. Trace intrahepatic biliary dilatation. No bile duct stone or stricture seen. Thereis no evidence of pancreas divisum. Pancreatic duct is not dilated. No focal pancreatic lesion identified. No focal hepatic lesion is seen by MRI. There is a small gallstone in the gallbladder. Adrenalglands, spleen, kidneys unremarkable. No evidence of bowel [...] (1120) BATCH NO: N/A Name: FAISAL ROJAS [facility] Phys:YASMIN. Prakash Hogan [address] : 1995 Age: 24 Sex: F [place], [place] [address]Mhvl No: [id number] Loc: N.[id number] 1 Exam Date: 02/18/2019 Status: ADM IN PH: FAX: PAGE 1 Signed ReportCOMPREHENSIVE METABOLIC [id number] 08:30:00 Test Item Value Reference Range Interpretation [...] 42-121 H PHOSPHATASE (test code = ALKP) [id number] 08:23:00 Test Item Value Reference Range Interpretation Comments GLUBED (test code = GLUBED) 139 MG/DL 70-105 H CBC W/AUTO [id number] 08:08:00 Test Item Value Reference Range Interpretation [...] = BA#) 0.0 x10 3/uL 0.0-0.1 N [id number] 23:40:00 Test Item Value Reference Range Interpretation Comments AMYLASE (test code = CLIFFORD) 1232 U/L 25-125 H BASIC METABOLIC [id number] 23:26:00 Test Item Value Reference Range Interpretation [...] mg/dL 8.5-10.5 N = CA) LIVER FUNCTION [id number] 23:26:00 Test Item Value Reference Range Interpretation [...] code = 232 U/L 42-121 H ALKP) [id number] 23:26:00 Test Item Value Reference Range Interpretation Comments LIPASE (test code = LIP) 4026 IU/L 22-51 H BASIC METABOLIC [id number] 22:34:00 Test Item Value Reference Range Interpretation [...] mg/dL 8.5-10.5 N = CA) LIVER FUNCTION [id number] 22:34:00 Test Item Value Reference Range Interpretation [...] code = 232 U/L 42-121 H ALKP) [id number] 22:34:00 Test Item Value Reference Range Interpretation Comments LIPASE (test code = LIP) IU/L 22-51 URINALYSIS [id number] 22:23:00 Test Item Value Reference Range Interpretation [...] FEW /HPF NONE SEEN AMORU) HCG SERUM [id number] 22:19:00 Test Item Value Reference Range Interpretation Comments HCG SERUM QUAL NEGATIVE NEGATIVE This is a brigette litative (test code = HCGQL) screenin g test.The quantitative Bh cg may be helpful.Weakly positive results should be repeated in 48 hours. CBC W/AUTO [id number] 22:12:00 Test Item Value Reference Range Interpretation [...] x10 3/uL 0.0-0.1 N - US ABDOMEN [id number] 18:30:00Patient Name: FAISAL ROJAS Unit No: [id number] EXAMS: CPT: [id number] US ABDOMEN LTD [id number] ULTRASOUND: RIGHT UPPER QUADRANT CLINICAL HISTORY: Abdominal [...] (1830) by:Telly Orig Print D/T: S: 02/18/2019 (1833)BATCH NO: N/A Name: BOBFAISAL [facility] Phys: Breanna Herman DO [address] 1995 Age: 24 Sex: F [place] [address] Loc: N.ERS Exam Date: 02/18/2019 Status: PRE ER PH: FAX: PAGE 1 Signed Report
[2022-10-21 22:17] LABS: Absolute Lymphocytes (CBC) 5.1 K/uL (0.7-4.9); Hematocrit 41.6 % (36.0-45.0); Lymphocytes % 38.5 % (15.3-44.8); MCV 86.4 fL (80-100); MPV 8.5 fL (7.6-11.3); RBC Red Blood Cell Count 4.82 M/uL (3.86-4.86)
[2022-10-21 22:24] LABS: Specific Gravity 1.021 (1.005-1.030); Urine Bacteria None Seen /HPF (<20); Urine Bilirubin NEGATIVE (Negative); Urine Blood Negative (Negative); Urine Clarity Clear (Clear); Urine Color Light-Yellow (Yellow); Urine Glucose 4+ (Over) (Negative); Urine Mucus Slight /HPF (None Seen); Urine Protein NEGATIVE (Negative); Urine RBC <5 /HPF (None Seen); Urine Urobilinogen Normal (Normal)
[2022-10-21 22:42] LABS: Bilirubin Total 0.7 mg/dL (0.2-1.0); Protein, Total 8.2 g/dL (6.4-8.2)
[2022-10-21 22:43] LABS: Potassium 3.8 mEq/L (3.5-5.1)
[2022-10-21] MEDS ORDERED: KETOROLAC 30 MG/ML INJ ONE (22:43)
[2022-10-21] MEDS ORDERED: CEFTRIAXONE 1000 MG/VIAL ONE (22:43)
[2022-10-21] MEDS ORDERED: NA CHLORIDE 0.9% 50 ML ONE (22:44)
[2022-10-21] MEDS ORDERED: NA CHLORIDE 0.9% 1,000 ML ONE (22:44)
[2022-10-21] MEDS ORDERED: ONDANSETRON 4 MG/2 ML VIAL ONE (22:44)
[2022-10-21] MEDS ORDERED: METRONIDAZOLE 500mg IVPB 500 MG/100 ML BAG IV ONE (22:44)
--- NOTE | 2022-10-22 01:51 | ER ---
Nurse's Notes [facility] Name: Shania Martino Age: 27 yrs Sex: Female : 1995 Arrival Date: 10/21/2022 Time: 20:11 Bed 15 Private MD: Diagnosis: Female pelvic inflammatory disease, unspecified;Pelvic and perineal pain Presentation: 10/21 20:19 Chief complaint: Patient states: "Im having really bad lower abdominal pain by my vc1 ovaries. I was supposed to have surgery in May because I had an infection on my ovaries but I was scared so I just did antibiotics. Now the pain is so bad and I was running a 103.3 fever. I also think I have a cold.". Coronavirus screen: Vaccine status: Patient reports being unvaccinated. At this time, the client does not indicate any symptoms associated with coronavirus-19. Ebola Screen: Patient negative for fever greater than or equal to 101.5 degrees Fahrenheit, and additional compatible Ebola Virus Disease symptoms Patient denies exposure to infectious person. Patient denies travel to an Ebola-affected area in the 21 days before illness onset. No symptoms or risks identified at this time. Risk Assessment: Do you want to hurt yourself or someone else? Patient reports no desire to harm self or others. Onset of symptoms is unknown. 20:19 Method Of Arrival: Ambulatory vc1 20:19 Acuity: NEGRO 3 vc1 20:25 Initial Sepsis Screen: Does the patient meet any 2 criteria? HR > 90 bpm. No. Patient's vc1 initial sepsis screen is negative. Does the patient have a suspected source of infection? No. Patient's initial sepsis screen is negative. Triage Assessment: 20:22 General: Appears in no apparent distress. uncomfortable, Behavior is calm, cooperative, vc1 appropriate for age. Pain: Complains of pain in suprapubic area, right inguinal area and left inguinal area Pain does not radiate. Pain currently is 8 out of 10 on a pain scale. EENT: No deficits noted. No signs and/or symptoms were reported regarding the EENT system. Neuro: Level of Consciousness is awake, alert, obeys commands, Oriented to person, place, time, situation, Appropriate for age. Cardiovascular: No deficits noted. Respiratory: Airway is patent Respiratory effort is even, unlabored, Respiratory pattern is regular, symmetrical. GI: No deficits noted. No signs and/or symptoms were reported involving the gastrointestinal system. : No deficits noted. No signs and/or symptoms were reported regarding the genitourinary system. : Reports cramping, in right in left lower quadrant(s). Derm: No deficits noted. Derm: No signs and/or symptoms reported regarding the dermatologic system. Musculoskeletal: No deficits noted. No signs and/or symptoms reported regarding the musculoskeletal system. 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 - Social history:: Smoking status: Patient reports the use of cigarette tobacco products, 1 pack per week. - Family history:: not pertinent. Screenin:23 Abuse screen: Denies threats or abuse. Nutritional screening: No deficits noted. vc1 Tuberculosis screening: No symptoms or risk factors identified. 10/22 00:00 [facility] ED Fall Risk Assessment (Adult) History of falling in the last 3 months, vc1 including since admission No falls in past 3 months (0 pts) Confusion or Disorientation No (0 pts) Intoxicated or Sedated No (0 pts) Impaired Gait No (0 pts) Mobility Assist Device Used No (0 pt) Altered Elimination No (0 pt) Score/Fall Risk Level 0 - 2 = Low Risk Oriented to surroundings, Maintained a safe environment, Educated pt \\T\\ family on fall prevention, incl call for assistance when getting out of bed. Assessment: 10/21 21:30 Reassessment: See triage assessment. vc1 22:30 Reassessment: No changes from previously documented assessment. Patient and/or family vc1 updated on plan of care and expected duration. Pain level reassessed. Patient is alert, oriented x 3, equal unlabored respirations, skin warm/dry/pink. 23:30 Reassessment: No changes from previously documented assessment. Patient and/or family vc1 updated on plan of care and expected duration. Pain level reassessed. Patient is alert, oriented x 3, equal unlabored respirations, skin warm/dry/pink. 10/22 01:02 Reassessment: No changes from previously documented assessment. Patient and/or family vc1 updated on plan of care and expected duration. Pain level reassessed. Patient is alert, oriented x 3, equal unlabored respirations, skin warm/dry/pink. Patient states symptoms have improved. 02:30 Reassessment: Patient and/or family updated on plan of care and expected duration. Pain vc1 level reassessed. Patient is alert, oriented x 3, equal unlabored respirations, skin warm/dry/pink. Patient states feeling better. Patient states symptoms have improved. Vital Signs: 10/21 20:19 Weight 68.04 kg; Height 4 ft. 6 in. ; Pain 8/10; vc1 20:24 BP 118 / 79; Pulse 108; Resp 18; Temp 99.5; Pulse Ox 98% ; vc1 21:24 BP 116 / 74; Pulse 95; Resp 17; Pulse Ox 100% on R/A; vc1 22:44 BP 116 / 71; Pulse 94; Resp 17; Pulse Ox 98% ; vc1 10/22 01:06 BP 100 / 50; Pulse 91; Pulse Ox 98% ; vc1 02:00 BP 98 / 65; Pulse 84; Resp 17; Pulse Ox 98% on R/A; vc1 10/21 20:19 Body Mass Index 34.86 (68.04 kg, 139.7 cm) vc1 10/21 20:19 Pain Scale: Adult vc1 ED Course: 10/21 20:15 Patient arrived in ED. jj6 20:21 Triage completed. vc1 20:21 Amor Burkett PA is PHCP. jmm 20:21 Tony Smith MD is Attending Physician. jmm 20:23 Arm band placed on right wrist. vc1 20:51 Tony Smith MD is Attending Physician. sp4 21:42 Harleen Dennison, ANASTASIA is Primary Nurse. vc1 22:00 Patient has correct armband on for positive identification. Placed in gown. Bed in low vc1 position. Call light in reach. Pulse ox on. NIBP on. 23:05 CT Abdomen - IV Contrast Only In Process Unspecified. EDMS 23:25 Assist provider with pelvic exam: Set up pelvic tray. Performed by Tony Smith MD pf1 Patient tolerated well. 10/22 01:47 Mason Michel MD is Referral Physician. sp4 02:42 IV discontinued, intact, bleeding controlled, No redness/swelling at site. Pressure vc1 dressing applied. Administered Medications: 10/21 22:25 Drug: Rocephin - Rocephin (cefTRIAXone) IVPB 1 grams Route: IVPB; Infused Over: 30 vc1 mins; Site: left antecubital; 22:55 Follow up: Response: No adverse reaction; IV Status: Completed infusion; IV Intake: [id number] 22:45 Drug: Ketorolac IVP 30 mg Route: IVP; Site: left antecubital; vc1 23:30 Follow up: Response: No adverse reaction; Marked relief of symptoms; Pain is decreased vc1 22:45 Drug: Ondansetron IVP 4 mg Route: IVP; Site: left antecubital; vc1 23:15 Follow up: Response: No adverse reaction; Marked relief of symptoms vc1 22:50 Drug: NS 0.9% IV 1000 ml Route: IV; Rate: 1 bolus; Site: left antecubital; vc1 23:50 Follow up: IV Status: Completed infusion; IV Intake: 1000ml vc1 22:50 Drug: metroNIDAZOLE IVPB 500 mg Volume: 100 ml; Route: IVPB; Rate: 200 ml/hr; Infused vc1 Over: 30 mins; Site: left antecubital; 23:35 Follow up: Response: No adverse reaction; IV Status: Completed infusion; IV Intake: vc1 100ml 10/22 02:38 Drug: [place]ning[place] PO 10 mg-325 mg 1 tabs Route: PO; vc1 02:43 Follow up: Response: Medication administered at discharge. vc1 02:38 Drug: Doxycycline PO 100 mg Route: PO; vc1 02:44 Follow up: Response: Medication administered at discharge. vc1 02:38 Drug: Promethazine PO 25 mg Route: PO; vc1 02:44 Follow up: Response: Medication administered at discharge. vc1 02:38 Drug: Fluconazole PO 200 mg Route: PO; vc1 02:44 Follow up: Response: Medication administered at discharge. vc1 Medication: 00:01 VIS not applicable for this client. vc1 Intake: 10/21 22:55 IV: 50ml; Total: 50ml. vc1 23:35 IV: 100ml; Total: 150ml. vc1 23:50 IV: 1000ml; Total: 1150ml. vc1 Outcome: 10/22 01:50 Discharge ordered by sp4 02:42 Discharged to home ambulatory. vc1 02:42 Condition: good 02:42 Discharge instructions given to patient, Instructed on discharge instructions, follow up and referral plans. medication usage, Demonstrated understanding of instructions, follow-up care, medications, Prescriptions given X 5 02:45 Patient left the ED. vc1 Signatures: Dispatcher [employer] EDMS Amor Burkett PA PA jmm Jeffries, Jennifer jj6 Harleen Dennison RN RN vc1 Diana lovell RN RN pf1 Tony Smith MD MD sp4
--- NOTE | 2022-10-22 01:51 | EDPHYS ---
Physician Documentation [facility] – [place], [place] Name: Shania Martino Age: 27 yrs Sex: Female : 1995 Arrival Date: 10/21/2022 Time: 20:11 Bed 15 Private MD: ED Physician Tony Smith HPI: 10/21 20:51 This 27 yrs old Other Female presents to ER via Ambulatory with complaints of Pelvic sp4 Pain, Fever. 23:18 27-year-old female with past medical history of left ovarian type infection presents sp4 with acute onset of left lower pelvic pain starting 1 week ago associated with fever at home of 103.0 just prior to presentation associated with nausea. Patient reports clear to yellowish vaginal discharge. . UT[employer]ER: 20:23 LMP 10/07/2022 vc1 Historical: - Allergies: 20:21 PENICILLINS; vc1 - PMHx: 20:21 Asthma; Bipolar disorder; Depression; Diabetes - IDDM; epilepsy; Schizophrenia; vc1 - PSHx: 20:21 Cholecystectomy; Tonsillectomy; vc1 - Immunization history:: Client reports having NOT received the Covid vaccine. - Social history:: Smoking status: Patient reports the use of cigarette tobacco products, 1 pack per week. - Family history:: not pertinent. ROS: 23:18 Constitutional: Negative for chills, and weight loss, positive for fever at home Eyes: sp4 Negative for injury, pain, redness, and discharge, ENT: Negative for injury, pain, and discharge, Neck: Negative for injury, pain, and swelling, Cardiovascular: Negative for chest pain, palpitations, and edema, Respiratory: Negative for shortness of breath, cough, wheezing, and pleuritic chest pain, Abdomen/GI: Negative for vomiting, diarrhea, and constipation, positive for lower abdominal pain, left lower pelvic pain, and nausea Back: Negative for injury and pain, : Negative for injury, bleeding, and swelling, positive for left pelvic pain and vaginal discharge MS/Extremity: Negative for injury and deformity, Skin: Negative for injury, rash, and discoloration, Neuro: Negative for headache, weakness, numbness, tingling, and seizure, Psych: Negative for depression, anxiety, Allergy/Immunology: Negative for hives, rash, and allergies Endocrine: Negative for neck swelling, polydipsia, polyuria, polyphagia, and weight changes Hematologic/Lymphatic: Negative for swollen nodes, abnormal bleeding, and unusual bruising Exam: 23:18 Constitutional: This is a well developed, well nourished patient who is awake, alert, sp4 and in no acute distress. Head/Face: Normocephalic, atraumatic. Eyes: Pupils equal round and reactive to light, extra-ocular motions intact. Lids and lashes normal. Conjunctiva and sclera are not injected. Cornea within normal limits. Periorbital areas with no swelling, redness, or edema. ENT: Nares patent. No nasal discharge, no septal abnormalities noted. Tympanic membranes are normal and external auditory canals are clear. Oropharynx with no redness, swelling, or masses, exudates, or evidence of obstruction, uvula midline. Mucous membranes moist. Neck: Trachea midline, no thyromegaly or masses palpated, and no cervical lymphadenopathy. Supple, full range of motion without nuchal rigidity, or vertebral point tenderness. No Meningismus. Chest/axilla: Normal chest wall appearance and motion. Nontender with no deformity. No lesions are appreciated. Cardiovascular: Regular rate and rhythm with a normal S1 and S2. No gallops, murmurs, or rubs. Normal PMI, no JVD. No pulse deficits. Respiratory: Lungs have equal breath sounds bilaterally, clear to auscultation and percussion. No rales, rhonchi or wheezes noted. No increased work of breathing, no retractions or nasal flaring. Abdomen/GI: Soft, non-tender, with normal bowel sounds. No distension or tympany. No guarding or rebound. No evidence of tenderness throughout. Back: No spinal tenderness. No costovertebral tenderness. Skin: Warm, dry with normal turgor. Normal color with no rashes, no lesions, and no evidence of cellulitis. MS/ Extremity: Pulses equal, no cyanosis. Neurovascular intact. Full, normal range of motion. Neuro: Awake and alert, GCS 15, oriented to person, place, time, and situation. Cranial nerves II-XII grossly intact. Motor strength 5/5 in all extremities. Sensory grossly intact. Psych: Awake, alert, with orientation to person, place and time. Behavior, mood, and affect are within normal limits 23:27 : Pelvic Exam: External exam: is normal, no erythema, not excoriated, no lesions, no sp4 ulcerations, no warts seen, Speculum exam: no bleeding is noted, no cervicitis, os that is closed, no tissue in vagina is seen, discharge, yellow, the nurse was present for the exam. Vital Signs: 20:19 Weight 68.04 kg; Height 4 ft. 6 in. ; Pain 8/10; vc1 20:24 BP 118 / 79; Pulse 108; Resp 18; Temp 99.5; Pulse Ox 98% ; vc1 21:24 BP 116 / 74; Pulse 95; Resp 17; Pulse Ox 100% on R/A; vc1 22:44 BP 116 / 71; Pulse 94; Resp 17; Pulse Ox 98% ; vc1 10/22 01:06 BP 100 / 50; Pulse 91; Pulse Ox 98% ; vc1 02:00 BP 98 / 65; Pulse 84; Resp 17; Pulse Ox 98% on R/A; vc1 10/21 20:19 Body Mass Index 34.86 (68.04 kg, 139.7 cm) vc1 10/21 20:19 Pain Scale: Adult vc1 MDM: 01:39 Differential diagnosis: viral Infection, bacterial infection, pneumonia UTI, sp4 gastroenteritis, Pelvic inflammatory disease. Data reviewed: vital signs, nurses notes, lab test result(s), CBC, electrolytes, hepatic panel, urinalysis, UPT: radiologic studies, CT scan. Consideration of Admission/Observation Escalation of care including admission/observation considered. ED course: CT revealed no acute abdominal or pelvic abnormality, bilateral ovarian cysts measuring up to 2.3 cm on the right side decompressed bladder, no follow-up imaging was recommended by radiology. . 10/21 20:51 Order name: CBC with Diff; Complete Time: 22:36 sp4 10/21 20:51 Order name: CMP; Complete Time: 23:21 sp4 10/21 20:51 Order name: Lipase; Complete Time: 23:21 sp4 10/21 20:51 Order name: Test, Urine; Complete Time: 22:36 sp4 10/21 20:51 Order name: Urinalysis w/ reflexes; Complete Time: 22:36 sp4 10/21 21:01 Order name: CT Abdomen - IV Contrast Only 4 10/21 20:51 Order name: IV Saline Lock; Complete Time: 22:35 sp4 10/21 20:51 Order name: Labs collected and sent; Complete Time: 22:35 sp4 10/21 21:01 Order name: Pelvic Exam Setup; Complete Time: 22:35 sp4 Administered Medications: 10/21 22:25 Drug: Rocephin - Rocephin (cefTRIAXone) IVPB 1 grams Route: IVPB; Infused Over: 30 vc1 mins; Site: left antecubital; 22:55 Follow up: Response: No adverse reaction; IV Status: Completed infusion; IV Intake: [id number] 22:45 Drug: Ketorolac IVP 30 mg Route: IVP; Site: left antecubital; vc1 23:30 Follow up: Response: No adverse reaction; Marked relief of symptoms; Pain is decreased vc1 22:45 Drug: Ondansetron IVP 4 mg Route: IVP; Site: left antecubital; vc1 23:15 Follow up: Response: No adverse reaction; Marked relief of symptoms vc1 22:50 Drug: NS 0.9% IV 1000 ml Route: IV; Rate: 1 bolus; Site: left antecubital; vc1 23:50 Follow up: IV Status: Completed infusion; IV Intake: 1000ml vc1 22:50 Drug: metroNIDAZOLE IVPB 500 mg Volume: 100 ml; Route: IVPB; Rate: 200 ml/hr; Infused vc1 Over: 30 mins; Site: left antecubital; 23:35 Follow up: Response: No adverse reaction; IV Status: Completed infusion; IV Intake: vc1 100ml 10/22 02:38 Drug: [place] PO 10 mg-325 mg 1 tabs Route: PO; vc1 02:43 Follow up: Response: Medication administered at discharge. vc1 02:38 Drug: Doxycycline PO 100 mg Route: PO; vc1 02:44 Follow up: Response: Medication administered at discharge. vc1 02:38 Drug: Promethazine PO 25 mg Route: PO; vc1 02:44 Follow up: Response: Medication administered at discharge. vc1 02:38 Drug: Fluconazole PO 200 mg Route: PO; vc1 02:44 Follow up: Response: Medication administered at discharge. vc1 Disposition: 01:39 Co-signature as Attending Physician, Tony Smith MD I agree with the assessment sp4 and plan of care. I reviewed the patient's care provided by Advanced Practice Provider \T\ agree w/ the diagnosis \T\ care plan. I personally saw the pt \T\ performed a substantive portion of the visit, incldng all aspects of the (History/Exam/Medical Decision Making). Disposition Summary: 10/22/22 01:50 Discharge Ordered Location: Home sp4 Problem: new sp4 Symptoms: have improved sp4 Condition: Stable sp4 Diagnosis - Female pelvic inflammatory disease, unspecified sp4 - Pelvic and perineal pain sp4 Followup: sp4 - With: Mason Michel MD - When: 7 - 10 days - Reason: Recheck today's complaints Discharge Instructions: - Discharge Summary Sheet sp4 - Pelvic Inflammatory Disease sp4 Forms: - Thank You Letter sp4 - Antibiotic Education sp4 - Prescription Opioid Use sp4 Prescriptions: - Flagyl 500 mg Oral Tablet - take 1 tablet by ORAL route every 8 hours for 10 days; 30 tablet; Refills: 0, sp4 Product Selection Permitted - Zofran 4 mg Oral Tablet - take 1 tablet by ORAL route every 6 hours As needed; 20 tablet; Refills: 0, sp4 Product Selection Permitted - Fluconazole 200 mg Oral Tablet - take 1 tablet by ORAL route once daily; 10 tablet; Refills: 0, Product sp4 Selection Permitted - Tramadol 50 mg Oral Tablet - take 1 tablet by ORAL route every 8 hours as needed; 20 tablet; Refills: 0, sp4 Product Selection Permitted - Doxycycline Monohydrate 100 mg Oral Tablet - take 1 tablet by ORAL route every 12 hours for 10 days; 20 tablet; Refills: 0, sp4 Product Selection Permitted Signatures: Dispatcher [employer] EDAmor Maciel PA PA jmm Calcote, Vanessa RN RN vc1 Tony Smith MD MD sp4 Corrections: (The following items were deleted from the chart) 10/21 20:27 20:21 Patient medically screened. mariano quintana
[2022-10-22] MEDS ORDERED: PROMETHAZINE 25 MG TABLET ONE (02:31)
[2022-10-22] MEDS ORDERED: HYDROCODONE/APAP 10/325 TAB ONE (02:31)
[2022-10-22] MEDS ORDERED: FLUCONAZOLE 100 MG TAB ONE (02:31)
[2022-10-22] MEDS ORDERED: DOXYCYCLINE 100 MG CAP PO ONE (02:32)
[2022-10-22 03:23] VITALS: TEMP 99.5
[2022-10-22 03:27] VITALS: O2SAT 98
[2022-10-22 03:30] VITALS: BP 98/65
--- NOTE | 2022-10-23 16:00 | RAD REPORT ---
EXAM DESCRIPTION: CT - Abdomen W Contrast - 10/22/2022 7:28 am CLINICAL HISTORY: The patient is 27 years old and is Female; lower abd PAIN TECHNIQUE: Axial computed tomography images of the abdomen with intravenous contrast. Sagittal and coronal reformatted images were created and reviewed. This CT exam was performed using one or more of the following dose reduction techniques: automated exposure control, adjustment of the mA and/o r kV according to patient size, and/or use of iterative reconstruction technique. COMPARISON: CT abdomen and pelvis dated 06/10/2022. FINDINGS: LUNG BASES: Lung bases are clear. HEART: Visualized heart is normal. LIVER: Unremarkable. No mass. GALLBLADDER AND BILE DUCTS: Prior cholecystectomy. No ductal dilation. PANCREAS: Unremarkable. No mass. No ductal dilation. SPLEEN: Unremarkable. No splenomegaly. ADRENALS: Unremarkable. No mass. KIDNEYS AND URETERS: Unremarkable. No solid mass. No hydronephrosis. STOMACH AND BOWEL: Unremarkable. No obstruction. No mucosal thickening. APPENDIX: The appendix is seen and is within normal limits. INTRAPERITONEAL SPACE: Unremarkable. No free air. No significant fluid collection. BONES/JOINTS: No acute fracture. No dislocation. SOFT TISSUES: Small fat-containing lumbrical hernia. VASCULATURE: Unremarkable. No abdominal aortic aneurysm. LYMPH NODES: Unremarkable. No enlarged lymph nodes. OTHER FINDINGS: Bilateral ovarian cysts measuring up to 2.3 cm on the right. Bladder is decompres sed. IMPRESSION: 1. No acute abdominal or pelvic abnormality. 2. Bilateral ovarian cysts measuring up to 2.3 cm on the right. No follow-up imaging is recommended . Reference: JACR 2019;17(2):248-254 Electronically signed by: Ronny Garcia DO 10/21/2022 11:30 PM CDT Due to temporary technical issues with the PACS/Fluency reporting system, reports are being signed by the in house radiologists without review as a courtesy to insure prompt reporting. The interpreting radiologist is fully responsible for the content of the report.
== END 2022-10-22 02:45 | disposition home or self-care (01) ==
LOC: ER 20:11
DX: N73.9 Female pelvic inflammatory disease, unspecified (principal)
CPT/HCPCS: 36415; 74160; 80053; 81001; 81025; 83690; 85025; 96365; 96375; 99284; J0696; J2405; J7030; Q0169; Q9967